=== PATIENT | male | born 1970 | race Caucasian/White ===

== ENCOUNTER 2022-11-24 13:33 | Inpatient (IN) ==
[2022-11-24 14:33] LABS: Basophils # (auto) 0.02 K/uL (0-0.2); Basophils % (auto) 0.2 %; Eosinophils # (auto) 0.04 K/uL (0-0.50); Eosinophils % (auto) 0.5 %; Hematocrit (blood only) 45.7 % (42.0-52.0); Immature Granulocytes # (auto) 0.02 K/uL (0.01-0.20); Immature Granulocytes % (auto) 0.2 %; Lymphocytes # (auto) 2.02 K/uL (1.2-3.4); Lymphocytes % (auto) 23.8 %; Mean Corpuscular Hemoglobin 31.3 pg (25.0-34.0); Mean Corpuscular Volume 89.3 fL (80.0-100.0); Mean Platelet Volume 9.6 fL (9.4-12.4); Monocytes # (auto) 0.63 K/uL (0.11-0.59); Monocytes % (auto) 7.4 %; Neutrophils # (auto) 5.76 K/uL (1.40-6.50); Neutrophils % (auto) 67.9 %; Platelet Count 217 K/uL (130-400); RDW Coefficient of Variation 11.9 % (11.5-14.5); RDW Standard Deviation 38.9 fL (36.4-46.3); Red Blood Count 5.12 M/uL (4.70-6.10); White Blood Count 8.49 K/ul (4.8-10.8)
[2022-11-24 14:41] LABS: Albumin Globulin Ratio 1.2 (0.9-2); Albumin Level 4.2 gm/dl (3.4-5.0); Bilirubin,Total 1.4 mg/dl (0.2-1.0); Calcium 9.8 mg/dl (8.6-10.3); Creatinine Clr Calc Pharmacy 90.1 ml/min; Est GFR (African American) 98.5 ml/min; Est GFR (Non-African American) 84.9 ml/min; Globulin 3.5 gm/dl (2.5-4.0); Potassium 3.8 mmol/L (3.5-5.1); Total Protein 7.7 gm/dl (6.0-8.3)
[2022-11-24] MEDS ORDERED: KETOROLAC TROMETHAMINE 15 MG/ML VIAL IV STA (15:35)
[2022-11-24] MEDS ORDERED: MoRPHine SULFATE 4 MG/ML 1 ML CARP\\VIAL IV STA (15:35)
[2022-11-24] MEDS ORDERED: ONDANSETRON INJ 2 MG/ML 2 ML VIAL IV STA (15:35)
[2022-11-24] MEDS ORDERED: SODIUM CHLORIDE 0.9% 1000ML 1,000 ML IV ONE (15:35)
[2022-11-24 15:38] LABS: Appearance Urine Cloudy (Clear); Bacteria Urine Automated Negative (Negative); Bilirubin Urine Negative (Negative); Blood Urine Negative (Negative); Color Urine Dark Yellow; Epithelial Cell Urine Auto >30 /lpf (0-5); Glucose Urine UA Negative (Negative); Ketones Urine 1+ (Negative); Leukocyte Esterase Urine Negative (Negative); Nitrite Urine Negative (Negative); RBC Urine Automated 0-4 /hpf (0-4); Specific Gravity Urine 1.017 (1.000-1.030); Urobilinogen Urine Negative (Negative); pH Urine 8.5 (4.5-7.5)
[2022-11-24 15:43] LABS: Protein Urine Trace (Negative)
--- NOTE | 2022-11-24 15:44 | Emergency Department Note ---
Impression & Plan Diverticulitis, Bowel perforation, Lower abdominal pain ED Provider Note NAME: BRENDAN CHAUDHARI AGE: 52 SEX: M : 1970 ARRIVES VIA: Walk-In INFORMANT: [Patient] ED PROVIDER(S): [Henrik Mcbride MD] CHIEF COMPLAINT: Abdominal pain HISTORY OF PRESENT ILLNESS: The patient is a 52-year-old male who states that 3 days ago he began feeling bloated. The next day, he began having some abdominal cramping and developed a fever. Things have worsened into today. The patient complains of lower abdominal pain. He has tried MiraLAX and now his stool is loose but he feels no better. He has had nausea without vomiting. No cough or congestion or respiratory complaints. No urinary complaints. He has no history of diverticulitis. He has never had surgical work on the abdomen other than an inguinal hernia repair on the right. PMHx/PSHx: See Below SOCIAL HISTORY: See Below. PHYSICAL EXAM: GENERAL: Patient is in no acute distress. HEENT: No acute trauma, normocephalic atraumatic, mucous membranes moist, no nasal congestion. NECK: No stridor, no adenopathy, no meningismus, trachea is midline. LUNGS: Clear to auscultation bilaterally, no wheeze, no rhonchi, breath sounds equal. HEART: Without murmurs gallops or rubs, regular rate and rhythm. ABDOMEN: Soft, mildly tender in the left lower quadrant and significantly tender in the right lower quadrant. No abdominal distention. EXTREMITIES: No cyanosis or edema, full range of motion of all the joints without pain or difficulty, no signs for acute trauma. NEUROLOGIC: Oriented x 3, no acute motor or sensory deficits, no focal weakness. SKIN: No rash, no jaundice, no diaphoresis. DIFFERENTIAL DIAGNOSIS: Appendicitis, diverticulitis, abscess, foodborne or viral illness, UTI, renal colic, among others. EMERGENCY DEPARTMENT COURSE/PROCEDURES: Prior/Outside records reviewed: None. MEDICAL DECISION MAKING: There is no leukocytosis or anemia. There is a normal platelet count. INR is slightly elevated, PTTR is normal. There is no renal failure or significant electrolyte abnormality. Bilirubin is mildly elevated, the remaining liver enzymes are unremarkable. Lipase is elevated at 238, not high enough to truly diagnose pancreatitis. Urinalysis suggests some dehydration, no infection. COVID test returned negative. Abdominal and pelvis CT shows diverticulitis with bowel perforation and presumed peritonitis. No abscess seen. On my exam, the patient was quite tender in the right lower quadrant. He was not toxic. Patient received IV saline for hydration. He was given IV Zofran and IV morphine. He received IV Toradol. The patient was given IV ceftriaxone and IV Flagyl as antibiotic coverage. Patient feels improved with our treatment here in the ED. I did speak with surgery, Dr. Cruz. He felt the patient should be admitted medically. No acute surgical intervention currently necessary. I spoke with the patient and case management, I did speak with the on-call hospitalist. Admission is warranted. DISPOSITION: Patient's presentation and findings warrant a hospital stay. Past Med/Surg History Medical History Deep vein thrombosis Diverticulitis of colon with perforation Factor V Leiden History of pulmonary embolus (PE) Surgical History H/O hernia repair History of colonoscopy Family History Other Breast cancer Family history of factor V Leiden mutation Family history of pancreatic cancer Social History Smoking Status: Never smoker Preferred Language: Turkish Feels Safe at Home: Yes Allergies Allergies Allergy/AdvReac Type Severity Reaction Status Date / Time Penicillins Allergy Unknown CHILDHOOD Verified 11/24/22 16:10 ALLERGY-UNKNOWN Home Meds Home Medications Medication Instructions Recorded Confirmed warfarin 5 mg tablet 5 mg PO DAILY 11/24/22 11/24/22 Results & Data (ED) Vital Signs Vital Signs - 24 hr 11/24/22 13:42 11/24/22 16:09 11/24/22 16:00 Temperature 36.3 C L Temperature Source Temporal Artery Scan Pulse Rate 60 77 Pulse Rate [Right Finger] 78 Pulse Rate from SpO2 Sensor Pulse Rhythm [Right Finger] Regular Pulse Strength [Right Finger] Normal Respiratory Rate 22 18 Respiratory Effort / Characteristics Non-Labored Non-Labored Respiratory Depth Normal Normal Respiratory Pattern Regular Regular Blood Pressure 109/55 L Blood Pressure [Right Arm] 110/71 Blood Pressure Mean 73 Blood Pressure Mean [Right Arm] 84 Blood Pressure Position [Right Arm] Lying Pulse Oximetry 99 98 Oxygen Delivery Method Room Air Room Air Sepsis Recent Fever Within 48 Hours No Sepsis New/Unexplained Change in Mental Status N/A Sepsis Action Taken by Nursing No Action Required 11/24/22 15:59 11/24/22 16:00 11/24/22 17:00 Temperature Temperature Source Pulse Rate 77 74 82 Pulse Rate [Right Finger] Pulse Rate from SpO2 Sensor 76 77 83 Pulse Rhythm [Right Finger] Pulse Strength [Right Finger] Respiratory Rate 16 14 19 Respiratory Effort / Characteristics Respiratory Depth Respiratory Pattern Blood Pressure Blood Pressure [Right Arm] Blood Pressure Mean Blood Pressure Mean [Right Arm] Blood Pressure Position [Right Arm] Pulse Oximetry 96 97 100 Oxygen Delivery Method Sepsis Recent Fever Within 48 Hours Sepsis New/Unexplained Change in Mental Status Sepsis Action Taken by Nursing 11/24/22 18:00 Temperature Temperature Source Pulse Rate Pulse Rate [Right Finger] Pulse Rate from SpO2 Sensor 80 Pulse Rhythm [Right Finger] Pulse Strength [Right Finger] Respiratory Rate 23 Respiratory Effort / Characteristics Respiratory Depth Respiratory Pattern Blood Pressure Blood Pressure [Right Arm] Blood Pressure Mean Blood Pressure Mean [Right Arm] Blood Pressure Position [Right Arm] Pulse Oximetry 97 Oxygen Delivery Method Sepsis Recent Fever Within 48 Hours Sepsis New/Unexplained Change in Mental Status Sepsis Action Taken by [facility] Medications Current Medication List: was personally reviewed by me Laboratory Data Attestation: I reviewed the patient's lab results. 11/24/22 13:52 11/24/22 13:52 Lab Results 11/24/22 11/24/22 11/24/22 Range/Units 13:52 13:52 13:52 WBC 8.49 (4.8-10.8) K/ul RBC 5.12 (4.70-6.10) M/uL Hgb 16.0 (14.0-18.0) g/dl Hct 45.7 (42.0-52.0) % MCV 89.3 (80.0-100.0) fL MCH 31.3 (25.0-34.0) pg MCHC 35.0 (32.0-36.0) g/dL RDW Std Deviation 38.9 (36.4-46.3) fL RDW Coeff of Calista 11.9 (11.5-14.5) % Plt Count 217 (130-400) K/uL MPV 9.6 (9.4-12.4) fL Immature Gran % (Auto) 0.2 % Neut % (Auto) 67.9 % Lymph % (Auto) 23.8 % [place] % (Auto) 7.4 % Eos % (Auto) 0.5 % Baso % (Auto) 0.2 % Neut # (Auto) 5.76 (1.40-6.50) K/uL Lymph # (Auto) 2.02 (1.2-3.4) K/uL [place] # (Auto) 0.63 H (0.11-0.59) K/uL Eos # (Auto) 0.04 (0-0.50) K/uL Baso # (Auto) 0.02 (0-0.2) K/uL Immature Gran # (Auto) 0.02 (0.01-0.20) K/uL PT 13.2 H (9.0-12.0) Seconds INR 1.2 H (0.9-1.1) APTT 28.6 (21.0-31.0) Seconds PTT Ratio 1.0 Sodium 136 (136-145) mmol/L Potassium 3.8 (3.5-5.1) mmol/L Chloride 101 (98-107) mmol/L Carbon Dioxide 24 (21-32) mmol/L Anion Gap 11 (3-11) BUN 15 (6-23) mg/dl Creatinine 1.00 (0.6-1.4) mg/dl Est Cr Clr Drug Dosing 90.1 ml/min Est GFR ( Amer) 98.5 ml/min Est GFR (Non-Af Amer) 84.9 ml/min BUN/Creatinine Ratio 15.0 (10-20) Glucose 109 H (70-99(Fasting)) mg/dl Calcium 9.8 (8.6-10.3) mg/dl Total Bilirubin 1.4 H (0.2-1.0) mg/dl AST 17 (13-39) U/L ALT 16 (7-52) U/L Alkaline Phosphatase 55 (34-104) U/L Total Protein 7.7 (6.0-8.3) gm/dl Albumin 4.2 (3.4-5.0) gm/dl Globulin 3.5 (2.5-4.0) gm/dl Albumin/Globulin Ratio 1.2 (0.9-2) Lipase 238 H (11-82) U/L Urine Color Urine Appearance (Clear) Urine pH (4.5-7.5) Ur Specific [place] (1.000-1.030) Urine Protein (Negative) Urine Glucose (UA) (Negative) Urine Ketones (Negative) Urine Blood (Negative) Urine Nitrite (Negative) Urine Bilirubin (Negative) Urine Urobilinogen (Negative) Ur Leukocyte Esterase (Negative) Urine WBC (Auto) (0-5) /hpf Urine RBC (Auto) (0-4) /hpf U Hyaline Cast (Auto) (0-5) /lpf U Epithel Cells (Auto) (0-5) /lpf Urine Bacteria (Auto) (Negative) Ur Renal Epithelial Cell Urine Mucus (None Prsent) SARS-CoV-2, RNA, NAAT (NEGATIVE) 11/24/22 11/24/22 Range/Units 14:38 16:45 WBC (4.8-10.8) K/ul RBC (4.70-6.10) M/uL Hgb (14.0-18.0) g/dl Hct (42.0-52.0) % MCV (80.0-100.0) fL MCH (25.0-34.0) pg MCHC (32.0-36.0) g/dL RDW Std Deviation (36.4-46.3) fL RDW Coeff of Calista (11.5-14.5) % Plt Count (130-400) K/uL MPV (9.4-12.4) fL Immature Gran % (Auto) % Neut % (Auto) % Lymph % (Auto) % [place] % (Auto) % Eos % (Auto) % Baso % (Auto) % Neut # (Auto) (1.40-6.50) K/uL Lymph # (Auto) (1.2-3.4) K/uL [place] # (Auto) (0.11-0.59) K/uL Eos # (Auto) (0-0.50) K/uL Baso # (Auto) (0-0.2) K/uL Immature Gran # (Auto) (0.01-0.20) K/uL PT (9.0-12.0) Seconds INR (0.9-1.1) APTT (21.0-31.0) Seconds PTT Ratio Sodium (136-145) mmol/L Potassium (3.5-5.1) mmol/L Chloride (98-107) mmol/L Carbon Dioxide (21-32) mmol/L Anion Gap (3-11) BUN (6-23) mg/dl Creatinine (0.6-1.4) mg/dl Est Cr Clr Drug Dosing ml/min Est GFR ( Amer) ml/min Est GFR (Non-Af Amer) ml/min BUN/Creatinine Ratio (10-20) Glucose (70-99(Fasting)) mg/dl Calcium (8.6-10.3) mg/dl Total Bilirubin (0.2-1.0) mg/dl AST (13-39) U/L ALT (7-52) U/L Alkaline Phosphatase (34-104) U/L Total Protein (6.0-8.3) gm/dl Albumin (3.4-5.0) gm/dl Globulin (2.5-4.0) gm/dl Albumin/Globulin Ratio (0.9-2) Lipase (11-82) U/L Urine Color Dark Yellow Urine Appearance Cloudy A (Clear) Urine pH 8.5 H (4.5-7.5) Ur Specific [place] 1.017 (1.000-1.030) Urine Protein Trace H (Negative) Urine Glucose (UA) Negative (Negative) Urine Ketones 1+ H (Negative) Urine Blood Negative (Negative) Urine Nitrite Negative (Negative) Urine Bilirubin Negative (Negative) Urine Urobilinogen Negative (Negative) Ur Leukocyte Esterase Negative (Negative) Urine WBC (Auto) 1-5 (0-5) /hpf Urine RBC (Auto) 0-4 (0-4) /hpf U Hyaline Cast (Auto) 5-10 H (0-5) /lpf U Epithel Cells (Auto) >30 H (0-5) /lpf Urine Bacteria (Auto) Negative (Negative) Ur Renal Epithelial Cell Not Reportable Urine Mucus Present A (None Prsent) SARS-CoV-2, RNA, NAAT NEGATIVE (NEGATIVE) Administered Medications Enoxaparin Sodium (Enoxaparin Inj 40 Mg/0.4 Ml Syr) 40 mg SQ Q24H LENI Stop: 12/24/22 21:59 Last Admin: 11/24/22 21:48 Dose: 40 mg Documented By: PB Sodium Chloride (Nss 1000ml) 1,000 mls @ 125 mls/hr IV .Q8H LENI Stop: 11/25/22 13:23 Last Admin: 11/24/22 21:47 Dose: 125 mls/hr Documented By: PB Discontinued Medications Sodium Chloride (Nss 1000ml) 1,000 mls @ 999 mls/hr IV .Q1H1M ONE Stop: 11/24/22 16:35 Last Infusion: 11/24/22 18:19 Dose: 0 mls/hr Documented By: Admin: 11/24/22 16:04 Dose: 999 mls/hr Documented By: HARVINDER Ceftriaxone Sodium (Rocephin) 2,000 mg in 70 mls @ 140 mls/hr IV NOW STA Stop: 11/24/22 17:23 Last Infusion: 11/24/22 17:48 Dose: 0 mls/hr Documented By: Admin: 11/24/22 17:26 Dose: 140 mls/hr Documented By: HARVINDER Metronidazole (Flagyl) 500 mg in 100 mls @ 100 mls/hr IV NOW STA; Protocol Stop: 11/24/22 17:53 Last Infusion: 11/24/22 19:26 Dose: 0 mls/hr Documented By: Admin: 11/24/22 17:47 Dose: 100 mls/hr Documented By: HARVINDER Ioversol (Optiray 320 100ml) 95 ml IV ONCE ONE Stop: 11/24/22 15:47 Last Admin: 11/24/22 15:46 Dose: 95 ml Documented By: STANISLAW Ketorolac Tromethamine (Ketorolac Tromethamine 15 Mg/Ml Vial) 15 mg IV NOW STA Stop: 11/24/22 15:36 Last Admin: 11/24/22 16:04 Dose: 15 mg Documented By: HARVINDER Morphine Sulfate (Morphine Sulfate 4 Mg/Ml 1 Ml Carp\Vial) 4 mg IV NOW STA Stop: 11/24/22 15:36 Last Admin: 11/24/22 16:04 Dose: 4 mg Documented By: HARVINDER Ondansetron HCl (Ondansetron Inj 2 Mg/Ml 2 Ml Vial) 4 mg IV NOW STA Stop: 11/24/22 15:36 Last Admin: 11/24/22 16:04 Dose: 4 mg Documented By: [facility] Imaging Data Radiologist's Impression: Abdomen/Pelvis CT 11/24/22 15:35 CT SCAN OF THE ABDOMEN AND PELVIS WITH IV CONTRAST CLINICAL HISTORY: Right lower quadrant abdominal pain. COMPARISON STUDY: No priors. TECHNIQUE: Following the IV administration of 95 cc of Optiray 320, CT scan of the abdomen and pelvis is performed from the lung bases to the proximal femora. Images are reviewed in the axial, sagittal, and coronal planes. IV contrast was administered without complication. A dose lowering technique was utilized adhering to the principles of ALARA. CT DOSE: 633.09 mGy.cm FINDINGS: Lung bases: The heart is normal in size and without pericardial effusion. There are bilateral fat-containing Bochdalek hernias. Mild atelectasis is noted at the lung bases. The lung bases are otherwise clear. Liver: The contrast-enhanced liver is normal in size, contour, and attenuation. There is no intrahepatic biliary ductal dilatation. The hepatic veins and portal veins are patent. Gallbladder: Unremarkable. Spleen: Normal in size and attenuation. Pancreas: Unremarkable. Adrenal glands: Unremarkable. Kidneys: The contrast enhanced kidneys are normal in size and without hydronephrosis. The kidneys enhance symmetrically. Abdominal vasculature: The abdominal aorta is normal in course and caliber. There is a fat-containing umbilical hernia. Bowel: There is no bowel obstruction. There is moderate sigmoid diverticulosis. There is wall thickening with pericolic inflammation involving the sigmoid colon consistent with acute diverticulitis. There is evidence of perforation, with gas adjacent to the sigmoid colon on image #[id number]. No organized/drainable fluid collection is seen to indicate abscess. There is mild diffuse wall thickening and hyperemia throughout the small bowel, likely related to peritonitis. The appendix appears mildly thick-walled and hyperemic, also likely related to peritonitis. Acute appendicitis is considered unlikely. Peritoneum: There are numerous small foci of intraperitoneal free air. There is trace perihepatic ascites, as well as a small volume of minimally complex free fluid in the pelvis. Peritoneal thickening and enhancement is noted in the pelvis. Lymphadenopathy: None. Pelvic viscera: The bladder is decompressed and appears thick-walled. The prostate and seminal vesicles are normal as visualized. There is evidence of previous right inguinal herniorrhaphy. Skeletal structures: No lytic or blastic lesions are seen. IMPRESSION: 1. Acute sigmoid diverticulitis. 2. Foci of intraperitoneal free air indicating perforation. 3. There is evidence of peritonitis with a small volume of abdominopelvic ascites and peritoneal thickening/enhancement in the pelvis. No organized/drainable fluid collection is identified at this time. 4. Mild wall thickening and hyperemia is seen throughout the small bowel and also involving the appendix. This is likely secondary to peritonitis. 5. The bladder wall appears thickened. Correlate with clinical findings and urinalysis. 6. Additional findings as above. ACT 112: Negative or not required by law. Electronically signed by: Henrik Benton M.D. 11/24/2022 4:21 PM Discharge Plan Visit Data Chief Complaint: Abdominal Pain Stated Complaint: STOMACH PAIN ED Provider: Henrik Mcbride Discharge Problem: Diverticulitis, Bowel perforation, Lower abdominal pain Patient Disposition: Admitted As Inpatient Condition: Fair Discharge Instructions Interventions: ED Discharge Assessment Last Done: 11/24/22 22:29
[2022-11-24] MEDS ORDERED: OPTIRAY 320 100ml IV ONE (15:46)
[2022-11-24 16:16] LABS: Mucus Urine Present (None Prsent)
[2022-11-24 16:19] LABS: INR 1.2 (0.9-1.1); Partial Thromboplastin Time 28.6 Seconds (21.0-31.0); Prothrombin Time 13.2 Seconds (9.0-12.0)
--- NOTE | 2022-11-24 16:23 | CT Scan Report ---
CT SCAN OF THE ABDOMEN AND PELVIS WITH IV CONTRAST CLINICAL HISTORY: Right lower quadrant abdominal pain. COMPARISON STUDY: No priors. TECHNIQUE: Following the IV administration of 95 cc of Optiray 320, CT scan of the abdomen and pelvi s is performed from the lung bases to the proximal femora. Images are reviewed in the axial, sagittal , and coronal planes. IV contrast was administered without complication. A dose lowering technique wa s utilized adhering to the principles of ALARA. CT DOSE: 633.09 mGy.cm FINDINGS: Lung bases: The heart is normal in size and without pericardial effusion. There are bilateral fat-con taining Bochdalek hernias. Mild atelectasis is noted at the lung bases. The lung bases are otherwise clear. Liver: The contrast-enhanced liver is normal in size, contour, and attenuation. There is no intrahepa tic biliary ductal dilatation. The hepatic veins and portal veins are patent. Gallbladder: Unremarkable. Spleen: Normal in size and attenuation. Pancreas: Unremarkable. Adrenal glands: Unremarkable. Kidneys: The contrast enhanced kidneys are normal in size and without hydronephrosis. The kidneys enh ance symmetrically. Abdominal vasculature: The abdominal aorta is normal in course and caliber. There is a fat-containing umbilical hernia. Bowel: There is no bowel obstruction. There is moderate sigmoid diverticulosis. There is wall thicken ing with pericolic inflammation involving the sigmoid colon consistent with acute diverticulitis. The re is evidence of perforation, with gas adjacent to the sigmoid colon on image #[id number]. No organized/pao inable fluid collection is seen to indicate abscess. There is mild diffuse wall thickening and hypere manjeet throughout the small bowel, likely related to peritonitis. The appendix appears mildly thick-wall ed and hyperemic, also likely related to peritonitis. Acute appendicitis is considered unlikely. Peritoneum: There are numerous small foci of intraperitoneal free air. There is trace perihepatic asc ites, as well as a small volume of minimally complex free fluid in the pelvis. Peritoneal thickening and enhancement is noted in the pelvis. Lymphadenopathy: None. Pelvic viscera: The bladder is decompressed and appears thick-walled. The prostate and seminal vesicl es are normal as visualized. There is evidence of previous right inguinal herniorrhaphy. Skeletal structures: No lytic or blastic lesions are seen. IMPRESSION: 1. Acute sigmoid diverticulitis. 2. Foci of intraperitoneal free air indicating perforation. 3. There is evidence of peritonitis with a small volume of abdominopelvic ascites and peritoneal thic kening/enhancement in the pelvis. No organized/drainable fluid collection is identified at this time. 4. Mild wall thickening and hyperemia is seen throughout the small bowel and also involving the appen gregory. This is likely secondary to peritonitis. 5. The bladder wall appears thickened. Correlate with clinical findings and urinalysis. 6. Additional findings as above. ACT 112: Negative or not required by law. Electronically signed by: Henrik Benton M.D. 11/24/2022 4:21 PM
[2022-11-24] MEDS ORDERED: metroNIDAZOLE 500 MG/100 ML BAG IV STA (16:54)
[2022-11-24] MEDS ORDERED: cefTRIAXone SODIUM 2,000 MG/70 ML BAG IV STA (16:54)
--- NOTE | 2022-11-24 18:15 | History & Physical Report ---
Date of Service November 24, 2022 Assessment & Plan (1) Diverticulitis of colon with perforation: Plan: Patient is a 52-year-old male with PMH of factor V Leiden, history of DVT/PE, chronically anticoagulated on warfarin presented to ER with complaint of abdominal pain, tactile fevers, anorexia x 3 days. In ER afebrile, vital stable. No leukocytosis. Lipase 238 CT abdomen and pelvis: Acute sigmoid diverticulitis. Foci of intraperitoneal free air indicating perforation. There is evidence of peritonitis with a small volume of abdominopelvic ascites and peritoneal thickening/enhancement in the pelvis. No organized/drainable fluid collection is identified at this time. Mild wall thickening and hyperemia is seen throughout the small bowel and also involving the appendix. This is likely secondary to peritonitis. The bladder wall appears thickened. In ER given IV Rocephin, IV Flagyl, 1L NSS, IV Toradol, IV morphine 4 mg NPO IVF Continue Rocephin, Flagyl IV Tylenol, IV morphine as needed pain General surgery consult, recommends conservative measures currently with IV antibiotics and no current indication for surgery Hold home warfarin in case of surgery CBC, CMP, lipase in a.m. (2) Factor V Leiden: (3) History of pulmonary embolus (PE): Plan: History DVT in 2009, 2014. History PE in 2009. Chronically anticoagulated on warfarin INR: 1.2. Patient has not taken warfarin couple days INR in a.m. Hold warfarin. Bridge with Lovenox DVT Prophylaxis Lovenox SQ Full Code as per discussion with pt Follows with Dr Chand for routine care Pt was seen and care coordinated with Dr Chairez. See addendum I spent a total of 75 minutes reviewing notes, outpatient records, labs, medication, coordinating, documenting and providing care for this patient excluding time spent in the performance of separately billed services. History of Present Illness Chief Complaint: Abdominal pain Primary Care Provider: Ivy Chand DO Patient is a 52-year-old male with PMH of factor V Leiden, history of DVT/PE, chronically anticoagulated on warfarin presented to ER with complaint of abdominal pain x 3 days. Patient states 3 days ago started with some abdominal bloating which progressed to right lower quadrant abdominal pain with varying intensity. He reports constipation for the past several days. Past 3 days has taken Miralax with only small hard BMs past. Denies nausea, vomiting. Does have decreased appetite and has not been eating or drinking well. Has also been having intermittent episodes of sweats and chills. Has not taken his temperature at home. No history of diverticulitis in past. History of colonoscopy in the past showing diverticulosis. History of hernia repair 2021. Denies melena, hematochezia PADRON, dizziness, syncope, CP, SOB, cough, rhinorrhea, weakness, extremity edema, rashes, dysuria, hematuria, urinary frequency, urinary retention. Allergies Allergy/AdvReac Type Severity Reaction Status Date / Time Penicillins Allergy Unknown CHILDHOOD Verified 11/24/22 16:10 ALLERGY-UNKNOWN Home Medications Medication Instructions Recorded Confirmed Type warfarin 5 mg tablet 5 mg PO DAILY 11/24/22 11/24/22 History Past Med/Surg History Medical History (Updated 11/24/22 @ 18:52 by Pamela Marin PA-C) Deep vein thrombosis Diverticulitis of colon with perforation Factor V Leiden History of pulmonary embolus (PE) Surgical History H/O hernia repair History of colonoscopy Family History Other Breast cancer Family history of factor V Leiden mutation Family history of pancreatic cancer Social History Smoking Status: Never smoker Preferred Language: Venezuelan Feels Safe at Home: Yes Review of Systems Review of Systems: All systems reviewed & are unremarkable except as noted in HPI & below Physical Exam Physical Exam: General: no distress, WDWN Head: normocephalic, atraumatic Eyes: conjunctiva non-injected, anicteric ENT: normal inspection external ears, nose, mucous membranes moist Neck: supple, trachea midline Lungs: clear, no respiratory distress, no wheezing/rhonchi/rales CV: RRR, no murmur, no pretibial edema Abd: normal BS, soft, +tenderness to palpation RLQ, LLQ Ext: no cyanosis, no calf tenderness Neuro: A&O x 3, no focal deficits noted, normal affect Skin: warm, dry Results & Data Results & Data Vital Signs (Past 12 Hours) Vital Signs Temp Pulse Pulse Resp BP BP Pulse Ox 11/24/22 16:00 78 18 110/71 98 11/24/22 16:09 77 11/24/22 13:42 36.3 C L 60 22 109/55 L 99 O2 Del Method 11/24/22 16:00 Room Air 11/24/22 16:09 11/24/22 13:42 Room Air Laboratory Results Short CBC 11/24/22 Range/Units 13:52 WBC 8.49 (4.8-10.8) K/ul Hgb 16.0 (14.0-18.0) g/dl Hct 45.7 (42.0-52.0) % Plt Count 217 (130-400) K/uL BMP 11/24/22 13:52 Sodium 136 Potassium 3.8 Chloride 101 Carbon Dioxide 24 BUN 15 Creatinine 1.00 Glucose 109 H Calcium 9.8 Liver Function 11/24/22 Range/Units 13:52 Total Bilirubin 1.4 H (0.2-1.0) mg/dl AST 17 (13-39) U/L ALT 16 (7-52) U/L Alkaline Phosphatase 55 (34-104) U/L Albumin 4.2 (3.4-5.0) gm/dl Urine 11/24/22 Range/Units 14:38 Urine Color Dark Yellow Urine Appearance Cloudy A (Clear) Urine pH 8.5 H (4.5-7.5) Ur Specific [place] 1.017 (1.000-1.030) Urine Protein Trace H (Negative) Urine Glucose (UA) Negative (Negative) Diagnostic Findings Abdomen/Pelvis CT 11/24/22 15:35 CT SCAN OF THE ABDOMEN AND PELVIS WITH IV CONTRAST CLINICAL HISTORY: Right lower quadrant abdominal pain. COMPARISON STUDY: No priors. TECHNIQUE: Following the IV administration of 95 cc of Optiray 320, CT scan of the abdomen and pelvis is performed from the lung bases to the proximal femora. Images are reviewed in the axial, sagittal, and coronal planes. IV contrast was administered without complication. A dose lowering technique was utilized adhering to the principles of ALARA. CT DOSE: 633.09 mGy.cm FINDINGS: Lung bases: The heart is normal in size and without pericardial effusion. There are bilateral fat-containing Bochdalek hernias. Mild atelectasis is noted at the lung bases. The lung bases are otherwise clear. Liver: The contrast-enhanced liver is normal in size, contour, and attenuation. There is no intrahepatic biliary ductal dilatation. The hepatic veins and portal veins are patent. Gallbladder: Unremarkable. Spleen: Normal in size and attenuation. Pancreas: Unremarkable. Adrenal glands: Unremarkable. Kidneys: The contrast enhanced kidneys are normal in size and without hydronephrosis. The kidneys enhance symmetrically. Abdominal vasculature: The abdominal aorta is normal in course and caliber. There is a fat-containing umbilical hernia. Bowel: There is no bowel obstruction. There is moderate sigmoid diverticulosis. There is wall thickening with pericolic inflammation involving the sigmoid colon consistent with acute diverticulitis. There is evidence of perforation, with gas adjacent to the sigmoid colon on image #277. No organized/drainable fluid collection is seen to indicate abscess. There is mild diffuse wall thickening and hyperemia throughout the small bowel, likely related to peritonitis. The appendix appears mildly thick-walled and hyperemic, also likely related to peritonitis. Acute appendicitis is considered unlikely. Peritoneum: There are numerous small foci of intraperitoneal free air. There is trace perihepatic ascites, as well as a small volume of minimally complex free fluid in the pelvis. Peritoneal thickening and enhancement is noted in the pelvis. Lymphadenopathy: None. Pelvic viscera: The bladder is decompressed and appears thick-walled. The prostate and seminal vesicles are normal as visualized. There is evidence of previous right inguinal herniorrhaphy. Skeletal structures: No lytic or blastic lesions are seen. IMPRESSION: 1. Acute sigmoid diverticulitis. 2. Foci of intraperitoneal free air indicating perforation. 3. There is evidence of peritonitis with a small volume of abdominopelvic ascites and peritoneal thickening/enhancement in the pelvis. No organized/drainable fluid collection is identified at this time. 4. Mild wall thickening and hyperemia is seen throughout the small bowel and also involving the appendix. This is likely secondary to peritonitis. 5. The bladder wall appears thickened. Correlate with clinical findings and urinalysis. 6. Additional findings as above. ACT 112: Negative or not required by law. Electronically signed by: Henrik Benton M.D. 11/24/2022 4:21 PM Supervising Physician Co-Signing Physician Notes Patient seen and examined at bedside. Discussed with above provider. Patient is a 52-year-old male with possible history of factor V Leiden who presents with abdominal pain. CT abdomen and pelvis was done which showed acute sigmoid diverticulitis; foci of intraperitoneal free air indicating perforation was seen. Surgery was consulted; recommended conservative care with IV antibiotics and IV fluids. Pain control with Tylenol and morphine Patient is started on Lovenox 40 mg subcu as DVT prophylaxis. Full dose anticoagulation was not given anticipating possible need for surgery.
--- NOTE | 2022-11-24 18:35 | Surgery Consultation ---
Date of Consultation November 24, 2022 Assessment & Plan (1) Diverticulitis of colon with perforation: 52-year-old male with diverticulitis with contained perforation and no abscess, currently stable No indication for acute surgical management Admit to medicine, IV antibiotics, bowel rest Recommend hold warfarin, bridged with Lovenox in case surgical intervention is necessary during this hospital stay Surgery will continue to follow, appreciate medicine assistance of this patient (2) Factor V Leiden: (3) Deep vein thrombosis: (4) Pulmonary embolism: History of Present Illness Reason for Consultation: Diverticulitis History of Present Illness 52-year-old male presented to the emergency department with complaints of lower abdominal pain x3 days. He has never had pain like this before. Prior colonoscopy in August that showed diverticula with no other abnormalities. He has been having some low-grade fevers and has not had much of an appetite. Prior laparoscopic right inguinal hernia repair, no other abdominal surgeries. History of factor V Leiden and DVT and PE, currently on Coumadin. Allergies Allergy/AdvReac Type Severity Reaction Status Date / Time Penicillins Allergy Unknown CHILDHOOD Verified 11/24/22 16:10 ALLERGY-UNKNOWN Home Medications Medication Instructions Recorded Confirmed Type warfarin 5 mg tablet 5 mg PO QPM 11/24/22 11/24/22 History Patient History Medical History (Updated 11/24/22 @ 18:34 by Sonny Cruz DO, FACS) Deep vein thrombosis Diverticulitis of colon with perforation Factor V Leiden Pulmonary embolism Surgical History (Updated 11/24/22 @ 18:13 by Pamela Marin PA-C) H/O hernia repair History of colonoscopy Family History (Updated 11/24/22 @ 18:14 by Pamela Marin PA-C) Other Breast cancer Family history of factor V Leiden mutation Family history of pancreatic cancer Social History Smoking Status: Never smoker Preferred Language: Tongan Feels Safe at Home: Yes Review of Systems Review of Systems: All systems reviewed & are unremarkable except as noted in HPI & below Physical Exam Constitutional: WD/WN, vitals as above Respiratory: normal respiratory effort, lungs clear to auscultation Cardiovascular: RRR, no murmur, no edema Gastrointestinal (Abdomen): Percussion/Palpation: + abdomen tender (Tender to palpation with localized guarding in left lower quadrant), + guarding (Localized left lower quadrant) and abdomen soft; abdomen not rigid and no hepatosplenomegaly Results & Data Vital Signs (Past 12 Hours) Vital Signs Temp Pulse Pulse Resp BP BP Pulse Ox 11/24/22 16:00 78 18 110/71 98 11/24/22 16:09 77 11/24/22 13:42 36.3 C L 60 22 109/55 L 99 O2 Del Method 11/24/22 16:00 Room Air 11/24/22 16:09 11/24/22 13:42 Room Air Laboratory Results Laboratory Results - last 24 hr 11/24/22 11/24/22 11/24/22 13:52 13:52 13:52 WBC 8.49 RBC 5.12 Hgb 16.0 Hct 45.7 MCV 89.3 MCH 31.3 MCHC 35.0 RDW Std Deviation 38.9 RDW Coeff of Calista 11.9 Plt Count 217 MPV 9.6 Immature Gran % (Auto) 0.2 Neut % (Auto) 67.9 Lymph % (Auto) 23.8 [place] % (Auto) 7.4 Eos % (Auto) 0.5 Baso % (Auto) 0.2 Neut # (Auto) 5.76 Lymph # (Auto) 2.02 [place] # (Auto) 0.63 H Eos # (Auto) 0.04 Baso # (Auto) 0.02 Immature Gran # (Auto) 0.02 PT 13.2 H INR 1.2 H APTT 28.6 PTT Ratio 1.0 Sodium 136 Potassium 3.8 Chloride 101 Carbon Dioxide 24 Anion Gap 11 BUN 15 Creatinine 1.00 Est Cr Clr Drug Dosing 90.1 Est GFR ( Amer) 98.5 Est GFR (Non-Af Amer) 84.9 BUN/Creatinine Ratio 15.0 Glucose 109 H Calcium 9.8 Total Bilirubin 1.4 H AST 17 ALT 16 Alkaline Phosphatase 55 Total Protein 7.7 Albumin 4.2 Globulin 3.5 Albumin/Globulin Ratio 1.2 Lipase 238 H Urine Color Urine Appearance Urine pH Ur Specific [place] Urine Protein Urine Glucose (UA) Urine Ketones Urine Blood Urine Nitrite Urine Bilirubin Urine Urobilinogen Ur Leukocyte Esterase Urine WBC (Auto) Urine RBC (Auto) U Hyaline Cast (Auto) U Epithel Cells (Auto) Urine Bacteria (Auto) Ur Renal Epithelial Cell Urine Mucus SARS-CoV-2, RNA, NAAT 11/24/22 11/24/22 14:38 16:45 WBC RBC Hgb Hct MCV MCH MCHC RDW Std Deviation RDW Coeff of Calista Plt Count MPV Immature Gran % (Auto) Neut % (Auto) Lymph % (Auto) [place] % (Auto) Eos % (Auto) Baso % (Auto) Neut # (Auto) Lymph # (Auto) [place] # (Auto) Eos # (Auto) Baso # (Auto) Immature Gran # (Auto) PT INR APTT PTT Ratio Sodium Potassium Chloride Carbon Dioxide Anion Gap BUN Creatinine Est Cr Clr Drug Dosing Est GFR ( Amer) Est GFR (Non-Af Amer) BUN/Creatinine Ratio Glucose Calcium Total Bilirubin AST ALT Alkaline Phosphatase Total Protein Albumin Globulin Albumin/Globulin Ratio Lipase Urine Color Dark Yellow Urine Appearance Cloudy A Urine pH 8.5 H Ur Specific [place] 1.017 Urine Protein Trace H Urine Glucose (UA) Negative Urine Ketones 1+ H Urine Blood Negative Urine Nitrite Negative Urine Bilirubin Negative Urine Urobilinogen Negative Ur Leukocyte Esterase Negative Urine WBC (Auto) 1-5 Urine RBC (Auto) 0-4 U Hyaline Cast (Auto) 5-10 H U Epithel Cells (Auto) >30 H Urine Bacteria (Auto) Negative Ur Renal Epithelial Cell Not Reportable Urine Mucus Present A SARS-CoV-2, RNA, NAAT NEGATIVE Diagnostic Findings I personally reviewed and interpreted the CT scan and agree with the assessment of diverticulitis with small contained perforation with no abscess. [place], [place] [phone] CT Scan Report Patient:BRENDAN CHAUDHARI Admit Date:11/24/22 MR#:[id number] Address1:[address] Acct ID:[id number] Address2: Date:1970 [facility] Zip:[place] [address] Age:52 Location:ED Sex:M Room/Bed: Att Phy: Diagnosis:STOMACH PAIN Pavithra Phy:Hesham Orta MD Service Date:11/24/22 [facility] Phy: Interpreting Phy:Henrik Benton MDAdmit Phy: Ordering Phy:Henrik Mcbride M.D. cc: ~ CT SCAN OF THE ABDOMEN AND PELVIS WITH IV CONTRAST CLINICAL HISTORY: Right lower quadrant abdominal pain. COMPARISON STUDY: No priors. TECHNIQUE: Following the IV administration of 95 cc of Optiray 320, CT scan of the abdomen and pelvis is performed from the lung bases to the proximal femora. Images are reviewed in the axial, sagittal, and coronal planes. IV contrast was administered without complication. A dose lowering technique was utilized adhering to the principles of ALARA. CT DOSE: 633.09 mGy.cm FINDINGS: Lung bases: The heart is normal in size and without pericardial effusion. There are bilateral fat-containing Bochdalek hernias. Mild atelectasis is noted at the lung bases. The lung bases are otherwise clear. Liver: The contrast-enhanced liver is normal in size, contour, and attenuation. There is no intrahepatic biliary ductal dilatation. The hepatic veins and portal veins are patent. Gallbladder: Unremarkable. Spleen: Normal in size and attenuation. Pancreas: Unremarkable. Adrenal glands: Unremarkable. Kidneys: The contrast enhanced kidneys are normal in size and without hydronephrosis. The kidneys enhance symmetrically. Abdominal vasculature: The abdominal aorta is normal in course and caliber. There is a fat-containing umbilical hernia. Bowel: There is no bowel obstruction. There is moderate sigmoid diverticulosis. There is wall thickening with pericolic inflammation involving the sigmoid colon consistent with acute diverticulitis. There is evidence of perforation, with gas adjacent to the sigmoid colon on image #277. No organized/drainable fluid collection is seen to indicate abscess. There is mild diffuse wall thickening and hyperemia throughout the small bowel, likely related to peritonitis. The appendix appears mildly thick-walled and hyperemic, also likely related to peritonitis. Acute appendicitis is considered unlikely. Peritoneum: There are numerous small foci of intraperitoneal free air. There is trace perihepatic ascites, as well as a small volume of minimally complex free fluid in the pelvis. Peritoneal thickening and enhancement is noted in the pelvis. Lymphadenopathy: None. Pelvic viscera: The bladder is decompressed and appears thick-walled. The prostate and seminal vesicles are normal as visualized. There is evidence of previous right inguinal herniorrhaphy. Skeletal structures: No lytic or blastic lesions are seen. IMPRESSION: 1. Acute sigmoid diverticulitis. 2. Foci of intraperitoneal free air indicating perforation. 3. There is evidence of peritonitis with a small volume of abdominopelvic ascites and peritoneal thickening/enhancement in the pelvis. No organized/drainable fluid collection is identified at this time. 4. Mild wall thickening and hyperemia is seen throughout the small bowel and also involving the appendix. This is likely secondary to peritonitis. 5. The bladder wall appears thickened. Correlate with clinical findings and urinalysis. 6. Additional findings as above. PG Care Time/CCT Total # of Minutes Spent Total Time Spent with Patient: Total time spent is greater than 50% in coordination of care (as documented) at patient's floor/unit and/or counseling patient: Coding Level of Care Code 57350 OFFICE CONSULT LVL 08/12M Diagnoses Diverticulitis of colon with perforation K57.20 Factor V Leiden D68.51 Deep vein thrombosis I82.409 Pulmonary embolism I26.99
[2022-11-24] MEDS ORDERED: ONDANSETRON INJ 2 MG/ML 2 ML VIAL IV PRN (21:24)
[2022-11-24] MEDS ORDERED: MoRPHine SULFATE 4 MG/ML 1 ML CARP\\VIAL IV PRN (21:24)
[2022-11-24] MEDS ORDERED: ACETAMINOPHEN 1,000 MG/100 ML VIAL IV PRN (21:24)
[2022-11-24] MEDS: SODIUM CHLORIDE 0.9% 1000ML 1,000 ML IV SCH (21:47)
[2022-11-24] MEDS: ENOXAPARIN INJ 40 MG/0.4 ML SYR SQ SCH (21:48)
[2022-11-25] MEDS: metroNIDAZOLE 500 MG/100 ML BAG IV SCH ×3 (01:47→18:31)
[2022-11-25] MEDS: SODIUM CHLORIDE 0.9% 1000ML 1,000 ML IV SCH (05:27)
[2022-11-25 08:14] LABS: Hematocrit (blood only) 39.1 % (42.0-52.0); Hemoglobin 13.3 g/dl (14.0-18.0); Mean Corpuscular Hemoglobin 31.4 pg (25.0-34.0); Mean Corpuscular Volume 92.2 fL (80.0-100.0); Mean Platelet Volume 9.4 fL (9.4-12.4); Platelet Count 185 K/uL (130-400); RDW Coefficient of Variation 11.9 % (11.5-14.5); RDW Standard Deviation 40.6 fL (36.4-46.3); Red Blood Count 4.24 M/uL (4.70-6.10)
[2022-11-25 08:44] LABS: Albumin Globulin Ratio 1.1 (0.9-2); Albumin Level 3.1 gm/dl (3.4-5.0); BUN Creatinine Ratio 19.6 (10-20); Bilirubin,Total 1.1 mg/dl (0.2-1.0); Calcium 7.9 mg/dl (8.6-10.3); Est GFR (African American) 108.9 ml/min; Globulin 2.7 gm/dl (2.5-4.0); Potassium 3.7 mmol/L (3.5-5.1); Total Protein 5.8 gm/dl (6.0-8.3)
[2022-11-25 08:54] LABS: INR 1.3 (0.9-1.1)
--- NOTE | 2022-11-25 09:02 | Surgery Progress Note ---
Date of Service November 25, 2022 Assessment & Plan (1) Diverticulitis: Plan: Patient here with diverticulitis and microperforation WBC 8, patient with stable vitals and is afebrile Pain much improved, but still present in lower abdomen Continue course of IV abx May have sips/chips today OOB as tolerates Will follow Admission and Anticipated Discharge Date Admission Date: November 24, 2022 Supervising Physician Co-Signing Physician Notes Patient seen and examined, labs reviewed, agree with above. Feels better, no bowel movement, some flatus. Afebrile stable vitals. Abdomen soft, minimally tender, much improved from yesterday. WBC normal. Advance to clear liquids, continue IV antibiotics. Surgery will follow. Subjective Patient feeling better than yesterday. Reports pain a 2/10. No nausea/vomiting. Passing small amount of flatus. Still feels a bit bloated. Physical Exam Physical Exam: awake,alert, no distress Respiratory: normal respiratory effort Gastrointestinal (Abdomen): Inspection/Auscultation: + abdomen distended (mild) Percussion/Palpation: + abdomen tender (discomfort across lower abdomen) and abdomen soft Results & Data Vital Signs (Past 12 Hours) Vital Signs Temp Pulse Pulse Resp BP BP Pulse Ox 11/25/22 07:28 36.6 C 14 134/83 95 11/24/22 23:43 11/24/22 23:00 11/24/22 23:04 37 C 70 20 146/89 H 96 11/24/22 23:00 37 C 70 20 146/89 H 96 11/24/22 22:00 77 18 121/66 96 O2 Del Method 11/25/22 07:28 Room Air 11/24/22 23:43 Room Air 11/24/22 23:00 Room Air 11/24/22 23:04 Room Air 11/24/22 23:00 Room Air 11/24/22 22:00 Room Air PG Care Time/CCT Total # of Minutes Spent Total Time Spent with Patient: Total time spent is greater than 50% in coordination of care (as documented) at patient's floor/unit and/or counseling patient: Coding Level of Care Code 55632 SUB INP/OBS CARE 06/09MIN Diagnoses Diverticulitis K57.92
[2022-11-25] MEDS: cefTRIAXone SODIUM 2,000 MG in DEXTROSE 5% 50 ML IV SCH (17:53)
[2022-11-25] MEDS: ENOXAPARIN INJ 40 MG/0.4 ML SYR SQ SCH (21:14)
--- NOTE | 2022-11-25 22:28 | Hospitalist Progress Note ---
Date of Service November 25, 2022 Assessment & Plan (1) Diverticulitis of colon with perforation: Plan: 3yoMwith PMH of factor V Leiden, history of DVT/PE, chronically anticoagulated on warfarin presented to ER with complaint of abdominal pain, tactile fevers, anorexia x 3 days and was admitted with a perforated diverticulitis picture. Surgery advised conservative management. CT abdomen and pelvis: Acute sigmoid diverticulitis. Foci of intraperitoneal free air indicating perforation. There is evidence of peritonitis with a small volume of abdominopelvic ascites and peritoneal thickening/enhancement in the pelvis. No organized/drainable fluid collection is identified at this time. Mild wall thickening and hyperemia is seen throughout the small bowel and also involving the appendix. This is likely secondary to peritonitis. The bladder wall appears thickened. Continue IV Rocephin, IV Flagyl, fluids NPO IV Tylenol, IV morphine as needed pain General surgery-appreciate recs. Recommends conservative measures currently with IV antibiotics and no current indication for surgery (2) Factor V Leiden: (3) History of pulmonary embolus (PE): Plan: History DVT in 2009, 2014. History PE in 2009. Chronically anticoagulated on warfarin INR: 1.2. Patient has not taken warfarin couple days INR in a.m. Hold warfarin. Bridge with Lovenox DVT Prophylaxis Lovenox SQ Full Code as per discussion with pt Follows with Dr Chand for routine care Pt was seen and care coordinated with Dr Chairez. See addendum I spent a total of 75 minutes reviewing notes, outpatient records, labs, medication, coordinating, documenting and providing care for this patient excluding time spent in the performance of separately billed services. Admission and Anticipated Discharge Date Admission Date: November 24, 2022 Subjective States that he feels better. still having abd pain but states overall feeling better. Concerned about being constipated. Review of Systems Review of Systems: All systems reviewed & are unremarkable except as noted in Subjective Physical Exam Physical Exam: General: Alert, oriented. No acute distress Skin: No noted rashes or bruises Psych: Appropriate mood and affect Neuro: No gross deficits HEENT: NC/AT CV: RRR Resp: Breath sounds clear bilaterally, no increased effort of breathing. No crackles/rhonchi/rales. Abdomen: Soft,tender, nondistended. No guarding. No organomegaly appreciated. Extremities: No edema in lower extremities bilaterally. Results & Data Results & Data Vital Signs (Past 12 Hours) Vital Signs Temp Pulse Resp BP Pulse Ox O2 Del Method 11/25/22 22:01 37.0 C 68 16 145/84 H 97 Room Air 11/25/22 15:32 36.7 C 68 14 122/81 97 Room Air
[2022-11-26] MEDS: metroNIDAZOLE 500 MG/100 ML BAG IV SCH ×3 (01:47→18:32)
[2022-11-26 08:43] LABS: Basophils # (auto) 0.01 K/uL (0-0.2); Basophils % (auto) 0.1 %; Eosinophils # (auto) 0.13 K/uL (0-0.50); Eosinophils % (auto) 1.7 %; Hematocrit (blood only) 36.7 % (42.0-52.0); Hemoglobin 12.5 g/dl (14.0-18.0); Immature Granulocytes # (auto) 0.02 K/uL (0.01-0.20); Immature Granulocytes % (auto) 0.3 %; Lymphocytes # (auto) 1.37 K/uL (1.2-3.4); Lymphocytes % (auto) 18.4 %; Mean Corpuscular Hemoglobin 31.6 pg (25.0-34.0); Mean Corpuscular Hgb Conc 34.1 g/dL (32.0-36.0); Mean Corpuscular Volume 92.7 fL (80.0-100.0); Mean Platelet Volume 9.4 fL (9.4-12.4); Monocytes # (auto) 0.76 K/uL (0.11-0.59); Monocytes % (auto) 10.2 %; Neutrophils # (auto) 5.17 K/uL (1.40-6.50); Neutrophils % (auto) 69.3 %; Platelet Count 189 K/uL (130-400); RDW Coefficient of Variation 11.9 % (11.5-14.5); RDW Standard Deviation 41.1 fL (36.4-46.3); Red Blood Count 3.96 M/uL (4.70-6.10); White Blood Count 7.46 K/ul (4.8-10.8)
[2022-11-26 09:00] LABS: BUN Creatinine Ratio 16.5 (10-20); Calcium 8.2 mg/dl (8.6-10.3); Est GFR (African American) 102.2 ml/min; Est GFR (Non-African American) 88.1 ml/min; Globulin 2.9 gm/dl (2.5-4.0); Total Protein 5.9 gm/dl (6.0-8.3)
--- NOTE | 2022-11-26 13:46 | Surgery Progress Note ---
Date of Service November 26, 2022 Assessment & Plan (1) Diverticulitis: Plan: Improving diverticulitis with contained perforation Slowly advance to low fiber diet as tolerated We will transition to oral antibiotics as outpatient, would recommend 14 days treatment May follow-up in general surgery clinic in 10 to 14 days Surgery will follow, Dr. Daigle covering over the weekend, potential discharge tomorrow Admission and Anticipated Discharge Date Admission Date: November 24, 2022 Subjective Diverticulitis with contained perforation, continues to improve with antibiotics, tolerated liquids. Having loose bowel movements. Still little sore. Physical Exam Constitutional: WD/WN, vitals as above Gastrointestinal (Abdomen): Percussion/Palpation: + abdomen tender (Minimal tenderness to palpation in left lower quadrant, improving) and abdomen soft; no guarding and abdomen not rigid Results & Data Vital Signs (Past 12 Hours) Vital Signs Temp Pulse Resp BP Pulse Ox O2 Del Method 11/26/22 07:09 36.7 C 66 16 127/80 95 Room Air Laboratory Results Laboratory Results - last 24 hr 11/26/22 11/26/22 08:15 08:15 WBC 7.46 RBC 3.96 L Hgb 12.5 L Hct 36.7 L MCV 92.7 MCH 31.6 MCHC 34.1 RDW Std Deviation 41.1 RDW Coeff of Calista 11.9 Plt Count 189 MPV 9.4 Immature Gran % (Auto) 0.3 Neut % (Auto) 69.3 Lymph % (Auto) 18.4 [place] % (Auto) 10.2 Eos % (Auto) 1.7 Baso % (Auto) 0.1 Neut # (Auto) 5.17 Lymph # (Auto) 1.37 [place] # (Auto) 0.76 H Eos # (Auto) 0.13 Baso # (Auto) 0.01 Immature Gran # (Auto) 0.02 Sodium 137 Potassium 4.0 Chloride 105 Carbon Dioxide 29 Anion Gap 3 BUN 16 Creatinine 0.97 Est Cr Clr Drug Dosing 93.0 Est GFR ( Amer) 102.2 Est GFR (Non-Af Amer) 88.1 BUN/Creatinine Ratio 16.5 Glucose 107 H Calcium 8.2 L Total Bilirubin 1.0 AST 12 L ALT 11 Alkaline Phosphatase 44 Total Protein 5.9 L Albumin 3.0 L Globulin 2.9 Albumin/Globulin Ratio 1.0 PG Care Time/CCT Total # of Minutes Spent Total Time Spent with Patient: Total time spent is greater than 50% in coordination of care (as documented) at patient's floor/unit and/or counseling patient: Coding Level of Care Code 38018 SUB INP/OBS CARE Diagnoses Diverticulitis K57.92
--- NOTE | 2022-11-26 17:11 | Hospitalist Progress Note ---
Date of Service November 26, 2022 Assessment & Plan (1) Diverticulitis of colon with perforation: Plan: 3yoMwith PMH of factor V Leiden, history of DVT/PE, chronically anticoagulated on warfarin presented to ER with complaint of abdominal pain, tactile fevers, anorexia x 3 days and was admitted with a perforated diverticulitis picture. Surgery advised conservative management. CT abdomen and pelvis: Acute sigmoid diverticulitis. Foci of intraperitoneal free air indicating perforation. There is evidence of peritonitis with a small volume of abdominopelvic ascites and peritoneal thickening/enhancement in the pelvis. No organized/drainable fluid collection is identified at this time. Mild wall thickening and hyperemia is seen throughout the small bowel and also involving the appendix. This is likely secondary to peritonitis. The bladder wall appears thickened. Continue IV Rocephin, IV Flagyl, fluids NPO IV Tylenol, IV morphine as needed pain General surgery-appreciate recs. Recommends conservative measures currently with IV antibiotics and no current indication for surgery (2) Factor V Leiden: (3) History of pulmonary embolus (PE): Plan: History DVT in 2009, 2014. History PE in 2009. Chronically anticoagulated on warfarin INR: 1.2. Patient has not taken warfarin couple days INR in a.m. Hold warfarin. Bridge with Lovenox DVT Prophylaxis Lovenox SQ Full Code as per discussion with pt Follows with Dr Chand for routine care Pt was seen and care coordinated with Dr Chairez. See addendum I spent a total of 75 minutes reviewing notes, outpatient records, labs, medication, coordinating, documenting and providing care for this patient excluding time spent in the performance of separately billed services. Admission and Anticipated Discharge Date Admission Date: November 24, 2022 Subjective Pt notes that he has started having BMs now that he is advancing his diet. Soft but not watery. Slight abdominal pain. Denies fevers, sweats. Pain now 3/10, down from 8/10 on admission. Review of Systems Review of Systems: All systems reviewed & are unremarkable except as noted in Subjective Physical Exam Physical Exam: General: Alert, oriented. No acute distress Skin: No noted rashes or bruises Psych: Appropriate mood and affect Neuro: No gross deficits HEENT: NC/AT CV: RRR Resp: Breath sounds clear bilaterally, no increased effort of breathing. No crackles/rhonchi/rales. Abdomen: Soft,tender, nondistended. Extremities: No edema in lower extremities bilaterally. Results & Data Results & Data Vital Signs (Past 12 Hours) Vital Signs Temp Pulse Resp BP Pulse Ox O2 Del Method 11/26/22 15:27 36.9 C 68 14 146/85 H 98 Room Air 11/26/22 07:09 36.7 C 66 16 127/80 95 Room Air
[2022-11-26] MEDS: cefTRIAXone SODIUM 2,000 MG in DEXTROSE 5% 50 ML IV SCH (17:48)
[2022-11-26] MEDS: ENOXAPARIN INJ 40 MG/0.4 ML SYR SQ SCH (21:50)
[2022-11-27] MEDS: metroNIDAZOLE 500 MG/100 ML BAG IV SCH ×3 (01:44→14:33)
[2022-11-27 06:54] LABS: Basophils # (auto) 0.01 K/uL (0-0.2); Basophils % (auto) 0.1 %; Eosinophils % (auto) 2.5 %; Hematocrit (blood only) 39.5 % (42.0-52.0); Hemoglobin 13.9 g/dl (14.0-18.0); Immature Granulocytes # (auto) 0.03 K/uL (0.01-0.20); Immature Granulocytes % (auto) 0.4 %; Lymphocytes # (auto) 1.77 K/uL (1.2-3.4); Lymphocytes % (auto) 22.5 %; Mean Corpuscular Hemoglobin 31.7 pg (25.0-34.0); Mean Corpuscular Hgb Conc 35.2 g/dL (32.0-36.0); Mean Platelet Volume 9.4 fL (9.4-12.4); Monocytes % (auto) 10.2 %; Neutrophils # (auto) 5.04 K/uL (1.40-6.50); Neutrophils % (auto) 64.3 %; Platelet Count 222 K/uL (130-400); RDW Coefficient of Variation 11.6 % (11.5-14.5); RDW Standard Deviation 38.5 fL (36.4-46.3); Red Blood Count 4.39 M/uL (4.70-6.10); White Blood Count 7.85 K/ul (4.8-10.8)
[2022-11-27 07:08] LABS: Albumin Globulin Ratio 1.1 (0.9-2); Albumin Level 3.3 gm/dl (3.4-5.0); BUN Creatinine Ratio 11.1 (10-20); Bilirubin,Total 0.9 mg/dl (0.2-1.0); Calcium 8.5 mg/dl (8.6-10.3); Creatinine Clr Calc Pharmacy 91.1 ml/min; Est GFR (African American) 99.7 ml/min; Globulin 3.1 gm/dl (2.5-4.0); Potassium 3.8 mmol/L (3.5-5.1); Total Protein 6.4 gm/dl (6.0-8.3)
--- NOTE | 2022-11-27 11:36 | Surgery Progress Note ---
I saw and examined this patient with the surgical PA to devise further plan. I agree with this plan. Date of Service November 27, 2022 Assessment & Plan (1) Diverticulitis: Plan: 11/27/2022 52-year-old male with improving diverticulitis with contained perforation. WBC within normal limits. He is tolerating a low fiber diet. Recommend 2 weeks of outpatient antibiotics- antibiotics per primary team. He is to follow-up with Dr. Cruz in general surgery clinic in 2 weeks after discharge. Ok for discharge today from gen surg standpoint. Patient seen and examined with Dr. Daigle. 11/26/2022 Improving diverticulitis with contained perforation Slowly advance to low fiber diet as tolerated We will transition to oral antibiotics as outpatient, would recommend 14 days treatment May follow-up in general surgery clinic in 10 to 14 days Surgery will follow, Dr. Daigle covering over the weekend, potential discharge tomorrow Admission and Anticipated Discharge Date Admission Date: November 24, 2022 Subjective Silvino is resting comfortably in room. He reports that his pain is significantly improved- still some discomfort in lower abdomen. He denies any nausea or vomiting. He is tolerating a low fiber diet. Review of Systems Constitutional: no fever and no chills Gastrointestinal: + abdominal pain (significantly improved since admission); no nausea and no vomiting Physical Exam Constitutional: WD/WN, vitals as above Gastrointestinal (Abdomen): Percussion/Palpation: + abdomen tender (Minimal tenderness to palpation in left lower quadrant, improving) and abdomen soft; no guarding and abdomen not rigid Results & Data Vital Signs (Past 12 Hours) Vital Signs Temp Pulse Resp BP Pulse Ox O2 Del Method 11/27/22 07:29 36.6 C 69 16 132/84 98 Room Air 11/27/22 01:49 37.1 C 128/72 PG Care Time/CCT Total # of Minutes Spent Total Time Spent with Patient: Total time spent is greater than 50% in coordination of care (as documented) at patient's floor/unit and/or counseling patient: Coding Level of Care Code 67340 SUB INP/OBS CARE 25MIN Diagnoses Diverticulitis K57.92
[2022-11-27] MEDS ORDERED: CEFDINIR 300 MG CAP PO STA (14:35)
[2022-11-27] MEDS ORDERED: metroNIDAZOLE 500 MG TAB PO STA (14:35)
--- NOTE | 2022-11-27 14:53 | Discharge Summary ---
Date of Service November 27, 2022 Admission HPI Per Admitting Provider Patient is a 52-year-old male with PMH of factor V Leiden, history of DVT/PE, chronically anticoagulated on warfarin presented to ER with complaint of abdominal pain x 3 days. Patient states 3 days ago started with some abdominal bloating which progressed to right lower quadrant abdominal pain with varying intensity. He reports constipation for the past several days. Past 3 days has taken Miralax with only small hard BMs past. Denies nausea, vomiting. Does have decreased appetite and has not been eating or drinking well. Has also been having intermittent episodes of sweats and chills. Has not taken his tem perature at home. No history of diverticulitis in past. History of colonoscopy in the past showing diverticulosis. History of hernia repair 2021. Denies melena, hematochezia PADRON, dizziness, syncope, CP, SOB, cough, rhinorrhea, weakness, extremity edema, rashes, dysuria, hematuria, urinary frequency, urinary retention. Admission Exam Per Admitting Provider General: no distress, WDWN Head: normocephalic, atraumatic Eyes: conjunctiva non-injected, anicteric ENT: normal inspection external ears, nose, mucous membranes moist Neck: supple, trachea midline Lungs: clear, no respiratory distress, no wheezing/rhonchi/rales CV: RRR, no murmur, no pretibial edema Abd: normal BS, soft, +tenderness to palpation RLQ, LLQ Ext: no cyanosis, no calf tenderness Neuro: A&O x 3, no focal deficits noted, normal affect Skin: warm, dry Principal Diagnosis Acute diverticulitis Discharge Exam General: Alert, oriented. No acute distress Skin: No noted rashes or bruises Psych: Appropriate mood and affect Neuro: No gross deficits HEENT: NC/AT CV: RRR Resp: Breath sounds clear bilaterally, no increased effort of breathing. No crackles/rhonchi/rales. Abdomen: Soft, tender, nondistended. Extremities: No edema in lower extremities bilaterally. Discharge Data Allergies Allergy/AdvReac Type Severity Reaction Status Date / Time Penicillins Allergy Unknown CHILDHOOD Verified 11/24/22 16:10 ALLERGY-UNKNOWN Consultations 11/24/22 17:44 Consult General Surgery Stat 11/24/22 17:59 ED Decision to Admit Stat 11/24/22 21:24 Consult General Surgery Routine Ordered Studies 11/24/22 15:35 CT Abd and Pelvis [CT abd pelvis IV con only] Stat Hospital Course (1) Diverticulitis of colon with perforation: 52yoM with PMHx of factor V Leiden, history of DVT/PE, chronically anticoagulated on warfarin hospitalized with acute diverticulitis and contained perforation, peritonitis. CT abdomen and pelvis noted "Acute sigmoid diverticulitis. Foci of intraperit wood free air indicating perforation. There is evidence of peritonitis with a small volume of abdominopelvic ascites and peritoneal thickening/enhancement in the pelvis. No organized/drainable fluid collection is identified at this time. Mild wall thickening and hyperemia is seen throughout the small bowel and also involving the appendix. This is likely secondary to peritonitis. The bladder wall appears thickened." Treated with IV rocephin and IV Flagyl, discharged with PO cefdinir and Flagyl for an additional 2 weeks. PCP followup in 1 week recommended and 2 week follow up with General Surgery. (2) Factor V Leiden: (3) History of pulmonary embolus (PE): History DVT in 2009, 2014. History PE in 2009. Chronically anticoagulated on warfarin INR: 1.2 on admission. Patient had not taken coumadin for a few days. Bridged with Lovenox, discharged with Lovenox bridge, INR on discharge of 1.2. Pt advised to restart his home warfarin while on Lovenox bridge with close follow up with the coumadin clinic. Total Time Total Time Spent Total Time Spent (In Minutes): >30 minutes Discharge Plan Discharge Items Patient Disposition: Home - Self-Care Reason For Visit: DIVERTICULITIS Discharge Diagnosis: Acute diverticulitis Condition on Discharge: Fair Activity: Per Instructions section Non-emergency contact: Primary Care Provider and Surgeon Call non-emergency contact if: you have any medication questions, your symptoms worsen, your pain is not controlled and you have a fever Follow-up/Referrals: Sonny Cruz DO, DIANA [Physician] - (Please follow up in clinic within 2- 3 weeks for check up) Ivy Chand DO [Primary Care Provider] - Diet: Low Fiber and Other - See Diet Comment Diet Comment: Advance diet as tolerated Addtl Attending Provider Instructions: You were admitted with acute diverticulitis and there was concern for microperforation and peritonitis. You were seen by the general surgery specialists and they recommended conservative management with IV antibiotics and bowel rest. You were treated with the IV medication Ceftriaxone and Metronidazole while in the hospital. Your symptoms improved and you have been tolerating the advancement of your diet. You are being discharged with 14 days of oral cefdinir (oral equivalent of IV ceftriaxone) and oral metronidazole. Please take it as prescribed We had you on lovenox while you were here for anticoagulation. We will resume your home warfarin. We discharged you with lovenox to use at home as bridging while you restart your warfarin and get back to therapeutic levels. Please keep close follow up with your coumadin clinic for this. Please keep follow up with General Surgery as scheduled in 2 weeks. Please also keep follow up with your primary care provider as scheduled preferably within the next week. Pending Studies at Discharge: No Stand-Alone Forms: My [facility], Smoking Cessation Medications and DC Order Prescriptions: New enoxaparin [Lovenox] 40 mg/0.4 mL Syringe 40 mg subcut BID Qty: 4 0RF cefdinir 300 mg capsule 300 mg PO BID 14 Days Qty: 28 0RF metronidazole 500 mg tablet 500 mg PO TID 14 Days Qty: 42 0RF Continued warfarin 5 mg tablet 5 mg PO DAILY Discharge Orders: Discharge Order (Routine); Ordered 11/27/22 Ordered By: Kenzie Corea/Other Patient Handouts: Diverticulitis Dc Admission Data Admit Date/Time: 11/24/22 18:37 Attending Provider: Kenzie Kamara Admit Provider: Mukesh Chairez Primary Care Provider: Ivy Chand Other Providers: Sonny Cruz ; Mukesh Chairez Other Interventions: Discharge Summary Assessment (RN) Last Done: 11/27/22 12:53
[2022-11-27 16:18] LABS: INR 1.2 (0.9-1.1); Prothrombin Time 13.1 Seconds (9.0-12.0)
== END 2022-11-27 16:17 | disposition home or self-care (01) | DRG 391 ==
LOC: ED 13:33 → EDINP 18:37 → SUATTDRO 18:37 → 3N 22:29

== ENCOUNTER 2023-06-29 15:23 | Inpatient (IN) ==
[2023-06-29 17:00] LABS: Basophils # (auto) 0.03 K/uL (0.00-0.20); Basophils % (auto) 0.2 %; Eosinophils # (auto) 0.05 K/uL (0.00-0.50); Eosinophils % (auto) 0.4 %; Hematocrit (blood only) 42.4 % (42.0-52.0); Hemoglobin 14.7 g/dl (14.0-18.0); Immature Granulocytes # (auto) 0.07 K/uL (0.01-0.20); Immature Granulocytes % (auto) 0.6 %; Lymphocytes # (auto) 1.55 K/uL (1.20-3.40); Lymphocytes % (auto) 12.3 %; Mean Corpuscular Hemoglobin 30.8 pg (25.0-34.0); Mean Corpuscular Hgb Conc 34.7 g/dL (32.0-36.0); Mean Corpuscular Volume 88.7 fL (80.0-100.0); Mean Platelet Volume 8.9 fL (9.4-12.4); Monocytes # (auto) 1.21 K/uL (0.11-0.59); Monocytes % (auto) 9.6 %; Neutrophils # (auto) 9.67 K/uL (1.40-6.50); Neutrophils % (auto) 76.9 %; Platelet Count 333 K/uL (130-400); RDW Coefficient of Variation 11.9 % (11.5-14.5); RDW Standard Deviation 38.6 fL (36.4-46.3); Red Blood Count 4.78 M/uL (4.70-6.10); White Blood Count 12.58 K/ul (4.8-10.8)
[2023-06-29 17:09] LABS: Albumin Level 3.6 gm/dl (3.4-5.0); BUN Creatinine Ratio 15.6 (10-20); Bilirubin,Total 0.5 mg/dl (0.2-1.0); Calcium 8.9 mg/dl (8.6-10.3); Est GFR (African American) 88.1 ml/min; Globulin 3.5 gm/dl (2.5-4.0); Potassium 4.1 mmol/L (3.5-5.1); Total Protein 7.1 gm/dl (6.0-8.3)
[2023-06-29] MEDS: SODIUM CHLORIDE 0.9% 1,000 ML IV ONE (19:35)
[2023-06-29] MEDS: cefOXitin 2,000 MG/60 ML BAG IV STA (19:39)
[2023-06-29] MEDS: metroNIDAZOLE 500 MG/100 ML BAG IV STA (20:07)
--- NOTE | 2023-06-29 21:09 | History & Physical Report ---
Date of Service June 29, 2023 Assessment & Plan (1) Colonic diverticular abscess: Plan: 53-year-old male with past medical history significant for chronic rhinitis, pulmonary embolism, DVT, heterozygous factor V Leiden mutation, history of diverticulitis presents with ongoing diverticulitis since 1 week and CAT scan done today shows diverticular abscess. Patient states having symptoms since last 1 week. Started antibiotics last Tuesday Cipro and Flagyl. In the weekends had a fever. He cannot sleep on the left side because the pain. He went to work today and pain was about 5/10 in severity. Currently resting his pain is minimal. Appetite is down. Having normal bowel movements. Denies any blood in the stools. Also had some cold symptoms but that got improved. Has mild runny nose. Denies headache. Has some dizziness. Vision is okay. No sore throat. No cough. No chest pains. No shortness of breath. Currently resting comfortably and hemodynamically stable. Colonic diverticular abscess History of diverticulitis in November 2022 Colonoscopy 09/01/2022 shows diverticulosis in sigmoid colon. One 5 mm polyp 20 cm proximal to the anus, pathology showing hyperplastic polyp with focal sessile serrated features. Currently having symptoms last 1 week and treated with Cipro and Flagyl CT scan done on 06/27/2023: 1. Colonic diverticulosis with findings concerning for acute diverticulitis in the sigmoid region. 2. Walled-off, irregularly-shaped, peripherally enhancing air and fluid collection in the pelvis measuring approximately 5 x 0 x 6.0 x 4.8 cm, with minimal surrounding inflammatory changes. Findings most likely consistent with an abscess. Possibly arising from adjacent sigmoid diverticulitis. 3. Additional air and fluid collection with no significant surrounding enhancement draping along the anterior margin of the abscess possibly a portion of bowel. 4. A few small bowel loops are abnormally dilated measuring up to 4 cm in diameter with trace fecalization concerning for possible developing obstruction. 5. Minimal free fluid in the dependent portion of the pelvis. Plan for IR drainage in a.m. IV antibiotics cefoxitin and Flagyl N.p.o., IV fluids, IV morphine as needed History of heterozygous factor V Leiden mutation History of PE in 2009 as per patient History of DVT around 2015 as per patient On Coumadin which will be held for procedures Follow PT/INR DVT prophylaxis SCDs for now Restart Coumadin as soon as possible Disposition Medical floor Full code History of Present Illness Chief Complaint: Diverticular abscess Primary Care Provider: Ivy Chand DO 53-year-old male with past medical history significant for chronic rhinitis, pulmonary embolism, DVT, heterozygous factor V Leiden mutation, history of diverticulitis presents with ongoing diverticulitis since 1 week and CAT scan done today shows diverticular abscess. Patient states having symptoms since last 1 week. Started antibiotics last Tuesday Cipro and Flagyl. In the weekends had a fever. He cannot sleep on the left side because the pain. He went to work today and pain was about 5/10 in severity. Currently resting his pain is minimal. Appetite is down. Having normal bowel movements. Denies any blood in the stools. Also had some cold symptoms but that got improved. Has mild runny nose. Denies headache. Has some dizziness. Vision is okay. No sore throat. No cough. No chest pains. No shortness of breath. Currently resting comfortably and hemodynamically stable. Past medical history. As mentioned above. Past surgical history. Colonoscopy. Dental surgery. Laparoscopic inguinal hernia repair. Social history. . Former smoker. Smoked 0.1 pack a day for 10 years. Alcohol 5 standard drinks of alcohol per week. No drug use. Family history. Father had pancreatic cancer. Allergies Allergy/AdvReac Type Severity Reaction Status Date / Time Penicillins Allergy Unknown CHILDHOOD Verified 06/29/23 19:56 ALLERGY-UNKNOWN Home Medications Medication Instructions Recorded Confirmed Type warfarin 5 mg tablet 2.5 mg PO QAM 11/24/22 06/29/23 History ciprofloxacin HCl 500 mg tablet 500 mg PO AMHS 06/29/23 06/29/23 History metronidazole 500 mg tablet 500 mg PO TID 06/29/23 06/29/23 History Past Med/Surg History Medical History (Updated 06/29/23 @ 21:03 by Robby Shelley MD) History of pulmonary embolus (PE) Diverticulitis of colon with perforation Factor V Leiden Deep vein thrombosis Surgical History (Updated 12/10/22 @ 09:10 by Amber Floyd RN) H/O hernia repair 11/2021 History of colonoscopy 09/01/22 Family History (Updated 12/10/22 @ 09:12 by Amber Floyd RN) Sister Breast cancer Father Cancer Hypertension Mother Clotting disorder Hypertension Other Family history of factor V Leiden mutation Family history of pancreatic cancer Social History (Updated 12/10/22 @ 09:14 by Amber Floyd RN) Smoking Status: Former smoker Tobacco Type: Cigarettes Smoking End Date: 20years ago, only smoked socially when drinking; Second Hand Exposure: No; Do You Dip or Chew Tobacco: No; Tobacco Cessation Education Requested by Patient: No Hx Alcohol Use: Yes Alcohol type: beer Alcohol Intake Frequency: 4 or More x per/Week Alcohol Intake Frequency Comment: 1-2/day Hx Substance Use: No Preferred Language: Korean Communication Ability: Effective Paint Roller Winder Required: No Beliefs That Will Affect Care: None marital status: Current Living Situation: Spouse current occupational status: employed 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 Head- atraumatic Eyes- PERRL. ENT- oropharynx clear Neck- supple, no JVD. Lungs- clear to auscultation no wheezing or crackles. Heart- regular rhythm; no murmur, no gallop. Abdomen- normal bowel sounds, soft, LLQ mild tenderness, no masses, no distension. Extremities- no pretibial edema, no erythema seen. Neuro- alert, oriented x 3; PERRL, EOMI; no facial palsy; no dysarthria; moves extremities. Skin- warm & dry Results & Data Results & Data Vital Signs (Past 12 Hours) Vital Signs Temp Pulse Pulse Resp BP BP Pulse Ox 06/29/23 18:51 84 18 148/106 H 98 06/29/23 15:51 37.0 C 85 19 137/90 98 O2 Del Method 06/29/23 18:51 Room Air 06/29/23 15:51 Room Air Diagnostic Findings Laboratory Results WBC 12.58 K/ul (4.8-10.8) H 06/29/23 16:16 RBC 4.78 M/uL (4.70-6.10) 06/29/23 16:16 Hgb 14.7 g/dl (14.0-18.0) 06/29/23 16:16 Hct 42.4 % (42.0-52.0) 06/29/23 16:16 MCV 88.7 fL (80.0-100.0) 06/29/23 16:16 MCH 30.8 pg (25.0-34.0) 06/29/23 16:16 MCHC 34.7 g/dL (32.0-36.0) 06/29/23 16:16 RDW Std Deviation 38.6 fL (36.4-46.3) 06/29/23 16:16 RDW Coeff of Calista 11.9 % (11.5-14.5) 06/29/23 16:16 Plt Count 333 K/uL (130-400) 06/29/23 16:16 MPV 8.9 fL (9.4-12.4) L 06/29/23 16:16 Immature Gran % (Auto) 0.6 % 06/29/23 16:16 Neut % (Auto) 76.9 % 06/29/23 16:16 Lymph % (Auto) 12.3 % 06/29/23 16:16 [place] % (Auto) 9.6 % 06/29/23 16:16 Eos % (Auto) 0.4 % 06/29/23 16:16 Baso % (Auto) 0.2 % 06/29/23 16:16 Neut # (Auto) 9.67 K/uL (1.40-6.50) H 06/29/23 16:16 Lymph # (Auto) 1.55 K/uL (1.20-3.40) 06/29/23 16:16 [place] # (Auto) 1.21 K/uL (0.11-0.59) H 06/29/23 16:16 Eos # (Auto) 0.05 K/uL (0.00-0.50) 06/29/23 16:16 Baso # (Auto) 0.03 K/uL (0.00-0.20) 06/29/23 16:16 Immature Gran # (Auto) 0.07 K/uL (0.01-0.20) 06/29/23 16:16 Sodium 135 mmol/L (136-145) L 06/29/23 16:16 Potassium 4.1 mmol/L (3.5-5.1) 06/29/23 16:16 Chloride 99 mmol/L (98-107) 06/29/23 16:16 Carbon Dioxide 29 mmol/L (21-32) 06/29/23 16:16 Anion Gap 7 (3-11) 06/29/23 16:16 BUN 17 mg/dl (6-23) 06/29/23 16:16 Creatinine 1.09 mg/dl (0.6-1.4) 06/29/23 16:16 Est Cr Clr Drug Dosing 81.0 ml/min 06/29/23 16:16 Est GFR ( Amer) 88.1 ml/min 06/29/23 16:16 Est GFR (Non-Af Amer) 76.0 ml/min 06/29/23 16:16 BUN/Creatinine Ratio 15.6 (10-20) 06/29/23 16:16 Glucose 101 mg/dl (70-99(Fasting)) H 06/29/23 16:16 Calcium 8.9 mg/dl (8.6-10.3) 06/29/23 16:16 Total Bilirubin 0.5 mg/dl (0.2-1.0) 06/29/23 16:16 AST 22 U/L (13-39) 06/29/23 16:16 ALT 16 U/L (7-52) 06/29/23 16:16 Alkaline Phosphatase 62 U/L (34-104) 06/29/23 16:16 Total Protein 7.1 gm/dl (6.0-8.3) 06/29/23 16:16 Albumin 3.6 gm/dl (3.4-5.0) 06/29/23 16:16 Globulin 3.5 gm/dl (2.5-4.0) 06/29/23 16:16 Albumin/Globulin Ratio 1.0 (0.9-2) 06/29/23 16:16 Lipase 40 U/L (11-82) 06/29/23 16:16 Code Status & VTE Plan VTE Prophylaxis Plan VTE Prophylaxis will be ordered: Yes
[2023-06-29 21:38] LABS: INR 2.4 (0.9-1.1); Prothrombin Time 24.6 Seconds (9.0-12.0)
[2023-06-29 21:39] LABS: Appearance Urine Clear (Clear); Bilirubin Urine Negative (Negative); Blood Urine Negative (Negative); Color Urine Yellow; Glucose Urine UA Negative (Negative); Ketones Urine 1+ (Negative); Leukocyte Esterase Urine Negative (Negative); Nitrite Urine Negative (Negative); Protein Urine Negative (Negative); Specific Gravity Urine 1.022 (1.000-1.030); Urobilinogen Urine Negative (Negative); pH Urine 6.5 (4.5-7.5)
--- NOTE | 2023-06-29 22:12 | Emergency Department Note ---
Impression & Plan Colonic diverticular abscess ED Provider Note CHIEF COMPLAINT: sent in by doctor, Abnormal CAT scan HISTORY OF PRESENT ILLNESS: This 53-year-old male patient with past medical history of factor V Leiden, PE, bowel perforation presents to the emergency department recently diagnosed with diverticulitis and placed on Cipro and Flagyl. An outpatient CT scan was performed and results came in today revealing a 5 cm abscess in the sigmoid region. He is starting to feel much better at this point. The patient states he has been taking all of his medications. He has likely had some low-grade fevers. He is starting to feel much better at this point. REVIEW OF SYSTEMS: A review of systems was performed with positives and pertinent negatives listed in the history of present illness. 10 systems were reviewed and are otherwise negative. ALLERGIES: see below MEDICATIONS: see below PMH: see below SOCIAL HISTORY: see below DDx: diverticulitis, perforated diverticulitis with abscess, kidney stone, UTI among others. PHYSICAL EXAM: Vital signs reviewed. General: Well-appearing 53-year-old female, in no significant distress. HEENT: No scleral icterus, PERRLA, neck supple. Atraumatic. Cardiovascular: Regular rate and rhythm, no extra sounds. Pulmonary: Clear to auscultation bilaterally, normal work of breathing. Abdomen: Soft, mild tenderness to LLQ, nondistended, positive bowel sounds. Musculoskeletal: Atraumatic, no peripheral edema. Neurologic: Patient awake alert and oriented x 3, speech is clear Skin: Warm, dry, no rash EMERGENCY DEPARTMENT COURSE/MDM: this patient was evaluated and appeared to be in no significant distress. IV access was obtained and laboratory work was drawn. Patient's outpatient CT images were reviewed. There is a 5 cm abscess near the sigmoid colon. I did speak with Dr. Castro of radiology who states interventional radiology will be available during daylight hours and this should be amenable to intervention. Patient's case was discussed with the hospitalist service to evaluate the patient for admission and further management. He does have an allergy to penicillin, therefore was given Mefoxin and Flagyl. Patient and family were informed of the findings and plan and agreed. MONITORING: An order for cardiac monitoring was placed and the patient is noted to be in a normal sinus rhythm at 80 beats per minute. RADIOLOGY: Per outpatient CT imaging 5 cm abscess in the sigmoid. EKG: To my interpretation reveals normal sinus rhythm at [address] segments. Poor quality baseline for interpretation. QTc is 431. Previous septal infarct. DISPOSITION: Admission Past Med/Surg History Medical History History of pulmonary embolus (PE) Diverticulitis of colon with perforation Factor V Leiden Deep vein thrombosis Surgical History H/O hernia repair 11/2021 History of colonoscopy 09/01/22 Family History Sister Breast cancer Father Cancer Hypertension Mother Clotting disorder Hypertension Other Family history of factor V Leiden mutation Family history of pancreatic cancer Social History Smoking Status: Former smoker Tobacco Type: Cigarettes Second Hand Exposure: No; Do You Dip or Chew Tobacco: No; Hx Alcohol Use: Yes Alcohol type: beer Alcohol Intake Frequency: 4 or More x per/Week Alcohol Intake Frequency Comment: 1-2/day Hx Substance Use: No Preferred Language: Hungarian Communication Ability: Effective Event Planning Manager Required: No Beliefs That Will Affect Care: None marital status: Current Living Situation: Spouse current occupational status: employed 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 How many Children do You have: 2 Feels Safe at Home: Yes Diet: regular during the past year weight has: remained stable Assistive Devices: Glasses Allergies Allergies Allergy/AdvReac Type Severity Reaction Status Date / Time Penicillins Allergy Unknown CHILDHOOD Verified 06/29/23 19:56 ALLERGY-UNKNOWN Home Meds Previous Rx's Medication Instructions Recorded ciprofloxacin HCl 500 mg tablet 500 mg PO AMHS 21 days #42 tabs 07/02/23 lactobacillus combination no.4 3 3,000 mmu cells PO DAILY #30 caps 07/02/23 billion cell capsule (Probiotic) metronidazole 500 mg tablet 500 mg PO TID 21 days #63 tabs 07/02/23 warfarin 2 mg tablet 4 mg (2 x 2 mg) PO DAILY #60 tabs 07/02/23 Results & Data (ED) Vital Signs Vital Signs - 24 hr 06/29/23 15:51 06/29/23 18:51 06/29/23 21:00 Temperature 37.0 C Temperature Source Temporal Artery Scan Pulse Rate 85 Pulse Rate [Finger] 84 80 Pulse Rhythm [Finger] Regular Pulse Strength [Finger] Normal Respiratory Rate 19 18 16 Respiratory Effort / Characteristics Non-Labored Spontaneous Non-Labored Spontaneous Non-Labored Respiratory Depth Normal Normal Normal Respiratory Pattern Regular Regular Blood Pressure 137/90 Blood Pressure [Right Arm] 148/106 H 135/90 Blood Pressure Mean 105 Blood Pressure Mean [Right Arm] 120 105 Pulse Oximetry 98 98 98 Oxygen Delivery Method Room Air Room Air Sepsis Recent Fever Within 48 Hours No Sepsis New/Unexplained Change in Mental Status No Sepsis Action Taken by Nursing No Action Required Home Medications Current Medication List: was personally reviewed by me Laboratory Data Attestation: I reviewed the patient's lab results. 07/02/23 06:11 07/02/23 06:11 Lab Results 06/29/23 Range/Units 16:16 WBC 12.58 H (4.8-10.8) K/ul RBC 4.78 (4.70-6.10) M/uL Hgb 14.7 (14.0-18.0) g/dl Hct 42.4 (42.0-52.0) % MCV 88.7 (80.0-100.0) fL MCH 30.8 (25.0-34.0) pg MCHC 34.7 (32.0-36.0) g/dL RDW Std Deviation 38.6 (36.4-46.3) fL RDW Coeff of Calista 11.9 (11.5-14.5) % Plt Count 333 (130-400) K/uL MPV 8.9 L (9.4-12.4) fL Immature Gran % (Auto) 0.6 % Neut % (Auto) 76.9 % Lymph % (Auto) 12.3 % [place] % (Auto) 9.6 % Eos % (Auto) 0.4 % Baso % (Auto) 0.2 % Neut # (Auto) 9.67 H (1.40-6.50) K/uL Lymph # (Auto) 1.55 (1.20-3.40) K/uL [place] # (Auto) 1.21 H (0.11-0.59) K/uL Eos # (Auto) 0.05 (0.00-0.50) K/uL Baso # (Auto) 0.03 (0.00-0.20) K/uL Immature Gran # (Auto) 0.07 (0.01-0.20) K/uL PT 24.6 H (9.0-12.0) Seconds INR 2.4 H (0.9-1.1) Sodium 135 L (136-145) mmol/L Potassium 4.1 (3.5-5.1) mmol/L Chloride 99 (98-107) mmol/L Carbon Dioxide 29 (21-32) mmol/L Anion Gap 7 (3-11) BUN 17 (6-23) mg/dl Creatinine 1.09 (0.6-1.4) mg/dl Est Cr Clr Drug Dosing 81.0 ml/min Est GFR ( Amer) 88.1 ml/min Est GFR (Non-Af Amer) 76.0 ml/min BUN/Creatinine Ratio 15.6 (10-20) Glucose 101 H (70-99(Fasting)) mg/dl Calcium 8.9 (8.6-10.3) mg/dl Total Bilirubin 0.5 (0.2-1.0) mg/dl AST 22 (13-39) U/L ALT 16 (7-52) U/L Alkaline Phosphatase 62 (34-104) U/L Total Protein 7.1 (6.0-8.3) gm/dl Albumin 3.6 (3.4-5.0) gm/dl Globulin 3.5 (2.5-4.0) gm/dl Albumin/Globulin Ratio 1.0 (0.9-2) Lipase 40 (11-82) U/L Administered Medications Discontinued Medications Enoxaparin Sodium (Enoxaparin 80 Mg/0.8 Ml Syr) 80 mg SC Q12H [facility] Stop: 07/30/23 20:59 Last Admin: 07/01/23 09:27 Dose: 80 mg Documented By: Admin: 06/30/23 20:30 Dose: 80 mg Documented By: CEDRICK Cefoxitin Sodium (Mefoxin) 2,000 mg in 60 mls @ 100 mls/hr IV NOW STA Stop: 06/29/23 19:44 Last Infusion: 06/29/23 20:10 Dose: Infused Documented By: Admin: 06/29/23 19:39 Dose: 100 mls/hr Documented By: HB Metronidazole (Flagyl) 500 mg in 100 mls @ 100 mls/hr IV NOW STA; Protocol Stop: 06/29/23 20:08 Last Infusion: 06/29/23 21:10 Dose: Infused Documented By: Admin: 06/29/23 20:07 Dose: 100 mls/hr Documented By: HB Sodium Chloride (Nss) 1,000 mls @ 999 mls/hr IV .Q1H1M ONE Stop: 06/29/23 20:10 Last Infusion: 06/29/23 21:00 Dose: Infused Documented By: Admin: 06/29/23 19:35 Dose: 999 mls/hr Documented By: HB Dextrose/Sodium Chloride (D5w And 1/2nss) 1,000 mls @ 125 mls/hr IV .Q8H LENI Stop: 07/29/23 22:22 Last Infusion: 06/30/23 12:12 Dose: Infused Documented By: Infusion: 06/30/23 12:10 Dose: 0 mls/hr Documented By: Admin: 06/30/23 06:12 Dose: 125 mls/hr Documented By: Infusion: 06/30/23 06:12 Dose: Infused Documented By: Admin: 06/29/23 22:59 Dose: 125 mls/hr Documented By: BLM Metronidazole (Flagyl) 500 mg in 100 mls @ 100 mls/hr IV Q8H LENI; Protocol Stop: 07/10/23 01:59 Last Infusion: 07/02/23 10:07 Dose: Infused Documented By: Admin: 07/02/23 09:05 Dose: 100 mls/hr Documented By: Infusion: 07/02/23 03:44 Dose: Infused Documented By: Admin: 07/02/23 02:43 Dose: 100 mls/hr Documented By: Infusion: 07/01/23 19:37 Dose: Infused Documented By: Admin: 07/01/23 17:49 Dose: 100 mls/hr Documented By: Infusion: 07/01/23 11:46 Dose: Infused Documented By: Admin: 07/01/23 10:34 Dose: 100 mls/hr Documented By: Infusion: 07/01/23 03:42 Dose: Infused Documented By: Admin: 07/01/23 02:29 Dose: 100 mls/hr Documented By: Infusion: 06/30/23 18:33 Dose: Infused Documented By: Admin: 06/30/23 17:32 Dose: 100 mls/hr Documented By: Infusion: 06/30/23 12:10 Dose: Infused Documented By: Admin: 06/30/23 11:03 Dose: 100 mls/hr Documented By: Infusion: 06/30/23 03:22 Dose: Infused Documented By: Admin: 06/30/23 02:22 Dose: 100 mls/hr Documented By: SALUD Cefoxitin Sodium 2,000 mg/ (Dextrose) 50 mls @ 100 mls/hr IV Q6H [facility]; Protocol Stop: 07/10/23 01:59 Last Infusion: 07/02/23 08:54 Dose: Infused Documented By: Admin: 07/02/23 08:19 Dose: 100 mls/hr Documented By: Infusion: 07/02/23 02:43 Dose: Infused Documented By: Admin: 07/02/23 02:06 Dose: 100 mls/hr Documented By: Infusion: 07/01/23 21:15 Dose: Infused Documented By: Admin: 07/01/23 20:34 Dose: 100 mls/hr Documented By: Infusion: 07/01/23 16:30 Dose: Infused Documented By: Admin: 07/01/23 14:03 Dose: 100 mls/hr Documented By: Infusion: 07/01/23 10:33 Dose: Infused Documented By: Admin: 07/01/23 09:27 Dose: 100 mls/hr Documented By: Infusion: 07/01/23 02:28 Dose: Infused Documented By: Admin: 07/01/23 02:06 Dose: 100 mls/hr Documented By: Infusion: 06/30/23 21:32 Dose: Infused Documented By: Admin: 06/30/23 20:30 Dose: 100 mls/hr Documented By: Infusion: 06/30/23 14:42 Dose: Infused Documented By: Admin: 06/30/23 14:01 Dose: 100 mls/hr Documented By: Infusion: 06/30/23 11:33 Dose: Infused Documented By: Admin: 06/30/23 10:32 Dose: 100 mls/hr Documented By: Infusion: 06/30/23 02:17 Dose: Infused Documented By: Admin: 06/30/23 01:47 Dose: 100 mls/hr Documented By: SALUD Phytonadione 2.5 mg/ Dextrose 50.25 mls @ 100.5 mls/hr IV 0745 ONE Stop: 06/30/23 08:14 Last Infusion: 06/30/23 10:32 Dose: Infused Documented By: Admin: 06/30/23 09:00 Dose: 100.5 mls/hr Documented By: MENDEL Warfarin Sodium (Warfarin Sod 2.5 Mg Tab) 2.5 mg PO DAILY@1600 LENI Stop: 07/31/23 15:59 Last Admin: 07/01/23 16:38 Dose: 2.5 mg Documented By: MENDEL Discharge Plan Visit Data Chief Complaint: Referred by Doctor Stated Complaint: REF BY DOC, CT SCAN RESULTS ED Provider: Greer Wen Discharge Problem: Colonic diverticular abscess Patient Disposition: Admitted As Inpatient Discharge Instructions Interventions: ED Discharge Assessment Last Done: 06/29/23 22:12
[2023-06-29] MEDS ORDERED: ONDANSETRON INJ 2 MG/ML 2 ML VIAL IV PRN (22:23)
[2023-06-29] MEDS ORDERED: MoRPHine SULFATE 2 MG/ML CARP IV PRN (22:23)
[2023-06-29] MEDS: D5W AND 1/2NSS 1,000 ML IV SCH (22:59)
[2023-06-30] MEDS: cefOXitin 2,000 MG in DEXTROSE 5 % MINI-B 50 ML IV SCH (01:47)
[2023-06-30] MEDS: metroNIDAZOLE 500 MG/100 ML BAG IV SCH (02:22)
[2023-06-30 05:47] LABS: Basophils # (auto) 0.02 K/uL (0.00-0.20); Basophils % (auto) 0.2 %; Eosinophils # (auto) 0.09 K/uL (0.00-0.50); Hematocrit (blood only) 39.4 % (42.0-52.0); Hemoglobin 13.6 g/dl (14.0-18.0); Immature Granulocytes # (auto) 0.06 K/uL (0.01-0.20); Immature Granulocytes % (auto) 0.6 %; Lymphocytes # (auto) 1.75 K/uL (1.20-3.40); Lymphocytes % (auto) 18.7 %; Mean Corpuscular Hemoglobin 30.8 pg (25.0-34.0); Mean Corpuscular Hgb Conc 34.5 g/dL (32.0-36.0); Mean Corpuscular Volume 89.1 fL (80.0-100.0); Mean Platelet Volume 8.6 fL (9.4-12.4); Monocytes # (auto) 1.01 K/uL (0.11-0.59); Monocytes % (auto) 10.8 %; Neutrophils # (auto) 6.43 K/uL (1.40-6.50); Neutrophils % (auto) 68.7 %; Platelet Count 295 K/uL (130-400); RDW Coefficient of Variation 12.1 % (11.5-14.5); RDW Standard Deviation 39.8 fL (36.4-46.3); Red Blood Count 4.42 M/uL (4.70-6.10); White Blood Count 9.36 K/ul (4.8-10.8)
[2023-06-30 06:03] LABS: BUN Creatinine Ratio 12.4 (10-20); Calcium 8.1 mg/dl (8.6-10.3); Creatinine Clr Calc Pharmacy 89.1 ml/min; Est GFR (African American) 101.4 ml/min; Est GFR (Non-African American) 87.5 ml/min; Magnesium 2.1 mg/dl (1.7-2.4); Potassium 3.9 mmol/L (3.5-5.1)
[2023-06-30 06:25] LABS: INR 2.5 (0.9-1.1); Prothrombin Time 25.7 Seconds (9.0-12.0)
--- OUTSIDE RECORDS SUMMARY | 2023-06-30 07:01 | External Medical Summary | Summary of Care ---
Author Name Unknown Organization [facility] Address [address] [place] [address] Phone [phone] Care Team Providers Care Dough Maker Name Role Phone Angelitoivy Ivy Zamoraly Primary Care Provider Reason for Visit * Reason Comments Appointment Encounter Details Date Type Department Care Team (Latest Contact Info) Description 05/18/2023 6:10 PM EST Anticoagulation Pharmacy, [facility] [address] [facility] [place] [address] [address], [facility] [address] [facility] [place] [address] History of pulmonary embolism*; Heterozygous factor V Leiden mutation (HCC) Allergies Active Allergy Reactions Criticality Noted Date Comments Penicillins 10/25/2001 Doesn't know. As a baby Other reaction(s): CHILDHOOD ALLERGY-UNKNOWN documented as of this encounter (statuses as of 05/18/2023) Medications Medication Sig Dispensed Refills Start Date End Date Status econazole nitrate (SPECTAZOLE) 1 % cream Apply to affected area twice a day on feet 15 g 0 0 Active Ondansetron 4 MG Oral Tablet Disintegrating (Zofran)Indications: Diverticulitis of colon with perforation Place 1 Tablet on tongue every 8 hours as needed for Nausea. dissolve on tongue. 30 Tablet 1 3 Active Dicyclomine HCl 10 MG Oral Capsule (Bentyl) Take 1 Capsule by mouth 3 times a day as needed for Cramping. 270 Capsule 0 3 Active Warfarin Sodium 5 MG Oral Tablet (Coumadin)Indication s:Heterozygous factor V Leiden mutation (HCC),Warfarin anticoagulation Take 7.5mg (1 1/2 tablets) Sun & Thur; 5mg (1 tablet) all other days OR DIRECTED BY ANTICOAGULATION CLINIC 110 Tablet 3 3 Active documented as of this encounter (statuses as of 05/18/2023) Active Problems Problem Noted Date Diagnosed Date Acute embolism and thrombosi s of deep vein of lower extremity 09/25/2022 History of deep venous thrombosis 12/18/2014 Overview: RLE Heterozygous factor V Leiden mutation 11/18/2014 Warfarin anticoagulation 11/18/2014 Overview: 09/26/2015: indefinite anticoagulation recommended because of heterozygous Factor Leiden with 2 episodes (2009 and 2014) of RLE DVT and one episode of associated bilateral pulmonary emboli in 2009 History of pulmonary embolism 03/04/2010 Chronic rhinitis 01/15/2006 documented as of this encounter (statuses as of 05/18/2023) Resolved Problems Problem Noted Date Diagnosed Date Resolved Date H/O deep vein thrombophlebit is of lower extremity 02/23/2017 02/23/2017 DVT, recurrent, lower extremity, acute 11/20/2014 01/20/2022 Overview: RIGHT DVT (deep venous thrombosis) (aka DVT (DEEP VENOUS THROMBOSIS)) 11/18/2014 12/18/2014 Iatrogenic pulmonary embolism and infarction 0 12/18/2014 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 of 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 icoagulant therapy 03/02/2010 08/10/2012 Overview: ICD-10 update of inactive term Pulmonary embolus 02/26/2010 08/10/2012 Overview: Associated with Factor V Leiden heterozygous FACTOR V LEIDEN 02/26/2010 11/18/2014 Overview: one copy of R506Q mutation, 4-8 fold risk for thrombosis AC MAXILLARY SINUSITIS, LEFT 01/15/2006 03/07/2010 Cough 01/15/2006 03/07/2010 documented as of this encounter (statuses as of 05/18/2023) Immunizations Name Administration Dates Next Due COVID-19 mRNA, LNP-s, No Pre serve, 2-Dose Series (Pfizer) 04/29/2021,09/03/2020,08/13/2020 Seasonal Influenza, PF, 6 M & above, IM , (FluLaval or Fluzone) 03/15/2023,01/20/2022,02/11/2021,2019 Seasonal Influenza, Quadriva lent, No Preserve, IM 03/02/2020,01/29/2016 Seasonal Influenza, Quadriva lent, No Preserve, Mdck 04/01/2018 Seasonal Influenza, Split, I IV3, With Preserve, Inj 02/17/2015,03/04/2014 TD, Preservative Free 05/25/2019 TDAP (age 11 and older)(Adacel) 08/14/2008 documented as of this encounter Social History Tobacco Use Types Packs/Day Years Used Date Smoking Tobacco: Former Cigarettes 0.1 10 Smokeless Tobacco: Never Alcohol Use Standard Drinks/Week Comments Yes 5 (1 standard drink = 0.6 oz pur e alcohol) PHQ-2 Answer Date Recorded PHQ-2 Score 0 05/25/2019 Hunger Vital Sign Answer Date Recorded Within the past 12 months, y ou worried that your food would run out before you got the money to buy more. Never true 09/26/19 23 Within the past 12 months, t he food you bought just didn't last and you didn't have money to get more. 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 [facility] message sent --no Clinic will follow up again in 2-3 week(s). [Attempt # N/A] Thank you, Lupis Ramos Java Software Architect [facility] ([facility]) [phone] 05/18/2023,9:20 AM documented in this encounter Plan of Treatment Upcoming Encounters Date Type Department Care Team (Late st Contact Info) Description 06/09/2023 6:10 PM EST Anticoagulation Pharmacy, [place] [place] [address] [facility] [place] [address] Pharmacist[address], [facility] [address] [facility] [place] [address] Scheduled Procedures Name Priority Associated Diagnoses Date/Ti me COLONOSCOPY FLEXIBLE PROXIMAL DIAGNOSTIC Recall History of colon polyps Health Maintenance Due Date Last Done Comments Hepatitis B (1 of 3 - 3-dose series) 1968 Hepatitis C Screening 1986 Lipid Panel 09/24/2015 09/23/2010 Zoster Vaccines (1 of 2) 2018 Depression Screening 05/25/2020 05/25/2019 COVID-19 Vaccine ( season) 2023 04/29/2021, 09/03/2020, 08/13/2020 COLONOSCOPY-EVERY 5 YRS AGES 18-100 09/02/2027 09/01/2022, 09/01/2022 DTaP,Tdap,and Td Vaccines (3 - Td or Tdap) 05/25/2029 05/25/2019, 08/14/2008 Cologuard Discontinued 05/25/2019 Colonoscopy Discontinued 09/01/2022, 09/01/2022 Colorectal Cancer Screening Discontinued Influenza Vaccine (FLU shot) Completed 03/15/2023, 01/20/2022, 02/11/2021, Additional history exists Fecal Occult Blood Test Discontinued GARDASIL-HPV IMMUNIZATION SERIES Aged Out No longer eligible based on patient's age to complete this topic MENINGOCOCCAL (MENACTRA/MENVEO) Aged Out No longer eligible based on patient's age to complete this topic Pneumococcal Vaccine: Pediatrics (0 to 5 Years) and At-Risk Patients (6 to 64 Years) Aged Out No longer eligible based on patient's age to complete this topic Sigmoidoscopy Discontinued documented as of this encounter Medical Devices Implanted Type Area Chair Springer Device Identifier Shelf Expiration Date Model / Serial / Lot Mesh 3dmax 3.1x5.3in t Med - [id number] Implanted:Qty: 1 on 12/04/2021 by Dima Rhodes MD at OR [facility] Right: Groin CR BARD : DAVOL 07/13/2026 [id number] / / [id number] documented as of this encounter Visit Diagnoses Diagnosis History of pulmonary embolism- Primary Personal history of pulmonary embolism Heterozygous factor V Leiden mutation (HCC) Primary hypercoagulable state documented in this encounter Advance Directives Latest Code Status on File Code Status Date Activated Date Inactivated Comments Full Code 12/04/2021 9:49 AM 12/04/2021 4:29 PM This order reflects the patients wishes and were consensually agreed upon. Code Status History Code Status Date Activated Date Inactivated Comments Full Code 12/04/2021 9:44 AM 12/04/2021 9:49 AM This order reflects the patients wishes and were consensually agreed upon. Care Teams Dough Maker Relationship Specialty Start Date End Date Ivy Chand DO [address] [place] [address] PCP - General Family Medicine 10/20/16 documented as of this encounter
--- OUTSIDE RECORDS SUMMARY | 2023-06-30 07:01 | External Medical Summary ---
Author Name Unknown Address Unknown Organization [id number][facility] [place] [address] Laboratory Report Ordering Provider Test Date Status OSWALDO BARTHOLOMEW 06/22/2023 14:48:28 Final Observation Date Value Abnormality Reference (Units ) Status BUN 06/22/2023 14:48:28 16 6-20 (mg/dL) Final Creatinine 06/22/2023 14:48:28 1.1 0.6-1.2 (mg/dL) Final Glomerular filtration rate/1.73 sq M.predicted [Volume Rate/Area] in Serum, Plasma or Blood by Creatinine-based formula (CKD-EPI) 06/22/2023 14:48:28 84 >=60 (mL/min) Final eGFR is calculated based on the CKD-EPI 2020 equation SODIUM 06/22/2023 14:48:28 135 135-146 (m mol/L) Final Potassium 06/22/2023 14:48:28 3.8 3.5-5.1 (m mol/L) Final Cl 06/22/2023 14:48:28 99 98-107 (mm ol/L) Final CO2 06/22/2023 14:48:28 27 22-32 (mmo l/L) Final Anion gap 06/22/2023 14:48:28 9 7-15 (mmol /L) Final Glucose 06/22/2023 14:48:28 123 Above high normal 70 -120 (mg/dL) Final Calcium 06/22/2023 14:48:28 8.9 8.4-10.2 ( mg/dL) Final Performing Location [facility] [place] [address]
--- OUTSIDE RECORDS SUMMARY | 2023-06-30 07:01 | External Medical Summary ---
Author Name Unknown Address Unknown Organization [facility] [place] [address] Laboratory Report Ordering Provider Test Date Status OSWALDO BARTHOLOMEW 06/22/2023 14:48:28 Final Observation Date Value Abnormality Reference (Units ) Status WBC, Total 06/22/2023 14:48:28 8.06 4.00-10.8 0 (K/uL) Final RBC 06/22/2023 14:48:28 5.14 4.50-5.25 (M/uL) Final Hemoglobin 06/22/2023 14:48:28 15.9 14.0-16.8 (g/dL) Final HCT 06/22/2023 14:48:28 46.9 40.0-48.4 (%) Final MCV 06/22/2023 14:48:28 91.2 82.0-99.5 (fL) Final MCH 06/22/2023 14:48:28 30.9 27.0-34.0 (pg) Final MCHC 06/22/2023 14:48:28 33.9 32.0-36.0 (g/dL) Final RDW 06/22/2023 14:48:28 12.7 11.5-15.5 (%) Final Platelets 06/22/2023 14:48:28 205 140-400 (K /uL) Final MPV 06/22/2023 14:48:28 8.9 6.6-11.1 ( fL) Final Performing Location [facility] [place] [place] [address]
--- OUTSIDE RECORDS SUMMARY | 2023-06-30 07:01 | External Medical Summary | Summary of Care ---
Author Name Unknown Organization [facility] Address [address] [place] [address] Phone [phone] Care Team Providers Care Lead Php Developer Name Role Phone Ivy Chand DO Primary Care Provider Reason for Visit * Reason Comments medication change Dosage Adjustment Via Phone (anticoag Cl inic) Encounter Details Date Type Department Care Team (Latest Contact Info) Description 06/22/2023 5:40 PM EST Anticoagulation Pharmacy, [facility] [address] [place] [address] Pharmacist1, [facility] 200 [place] [address] History of pulmonary embolism*; Heterozygous factor V Leiden mutation (HCC) Allergies Active Allergy Reactions Criticality Noted Date Comments Penicillins 10/25/2001 Doesn't know. As a baby Other reaction(s): CHILDHOOD ALLERGY-UNKNOWN documented as of this encounter (statuses as of 06/22/2023) Medications Medication Sig Dispensed Refills Start Date End Date Status econazole nitrate (SPECTAZOLE) 1 % cream Apply to affected area twice a day on feet 15 g 0 0 Active Dicyclomine HCl 10 MG Oral Capsule [...] ANTICO[facility]ULATION CLINIC 110 Tablet 3 3 Active Ciprofloxacin HCl 500 MG Oral Tablet (Cipro)Indications:A cute diverticulitis,Histo ry of diverticulitis Take 1 Tablet by mouth in the morning and 1 Tablet before bedtime. Do all this for 10 days. 20 Tablet 0 4 07/02/19 24 Active metroNIDAZOLE 500 MG Oral TabletIndications:Ac cherokee diverticulitis,Histo ry of diverticulitis Take 1 Tablet by mouth in the morning and 1 Tablet at noon and 1 Tablet before bedtime. Do all this for 10 days. 30 Tablet 0 4 07/02/19 24 Active documented as of this encounter (statuses as of 06/22/2023) Active Problems Problem Noted Date Diagnosed Date [...] as of this encounter (statuses as of 06/22/2023) Resolved Problems Problem Noted Date Diagnosed Date Resolved Date H/O deep vein thrombophlebit is of lower extremity 02/23/2017 02/23/2017 DVT, recurrent, lower extremity, acute 11/20/2014 01/20/2022 Overview: RIGHT DVT (deep venous thrombosis) (aka DVT (DEEP VENOUS THROMBOSIS)) 11/18/2014 12/18/2014 Iatrogenic pulmonary embolism and infarction 0 12/18/2014 Anticoagulation management encounter 03/02/2010 08/10/2012 long term care phlebotomist current use of ant icoagulant therapy 03/02/2010 08/10/2012 Overview: ICD-10 update of inactive term Pulmonary embolus 02/26/2010 08/10/2012 Overview: Associated with Factor V Leiden heterozygous FACTOR V LEIDEN 02/26/2010 11/18/2014 Overview: one copy of R506Q mutation, 4-8 fold risk for thrombosis AC MAXILLARY SINUSITIS, LEFT 01/15/2006 03/07/2010 Cough 01/15/2006 03/07/2010 documented as of this encounter (statuses as of 06/22/2023) Immunizations Name Administration Dates Next Due COVID-19 [...] as of this encounter Progress Notes * Leila V, Esteban, RPh - 06/22/2023 3:27 PM EST Patient Phone Numbers Patient started on Metronidazole and Cipro today for 10 days. Patient instructed to decrease the dose of Coumadin to 2.5 mg every Sun,Tue, Christine; 5 mg all other days for 10 days then resume previous dose, 7.5 mg every Sun, Christine; 5 mg all other days. INR in 19 days. Esteban Dee RPh, CACP, CDE Clinical Pharmacist Medication Therapy [facility] 06/22/2023, 3:28 PM documented in this encounter Plan of Treatment Upcoming Encounters Date Type Department Care Team (Late st Contact Info) Description 06/23/2023 1:00 PM EST Imaging Radiology [address] [facility] [place] [address] 07/11/2023 8:20 AM EST Anticoagulation Pharmacy, [facility] 200 [facility] [place] [address] Pharmacist1, [facility] 200 [facility] [place] [address] Scheduled Procedures Name Priority Associated Diagnoses Date/Ti [...] this encounter Medical Devices Implanted Type Area Magnetic Resonance Technologist Device Identifier Shelf Expiration Date Model / Serial / Lot Mesh 3dmax 3.1x5.3in Rht Med - [id number] Implanted:Qty: 1 on 12/04/2021 by Dima Rhodes MD at OR [facility] Right: Groin CR BARD : DAVOL 07/13/2026 [id number] / / [id number] documented as of this encounter Visit Diagnoses [...] and were consensually agreed upon. Care Teams Lead Php Developer Relationship Specialty Start Date End Date Ivy Chand DO [address] [place] [address] PCP - General Family Medicine 10/20/16 documented as of this encounter
--- OUTSIDE RECORDS SUMMARY | 2023-06-30 07:01 | External Medical Summary ---
Author Name Unknown Address Unknown Organization K[facility] [place] [address] Laboratory Report Ordering Provider Test Date Status OSWALDO BARTHOLOMEW 06/22/2023 14:48:28 Final Warfarin Therapy
INR: 2 .0-3.0 conventional anticoagulation
INR: 2.5- 3.5 high intensity anticoagulation Observation Date Value Abnormality Reference (Units ) Status PT 06/22/2023 14:48:28 21.9 Above high normal 11 .6-15.2 (seconds) Final INR 06/22/2023 14:48:28 1.9 Above high normal 0. 8-1.2 Final Performing Location [facility] [place] [address]
--- OUTSIDE RECORDS SUMMARY | 2023-06-30 07:01 | External Medical Summary | Summary of Care ---
Author Name Unknown Organization [facility] Address [address] [place] [address] Phone [phone] Care Team Providers Care Structural Draftsman Name Role Phone Angelitoivy Ivy Zamoraly Primary Care Provider Reason for Visit * Reason Comments Appointment Encounter Details Date Type Department Care Team (Latest Contact Info) Description 05/03/2023 6:10 PM EST Anticoagulation Pharmacy, [facility] 200 [facility] [place] [address] Pharmacist1, [facility] 200 [facility] [place] [address] History of pulmonary embolism*; Heterozygous factor V Leiden mutation (HCC) Allergies Active Allergy Reactions Criticality Noted Date Comments Penicillins 10/25/2001 Doesn't know. As a baby Other reaction(s): CHILDHOOD ALLERGY-UNKNOWN documented as of this encounter (statuses as of 05/03/2023) Medications Medication Sig Dispensed Refills Start Date [...] as of this encounter (statuses as of 05/03/2023) Active Problems Problem Noted Date Diagnosed Date [...] as of this encounter (statuses as of 05/03/2023) Resolved Problems Problem Noted Date Diagnosed Date Resolved Date H/O deep vein thrombophlebit is of lower extremity 02/23/2017 02/23/2017 DVT, recurrent, lower extremity, acute 11/20/2014 01/20/2022 Overview: RIGHT DVT (deep venous thrombosis) (aka DVT (DEEP VENOUS THROMBOSIS)) 11/18/2014 12/18/2014 Iatrogenic pulmonary embolism and infarction 0 12/18/2014 Anticoagulation management encounter 03/02/2010 08/10/2012 longterm current use of ant icoagulant therapy 03/02/2010 08/10/2012 Overview: ICD-10 update of inactive term Pulmonary embolus 02/26/2010 08/10/2012 Overview: Associated with Factor V Leiden heterozygous FACTOR V LEIDEN 02/26/2010 11/18/2014 Overview: one copy of R506Q mutation, 4-8 fold risk for thrombosis AC MAXILLARY SINUSITIS, LEFT 01/15/2006 03/07/2010 Cough 01/15/2006 03/07/2010 documented as of this encounter (statuses as of 05/03/2023) Immunizations Name Administration Dates Next Due COVID-19 [...] as of this encounter Progress Notes * Naila Figueroa, pattern chart writer - 05/03/2023 10:03 AM EST Patient Phone Numbers Left message on patients answering machine to schedule MTDM appointment for ACC management. [facility] message sent --no Clinic will follow up again in 1 week(s). R/S CXD 04/14/2023 OFS Thank you, Naila Figueroa Imaging Analyst [facility] 05/03/2023,10:09 AM documented in this encounter Plan of Treatment Upcoming Encounters Date Type Department Care Team (Late st Contact Info) Description 05/11/2023 6:10 PM EST Anticoagulation Pharmacy, [facility] [place] [address] [facility] [place] [address] Pharmacist1, [facility] 200 [facility] [place] [address] Scheduled Procedures Name Priority Associated Diagnoses Date/Ti me COLONOSCOPY FLEXIBLE PROXIMAL DIAGNOSTIC Recall History of colon polyps Health Maintenance Due Date Last Done Comments Hepatitis B (1 of 3 - 3-dose series) 1968 Hepatitis C Screening 1986 Lipid Panel 09/24/2015 09/23/2010 Zoster Vaccines (1 of 2) 2018 Depression Screening 05/25/2020 05/25/2019 COVID-19 Vaccine (2022- season) 2023 04/29/2021, 09/03/2020, 08/13/2020 COLONOSCOPY-EVERY 5 [...] this encounter Medical Devices Implanted Type Area Equine Vet Device Identifier Shelf Expiration Date Model / Serial / Lot Mesh 3dmax 3.1x5.3in Rht Med - [id number] Implanted:Qty: 1 on 12/04/2021 by Dima Rhodes MD at OR [facility] Right: Groin CR BARD : DAVOL 07/13/2026 [id number] / / [id number] documented as of this encounter Visit Diagnoses [...] and were consensually agreed upon. Care Teams Structural Draftsman Relationship Specialty Start Date End Date Ivy Chand DO [address] [place] [address] PCP - General Family Medicine 10/20/16 documented as of this encounter
--- OUTSIDE RECORDS SUMMARY | 2023-06-30 07:01 | External Medical Summary | Summary of Care ---
Author Name Unknown Organization [facility] Address [address] [place] [address] Phone [phone] Care Team Providers Care Carpenter Assistant Installer Name Role Phone Ivy Chand DO Primary Care Provider Reason for Visit * Reason Comments Outpatient Testing Encounter Details Date Type Department Care Team (Latest Contact Info) Description 06/22/2023 2:50 PM EST Laboratory Laboratory [facility] [address] [place] [id number] [facility] [address] [place] [address] Acute diverticulitis; History of diverticulitis; History of pulmonary embolism; Warfarin anticoagulation Allergies Active Allergy Reactions Criticality Noted Date [...] 24 Active metroNIDAZOLE 500 MG Oral TabletIndications:Ac eda diverticulitis,Histo ry of diverticulitis Take 1 Tablet [...] 0 12/18/2014 Anticoagulation management encounter 03/02/2010 08/10/2012 assisted current use of ant icoagulant therapy 03/02/2010 [...] on file documented as of this encounter Plan of Treatment Upcoming Encounters Date Type Department Care Team (Late st Contact Info) Description 06/23/2023 1:00 PM EST Imaging Radiology [facility] [place] 132 [facility] [place] [address] 07/11/2023 8:20 AM EST Anticoagulation Pharmacy, [facility] 200 [facility] [place] [address] Pharmacist1, [facility] 200 [facility] [place] [address] Pending Results Name Type Priority Associated Diagnoses Date /Time BASIC METABOLIC PANEL Lab STAT Acute diverticulitis History of diverticulitis 06/22/2023 2:48 PM EST PT INR Lab STAT Acute diverticulitis History of diverticulitis History of pulmonary embolism Warfarin anticoagulation 06/22/2023 2:48 PM EST Scheduled Procedures Name Priority Associated Diagnoses Date/Ti [...] this encounter Medical Devices Implanted Type Area Software Support Representative Device Identifier Shelf Expiration Date Model / Serial / Lot Mesh 3dmax 3.1x5.3in t Med - [id number] Implanted:Qty: 1 on 12/04/2021 by Dima Rhodes MD at OR [facility] Right: Groin CR BARD : DAVOL 07/13/2026 [id number] / / [id number] documented as of this encounter Procedures Procedure Name Priority Date/Time Associated Diagnosis Comments DIFFERENTIAL, AUTOMATED STAT 06/22/2023 2:48 PM EST Acute diverticulitis History of diverticulitis History of pulmonary embolism CBC STAT 06/22/2023 2:48 PM EST Acute diverticulitis History of diverticulitis History of pulmonary embolism CBC STAT 06/22/2023 2:48 PM EST Acute diverticulitis History of diverticulitis History of pulmonary embolism documented in this encounter Results * (ABNORMAL) DIFFERENTIAL, AUTOMATED (06/22/2023 2:48 PM EST) WBC 8.06 4.00 - 10.80 K/uL 06/22/2023 3:02 PM EST [facility] [place] 56-02 Neutrophils % 73.8 40.0 - 75.0 % 06/22/2023 3:02 PM EST [facility] [place] 56-02 Lymphocytes % 16.9(L) 18.0 - 42.0 % 06/22/2023 3:02 PM EST [facility] [place] 56-02 Monocytes % 8.7 1.0 - 11.0 % 06/22/2023 3:02 PM EST [facility] [place] 56-02 Eosinophils % 0.5 0.0 - 6.0 % 06/22/2023 3:02 PM EST [facility] [place] 56-02 Basophils % 0.1 0.0 - 2.0 % 06/22/2023 3:02 PM EST [facility] [place] 56-02 Absolute Neutrophils 5.95 1.80 - 7.70 K/uL 06/22/2023 3:02 PM EST [facility] [place] 56 Absolute Lymphocytes 1.36 1.00 - 4.80 K/ul 06/22/2023 3:02 PM [facility] 56- Absolute Monocytes 0.70 0.00 - 1.10 K/uL 06/22/2023 3:02 PM [facility] 56 Absolute Eosinophils 0.04 0.00 - 0.70 K/uL 06/22/2023 3:02 PM [facility] 56- Absolute Basophils 0.01 0.00 - 0.20 K/uL 06/22/2023 3:02 PM [facility] 56 Blood Venous blood specimen / Unknown Venipuncture / Unknown 06/22/2023 2:48 PM EST 06/22/2023 2:48 PM EST Bailey Naqvi MD LAB BLOOD ORDERABLES Performing Organization Address City/State/[facility] Co de Phone Number [facility] [address] [place] [address] * CBC (06/22/2023 2:48 PM EST) WBC 8.06 4.00 - 10.80 K/uL 06/22/2023 3:02 PM [facility] 56 RBC 5.14 4.50 - 5.25 M/uL 06/22/2023 3:02 PM [facility] 56 HGB 15.9 14.0 - 16.8 g/dL 06/22/2023 3:02 PM [facility] 56 HCT 46.9 40.0 - 48.4 % 06/22/2023 3:02 PM [facility] 56 MCV 91.2 82.0 - 99.5 fL 06/22/2023 3:02 PM [facility] 56 MCH 30.9 27.0 - 34.0 pg 06/22/2023 3:02 PM [facility] 56 MCHC 33.9 32.0 - 36.0 g/dL 06/22/2023 3:02 PM [facility] 56 RDW 12.7 11.5 - 15.5 % 06/22/2023 3:02 PM [facility] PLT 205 140 - 400 K/uL 06/22/2023 3:02 PM EST [facility] 56 MPV 8.9 6.6 - 11.1 fL 06/22/2023 3:02 PM [facility] 56 Blood Venous blood specimen / Unknown Venipuncture / Unknown 06/22/2023 2:48 PM EST 06/22/2023 2:48 PM EST Bailey Naqvi MD LAB BLOOD ORDERABLES [facility] [address] documented in this encounter Visit Diagnoses Diagnosis Acute diverticulitis Diverticulitis of colon (without mention of hemorrhage) History of diverticulitis History of pulmonary embolism Personal history of pulmonary embolism Warfarin anticoagulation Long-term (current) use of anticoagulants documented in this encounter Advance Directives Latest [...] and were consensually agreed upon. Care Teams Carpenter Assistant Installer Relationship Specialty Start Date End Date Ivy Chand DO 200 [facility] [place] [address] PCP - General Family Medicine 10/20/16 documented as of this encounter
--- OUTSIDE RECORDS SUMMARY | 2023-06-30 07:01 | External Medical Summary | Summary of Care ---
Author Name Unknown Organization [facility] Address [address] [place] [address] Phone [phone] Care Team Providers Care Wood Cabinet Finisher Name Role Phone Ivy Chand DO Primary Care Provider Reason for Visit * Reason Comments Dosage Adjustment Via Phone (anticoag Cl inic) Encounter Details Date Type Department Care Team (Latest Contact Info) Description 05/11/2023 6:10 PM EST Anticoagulation Pharmacy, [facility] 200 [place] [address] Pharmacist1, [facility] 200 [place] [address] History of pulmonary embolism*; Heterozygous factor V Leiden mutation (HCC) Allergies Active Allergy Reactions Criticality Noted Date Comments Penicillins 10/25/2001 Doesn't know. As a baby Other reaction(s): CHILDHOOD ALLERGY-UNKNOWN documented as of this encounter (statuses as of 05/11/2023) Medications Medication Sig Dispensed Refills Start Date [...] as of this encounter (statuses as of 05/11/2023) Active Problems Problem Noted Date Diagnosed Date [...] as of this encounter (statuses as of 05/11/2023) Resolved Problems Problem Noted Date Diagnosed Date Resolved Date H/O deep vein thrombophlebit is of lower extremity 02/23/2017 02/23/2017 DVT, recurrent, lower extremity, acute 11/20/2014 01/20/2022 Overview: RIGHT DVT (deep venous thrombosis) (aka DVT (DEEP VENOUS THROMBOSIS)) 11/18/2014 12/18/2014 Iatrogenic pulmonary embolism and infarction 0 12/18/2014 Anticoagulation management encounter 03/02/2010 08/10/2012 prison current use of ant icoagulant therapy 03/02/2010 08/10/2012 Overview: ICD-10 update of inactive term Pulmonary embolus 02/26/2010 08/10/2012 Overview: Associated with Factor V Leiden heterozygous FACTOR V LEIDEN 02/26/2010 11/18/2014 Overview: one copy of R506Q mutation, 4-8 fold risk for thrombosis AC MAXILLARY SINUSITIS, LEFT 01/15/2006 03/07/2010 Cough 01/15/2006 03/07/2010 documented as of this encounter (statuses as of 05/11/2023) Immunizations Name Administration Dates Next Due COVID-19 [...] as of this encounter Progress Notes * Rhina Francois, electrode turner and finisher - 05/11/2023 9:21 AM EST Patient Phone Numbers Left message on patients answering machine to schedule MTD appointment for coag management. [facility] message sent --no Clinic will follow up again in 1 week(s). Thank you, Rhina Francois Lead Atg Developer [facility] ([facility]) (Formerly Telepharmacy) 05/11/2023, 9:22 AM documented in this encounter Plan of Treatment Upcoming Encounters Date Type Department Care Team (Late st Contact Info) Description 05/18/2023 6:10 PM EST Anticoagulation Pharmacy, [facility] [place] 200 [facility] [place] [address] Pharmacist1, [facility] [address] [place] [address] Scheduled Procedures Name Priority Associated Diagnoses Date/Ti [...] this encounter Medical Devices Implanted Type Area Adzing And Boring Machine Operator Device Identifier Shelf Expiration Date Model / Serial / Lot Mesh 3dmax 3.1x5.3in t Med - [id number] Implanted:Qty: 1 on 12/04/2021 by Dima Rhodes MD at OR [facility] Right: Groin CR BARD : DAVOL 07/13/2026 [id number] / / [id number] documented as of this encounter Visit Diagnoses [...] and were consensually agreed upon. Care Teams Wood Cabinet Finisher Relationship Specialty Start Date End Date Ivy Chand DO [address] [place] [address] PCP - General Family Medicine 10/20/16 documented as of this encounter
--- OUTSIDE RECORDS SUMMARY | 2023-06-30 07:01 | External Medical Summary ---
Author Name Unknown Address Unknown Organization [facility] [place] [address] Laboratory Report Ordering Provider Test Date Status FLORIDAOSWALDO 06/22/2023 14:48:28 Final Observation Date Value Abnormality Reference (Units ) Status SYNC LEUKOCYTES IN BLOOD BY AUTOMATED COUNT 06/22/2023 14:48:28 8.06 4.00-10.80 (K/uL) Final Segs 06/22/2023 14:48:28 73.8 40.0-75.0 (%) Final Lymphs % 06/22/2023 14:48:28 16.9 Below low normal 18.0-42.0 (%) Final Monos 06/22/2023 14:48:28 8.7 1.0-11.0 (%) Final Eosinophils 06/22/2023 14:48:28 0.5 0.0-6.0 (%) Final Basos 06/22/2023 14:48:28 0.1 0.0-2.0 (%) Final Absolute Segs 06/22/2023 14:48:28 5.95 1.80-7.70 (K/uL) Final Lymphs, absolute 06/22/2023 14:48:28 1.36 1.00-4.80 (K/ul) Final Monos, Abs 06/22/2023 14:48:28 0.70 0.00-1.10 (K/uL) Final Eos, Abs 06/22/2023 14:48:28 0.04 0.00-0.70 (K/uL) Final Basos, Abs 06/22/2023 14:48:28 0.01 0.00-0.20 (K/uL) Final Performing Location [facility] [place] [address]
--- OUTSIDE RECORDS SUMMARY | 2023-06-30 07:01 | External Medical Summary ---
Author Name Unknown Address Unknown Organization [facility] [address] [place] [address] Laboratory Report Ordering Provider Test Date Status KATHLEENALEXI V 05/26/2023 08:14:25 Final Therapeutic ranges for non-o perative patients:
Prophylaxsis/treatment of DVT: (Range:2.0-3.0)
Treatment of pulmonary embolism:(Range:2.0-3.0)
Prevention of systemic embolism from:
-tissue heart valves
-acute myocardial infarction
-valvular heart disease
-atrial fibrillation
(Range: 2.0-3.0)
Mechanical prosthetic valves: (Range: 2.5-3.5) Observation Date Value Abnormality Reference (Units ) Status INR in Capillary blood by Coagulation assay 05/26/2023 08:14:25 2.0 (INR) Final Performing Location [facility] [place] [address]
--- OUTSIDE RECORDS SUMMARY | 2023-06-30 07:01 | External Medical Summary | Summary of Care ---
Author Name Unknown Organization [facility] Address [address] [place] [address] Phone [phone] Care Team Providers Care Cadet Deck Name Role Phone Ivy Chand DO Primary Care Provider Reason for Visit * Reason Comments Dosage Adjustment In Person (Anticoag Cl inic) Encounter Details Date Type Department Care Team (Latest Contact Info) Description 05/26/2023 8:10 AM EST Anticoagulation Pharmacy, [facility] 200 [facility] [place] [address] Pharmacist1, [facility] 200 [place] [address] History of pulmonary embolism*; Heterozygous factor V Leiden mutation (HCC); Anticoagulation management encounter; 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 As a baby Other reaction(s): CHILDHOOD ALLERGY-UNKNOWN documented as of this encounter (statuses as of 05/26/2023) Medications Medication Sig Dispensed Refills Start Date [...] as of this encounter (statuses as of 05/26/2023) Active Problems Problem Noted Date Diagnosed Date [...] as of this encounter (statuses as of 05/26/2023) Resolved Problems Problem Noted Date Diagnosed Date Resolved Date H/O deep vein thrombophlebit is of lower extremity 02/23/2017 02/23/2017 DVT, recurrent, lower extremity, acute 11/20/2014 01/20/2022 Overview: RIGHT DVT (deep venous thrombosis) (aka DVT (DEEP VENOUS THROMBOSIS)) 11/18/2014 12/18/2014 Iatrogenic pulmonary embolism and infarction 0 12/18/2014 Anticoagulation management encounter 03/02/2010 08/10/2012 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 use of 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 icoagulant therapy 03/02/2010 08/10/2012 Overview: ICD-10 update of inactive term Pulmonary embolus 02/26/2010 08/10/2012 Overview: Associated with Factor V Leiden heterozygous FACTOR V LEIDEN 02/26/2010 11/18/2014 Overview: one copy of R506Q mutation, 4-8 fold risk for thrombosis AC MAXILLARY SINUSITIS, LEFT 01/15/2006 03/07/2010 Cough 01/15/2006 03/07/2010 documented as of this encounter (statuses as of 05/26/2023) Immunizations Name Administration Dates Next Due COVID-19 [...] as of this encounter Progress Notes * Esteban George, [facility] - 05/26/2023 8:11 AM EST Medication Therapy Disease Management - Anticoagulation Silvino Beasley 1970 Description (Takes in AM) Patient Findings Negatives: Signs/symptoms of thrombosis, Signs/symptoms of bleeding, Change in health, Change in alcohol use, Change in activity, Upcoming invasive procedure, Missed doses, Extra doses, Change in medications, Change in diet/appetite, Bruising INR Result As of 05/26/2023 INR goal: 2.0-3.0 INR used for dosin.0 (05/26/2023) Warfarin Plan As of 05/26/2023 Full warfarin instructions: 7.5 mg every Sun, Christine; 5 mg all other days No change documented: Esteban George RPh Next INR check: 07/11/2023 Repeat PT/INR in 6 week(s) Weekly dose: not changed Esteban Dee RPh, CACP, CDE Clinical Pharmacist [facility] 05/26/2023 8:18 AM documented in this encounter Plan of Treatment Upcoming Encounters Date Type Department Care Team (Late st Contact Info) Description 07/11/2023 8:20 AM EST Anticoagulation Pharmacy, [facility] 200 [facility] [place], [place] [address] Pharmacist1, [facility] 200 [facility] [address] Scheduled Procedures Name Priority Associated Diagnoses Date/Ti [...] this encounter Medical Devices Implanted Type Area City Bailiff Device Identifier Shelf Expiration Date Model / Serial / Lot Mesh 3dmax 3.1x5.3in Rht Med - [id number] Implanted:Qty: 1 on 12/04/2021 by Dima Rhodes MD at [facility] Right: Groin CR BARD : DAVOL 07/13/2026 [id number] / / [id number] documented as of this encounter Procedures Procedure Name Priority Date/Time Associated Diagnosis Comments INR FINGERSTICK, POINT OF CARE STAT 05/26/2023 8:14 AM EST Heterozygous factor V Leiden mutation (HCC) History of pulmonary embolism Anticoagulation management encounter 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 use of anticoagulant therapy documented in this encounter Results * INR FINGERSTICK, POINT OF CARE (05/26/2023 8:14 AM EST) Fingerstick INR 2.0 INR 8:20 AM EST [facility] [place] Blood 05/26/2023 8:14 AM EST 05/26/2023 8:20 AM EST Narrative [facility] [place] - 05/26/2023 8:20 AM EST Therapeutic ranges for non-operative patients: Prophylaxsis/treatment of DVT: (Range:2.0-3.0) Treatment of pulmonary embolism:(Range:2.0-3.0) Prevention of systemic embolism from: -tissue heart valves -acute myocardial infarction -valvular heart disease -atrial fibrillation (Range: 2.0-3.0) Mechanical prosthetic valves: (Range: 2.5-3.5) Esteban Leila V, RPh LAB POINT OF CARE TE ST DOCKED DEVICE UNSOLICITED RESULTS [facility] 56-02 [address] [place] [address] documented in this encounter Visit Diagnoses Diagnosis History of pulmonary embolism- Primary Personal history of pulmonary embolism Heterozygous factor V Leiden mutation (HCC) Primary hypercoagulable state Anticoagulation management encounter Encounter for therapeutic drug monitoring skilled nursing current use of anticoagulant therapy documented in this encounter Advance Directives Latest [...] and were consensually agreed upon. Care Teams Cadet Deck Relationship Specialty Start Date End Date [facility] Chand [facility] [address] PCP - General Family Medicine 10/20/16 documented as of this encounter
--- OUTSIDE RECORDS SUMMARY | 2023-06-30 07:01 | External Medical Summary | Summary of Care ---
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 See MT note Esteban Dee RPh, [facility] Clinical Pharmacist Medication Therapy Management Clinic 06/22/2023, 3:50 PM * Telephone Encounter - Kaur Easley RPh - 06/22/2023 3:18 PM EST BPA for metronidazole with warfarin, please address. Kaur Easley, Pharm D, [facility] Clinical Pharmacist 06/22/2023, 3:19 PM documented in this encounter Plan of Treatment Upcoming Encounters Date Type Department Care Team (Latest Contact Info) Description 06/22/2023 5:40 PM EST [facility]acy, [facility] 200 [facility] [place] [address] Pharmacist1, [facility] 200 [facility] [place] [address] History of pulmonary embolism*; Heterozygous factor V Leiden mutation (HCC) 06/23/2023 1:00 PM EST Imaging Radiology [facility] [address] [place] [address] 07/11/2023 8:20 AM EST Anticoagulation Pharmacy, [facility] [address] [facility] [place] [address] Pharmacist1, [facility] 200 [facility] [place] [address] Scheduled Procedures Name Priority Associated Diagnoses Date/Ti [...] this encounter Medical Devices Implanted Type Area Security Controls Assessor Device Identifier Shelf Expiration Date Model / Serial / Lot Mesh 3dmax 3.1x5.3in t Med - [id number] Implanted:Qty: 1 on 12/04/2021 by Dima Rhodes MD at [facility] Right: Groin CR BARD : DAVOL 07/13/2026 [id number] / / [id number] documented as of this encounter Advance Directives Latest Code Status [...] and were consensually agreed upon. Care Teams Chrome Plater Relationship Specialty Start Date End Date Ivy Chand DO [address] [place] [address] PCP - General Family Medicine 10/20/16 documented as of this encounter
--- OUTSIDE RECORDS SUMMARY | 2023-06-30 07:02 | External Medical Summary | Summary of Care ---
Author Name Unknown Organization [facility] Address [address] [place] [address] Phone [phone] Care Team Providers Care Welfare Director Name Role Phone Ivy Chand DO Primary Care Provider Reason for Visit * Reason Comments Appointment Encounter Details Date Type Department Care Team Description 02/21/2023 Anticoagulation Pharmacy, [facility] [address] [facility] [place] [address] Pharmacist1, [facility] [address] [place] [address] Anticoagulation management encounter* Allergies Active Allergy Reactions Severity Noted Date Comments Penicillins 10/25/2001 Doesn't know. As a baby Other reaction(s): CHILDHOOD ALLERGY-UNKNOWN documented as of this encounter (statuses as of 02/21/2023) Medications Medication Sig Dispensed Refills Start Date End Date Status econazole nitrate (SPECTAZOLE) 1 % cream Apply to affected area twice a day on feet 15 g 0 05/25/2019 Active Ondansetron 4 MG Oral Tablet Disintegrating (Zofran)Indications: Diverticulitis of colon with perforation Place 1 Tablet on tongue every 8 hours as needed for Nausea. dissolve on tongue. 30 Tablet 1 12/01/2022 Active Warfarin Sodium 5 MG Oral Tablet (Coumadin)Indication s:Heterozygous factor V Leiden mutation (HCC),Warfarin anticoagulation TAKE 1 TABLET DAILY OR DIRECTED BY ANTICOAGULANT CLINIC 120 Tablet 1 12/12/2022 Active Dicyclomine HCl 10 MG Oral Capsule (Bentyl) Take 1 Capsule by mouth 3 times a day as needed for Cramping. 270 Capsule 0 01/03/2023 Active documented as of this encounter (statuses as of 02/21/2023) Active Problems Problem Noted Date Acute embolism and thrombosis of deep ve in of lower extremity 09/25/2022 History of deep venous thrombosis 2014 Overview: RLE Heterozygous factor V Leiden mutation Warfarin anticoagulation 11/18/2014 Overview: 09/26/2015: indefinite anticoagulation recommended because of heterozygous Factor Leiden with 2 episodes (2009 and 2014) of RLE DVT and one episode of associated bilateral pulmonary emboli in 2009 History of pulmonary embolism 03/04/2010 Chronic rhinitis 01/15/2006 documented as of this encounter (statuses as of 02/21/2023) Resolved Problems Problem Noted Date Resolved Date H/O deep vein thrombophlebitis of lower extremit y 02/23/2017 02/23/2017 DVT, recurrent, lower extremity, acute 5 01/20/2022 Overview: RIGHT DVT (deep venous thrombosis) (aka DVT (DEEP VENOUS THROMBOSIS)) 11/18/2014 12/18/2014 Iatrogenic pulmonary embolism and infarction 12/18/2014 Anticoagulation management encounter 03/02/2010 08/10/2012 detention current use of anticoagulant therapy 1 08/10/2012 Overview: ICD-10 update of inactive term Pulmonary embolus 02/26/2010 08/10/2012 Overview: Associated with Factor V Leiden heterozygous FACTOR V LEIDEN 02/26/2010 11/18/2014 Overview: one copy of R506Q mutation, 4-8 fold risk for thrombosis AC MAXILLARY SINUSITIS, LEFT 01/15/2006 Cough 01/15/2006 03/07/2010 documented as of this encounter (statuses as of 02/21/2023) Immunizations Name Administration Dates Next Due COVID-19 mRNA, LNP-s, No Pre serve, 2-Dose Series (Pocket Concierge) 04/29/2021,09/03/2020,08/13/2020 SEASONAL INFLUENZA, PF, 6 M & Above, IM , (FLULAVAL or FLUZONE) 01/20/2022,02/11/2021,05/25/2019 Seasonal Influenza, Quadriva lent, No Preserve, IM [...] drink = 0.6 oz pur e alcohol) Food Insecurity Answer Date Recorded Within the past 12 months, y ou worried that your food would run out before you got money to buy more. Never true 09/25/2022 Within the past 12 months, t he food you bought just didn't last and you didn't have money to get more. Never true 09/25/2022 Sex Assigned at Date Recorded Male 09/25/2022 9:21 AM E DT Job Start Date Occupation Industry Not on file Not on file Not on file documented as of this encounter Progress Notes * KEELEY Macario - 02/21/2023 9:41 AM EDT Patient Phone Numbers Left message on patients answering machine to schedule [facility] appointment for coag management. [facility] message sent --no Clinic will follow up again in 2-3 week(s). Thank you, Anahi Yang Hander [facility] 02/21/2023,9:41 AM documented in this encounter Plan of Treatment Upcoming Encounters Date Type Specialty Care Team Description 03/08/2023 Anticoagulation Pharmacy Pharmacist1, [facility] [address] [place], [place] [address] Scheduled Procedures Name Priority Associated Diagnoses Date/Ti me COLONOSCOPY FLEXIBLE PROXIMAL DIAGNOSTIC Recall History of colon polyps Health Maintenance Due Date Last Done Comments Hepatitis B (1 of 3 - 3-dose series) 1970 Hepatitis C Screening 1986 Lipid Panel 09/24/2015 09/23/2010 Zoster Vaccines (1 of 2) 2018 Depression Screening 05/25/2020 05/25/2019 COVID-19 Vaccine (4 - 24 season) 2023 04/29/2021, 09/03/2020, 08/13/2020 Influenza Vaccine (FLU shot) (#1) 2023 01/20/2022, 02/11/2021, 03/02/2020, Additional history exists COLONOSCOPY-EVERY 5 YRS AGES 18-100 09/02/2027 09/01/2022, 09/01/2022 DTaP,Tdap,and Td Vaccines (3 - Td or Tdap) 05/25/2029 05/25/2019, 08/14/2008 Cologuard Discontinued 05/25/2019 Colonoscopy Discontinued 09/01/2022, 09/01/2022 Colorectal Cancer Screening Discontinued Fecal Occult Blood Test Discontinued GARDASIL-HPV IMMUNIZATION [...] this encounter Medical Devices Implanted Type Area Supervisor Floor Assembly Device Identifier Shelf Expiration Date Model / Serial / Lot Mesh 3dmax 3.1x5.3in t Med - [id number] Implanted:Qty: 1 on 12/04/2021 by Dima Rhodes MD at [facility] Right: Groin CR BARD : DAVOL 07/13/2026 [id number] / / [id number] documented as of this encounter Visit Diagnoses Diagnosis Anticoagulation management encounter- Primary Encounter for therapeutic drug monitoring documented in this encounter Advance Directives Latest [...] and were consensually agreed upon. Care Teams Welfare Director Relationship Specialty Start Date End Date Ivy Chand DO [address] [place] [address] PCP - General Family Medicine 10/20/16 documented as of this encounter
--- OUTSIDE RECORDS SUMMARY | 2023-06-30 07:02 | External Medical Summary | Summary of Care ---
Author Name Unknown Organization [facility] Address [address] [place] [facility] [place] [address] Phone [phone] Care Team Providers Care Stud Beef Cattle Farmer Name Role Phone Ivy Chand DO Primary Care Provider Reason for Visit * Reason Onset Date Comments Dosage Adjustment In Person (Anticoag Clinic) Medication Administration 03/15/2023 Flu an d/or Pneumo Inj Encounter Details Date Type Department Care Team (Latest Contact Info) Description 03/15/2023 8:20 AM EDT Anticoagulation Pharmacy, [facility] 200 [facility] [place] [address] Pharmacist1, [facility] 200 [facility] [place] [address] History of pulmonary embolism*; Heterozygous factor V Leiden mutation (HCC); Anticoagulation management encounter; 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 As a baby Other reaction(s): CHILDHOOD ALLERGY-UNKNOWN documented as of this encounter (statuses as of 03/15/2023) Medications Medication Sig Dispensed Refills Start Date [...] as of this encounter (statuses as of 03/15/2023) Active Problems Problem Noted Date Diagnosed Date [...] as of this encounter (statuses as of 03/15/2023) Resolved Problems Problem Noted Date Diagnosed Date Resolved Date H/O deep vein thrombophlebit is of lower extremity 02/23/2017 02/23/2017 DVT, recurrent, lower extremity, acute 11/20/2014 01/20/2022 Overview: RIGHT DVT (deep venous thrombosis) (aka DVT (DEEP VENOUS THROMBOSIS)) 11/18/2014 12/18/2014 Iatrogenic pulmonary embolism and infarction 0 12/18/2014 Anticoagulation management encounter 03/02/2010 08/10/2012 half-way current use of ant icoagulant therapy 03/02/2010 08/10/2012 Overview: ICD-10 update of inactive term Pulmonary embolus 02/26/2010 08/10/2012 Overview: Associated with Factor V Leiden heterozygous FACTOR V LEIDEN 02/26/2010 11/18/2014 Overview: one copy of R506Q mutation, 4-8 fold risk for thrombosis AC MAXILLARY SINUSITIS, LEFT 01/15/2006 03/07/2010 Cough 01/15/2006 03/07/2010 documented as of this encounter (statuses as of 03/15/2023) Immunizations Name Administration Dates Next Due COVID-19 mRNA, LNP-s, No Pre serve, 2-Dose Series (Pfizer) 04/29/2021,09/03/2020,08/13/2020 SEASONAL INFLUENZA, PF, 6 M & Above, IM , (FLULAVAL or FLUZONE) 03/15/2023,01/20/2022,02/11/2021,2019 Seasonal Influenza, Quadriva lent, No Preserve, [...] on file documented as of this encounter Patient Instructions * Patient Instructions* Esteban George RPh - 03/15/2023 8:29 AM EDT ~~PATIENT INSTRUCTIONS FOR FLU SHOT~~ Possible side effects of influenza vaccine, (flu shot), are usually mild and include: 1. Soreness or redness at injection site 2. Low grade fever 3. Body aches You may use Tylenol/Acetaminophen as needed for these symptoms. LET YOUR DOCTOR KNOW IMMEDIATELY IF YOU HAVE DIFFICULTY BREATHING OR SWALLOWING, EXPERIENCE ITCHINGOF FEET OR HANDS, HAVE SWELLING OF EYES, FACE OR INSIDE OF NOSE. documented in this encounter Progress Notes * Esteban George RPh - 03/15/2023 8:23 AM EDT Images from the original note were not included. PRE - ADMINISTRATION DOCUMENTATION Are you experiencing any cold symptoms or fever? No Have you had Guillain-Pep Syndrome (an illness that causes paralysis) within the last 6 weeks? No Have you had the flu shot in the past? YES Have you ever had a reaction to the flu shot? No Esteban Dee RPh, 03/15/2023 8:29 AM Immunization Administration Documentation Time Out Procedure Performed: Yes Patient Identified (Ask Name/Date of ): Yes Does the patient have a fever greater than 101 degrees today? No Patient allergic to latex? No C Stock: No Immunization(s) verified: Yes, Immunization Name: Flu, VIS Sheet(s) given: Yes Verified Side and Site: Yes Verified Shot(s) with Parent(s)/Patient: YesMedication Therapy Disease Management - Anticoagulation Silvino Beasley 1970 Description (Takes in AM) Patient Findings Positives: Missed doses (He missed his 2.5mg extra on and last ) Negatives: Signs/symptoms of thrombosis, Signs/symptoms of bleeding, Change in health, Change in alcohol use, Change in activity, Upcoming invasive procedure, Extra doses, Change in medications, Change in diet/appetite, Bruising INR Result As of 03/15/2023 INR goal: 2.0-3.0 INR used for dosin.9 (03/15/2023) Warfarin Plan As of 03/15/2023 Full warfarin instructions: 03/15: 7.5 mg; Otherwise 7.5 mg every Sun, Christine; 5 mg all other days Next INR check: 04/14/2023 Repeat PT/INR in 4 week(s) Weekly dose: not changed Esteban Dee RPh, CACP, CDE Clinical Pharmacist Medication Therapy Management Clinic 03/15/2023 8:34 AM documented in this encounter Plan of Treatment Upcoming Encounters Date Type Department Care Team (Late st Contact Info) Description 04/14/2023 9:20 AM EST Anticoagulation Pharmacy, [facility] 200 [facility] [place] [address] Pharmacist1, [facility] 200 [facility] [place], [place] [address] Scheduled Procedures Name Priority Associated Diagnoses Date/Ti [...] this encounter Medical Devices Implanted Type Area Associate Technician Device Identifier Shelf Expiration Date Model / Serial / Lot Mesh 3dmax 3.1x5.3in t Med - [id number] Implanted:Qty: 1 on 12/04/2021 by Dima Rhodes MD at [facility] Right: Groin CR BARD : DAVOL 07/13/2026 [id number] / / [id number] documented as of this encounter Procedures Procedure Name Priority Date/Time Associated Diagnosis Comments INR FINGERSTICK, POINT OF CARE STAT 03/15/2023 8:26 AM EDT Heterozygous factor V Leiden mutation (HCC) History of pulmonary embolism Anticoagulation management encounter half-way current use of anticoagulant therapy documented in this encounter Results * INR FINGERSTICK, POINT OF CARE (03/15/2023 8:26 AM EDT) Fingerstick INR 1.9 INR 8:27 AM EDT [facility] Blood 03/15/2023 8:26 AM EDT 03/15/2023 8:27 AM EDT Narrative [facility] - 03/15/2023 8:27 AM EDT Therapeutic ranges for non-operative patients: Prophylaxsis/treatment of DVT: (Range:2.0-3.0) Treatment of pulmonary embolism:(Range:2.0-3.0) Prevention of systemic embolism from: -tissue heart valves -acute myocardial infarction -valvular heart disease -atrial fibrillation (Range: 2.0-3.0) Mechanical prosthetic valves: (Range: 2.5-3.5) Esteban Leila V, [facility] LAB POINT OF CARE TE ST DOCKED DEVICE UNSOLICITED RESULTS [facility] [place] [address] documented in this encounter Visit Diagnoses Diagnosis History of pulmonary embolism- Primary Personal history of pulmonary embolism Heterozygous factor V Leiden mutation (HCC) Primary hypercoagulable state Anticoagulation management encounter Encounter for therapeutic drug monitoring 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 Care Teams Stud Beef Cattle Farmer Relationship Specialty Start Date End Date Ivy Chand DO [address] [place] [address] PCP - General Family Medicine 10/20/16 documented as of this encounter
--- OUTSIDE RECORDS SUMMARY | 2023-06-30 07:02 | External Medical Summary ---
Author Name Unknown Address Unknown Organization [id number]:[facility] [place] [place] [address] Laboratory Report Ordering Provider Test Date Status KATHLEENALEXI V 03/15/2023 08:26:11 Final Therapeutic ranges for non-o perative patients:
Prophylaxsis/treatment of DVT: (Range:2.0-3.0)
Treatment of pulmonary embolism:(Range:2.0-3.0)
Prevention of systemic embolism from:
-tissue heart valves
-acute myocardial infarction
-valvular heart disease
-atrial fibrillation
(Range: 2.0-3.0)
Mechanical prosthetic valves: (Range: 2.5-3.5) Observation Date Value Abnormality Reference (Units ) Status INR in Capillary blood by Coagulation assay 03/15/2023 08:26:11 1.9 (INR) Final Performing Location [facility] [place] [place] [address]
--- OUTSIDE RECORDS SUMMARY | 2023-06-30 07:02 | External Medical Summary | Summary of Care ---
Author Name Unknown Organization [facility] Address [address] [place] [address] Phone [phone] Care Team Providers Care Marketing Automation Manager Name Role Phone Jagruti Ivy Thayerberly Primary Care Provider Reason for Visit * Reason Onset Date Comments Medication Refill 12/31/2022 Encounter Details Date Type Department Care Team Description 12/31/2022 Refill Gastroenterology, [facility] [address] [facility] [place] [address] Vianey Ludwig CRNP [address] [facility] [place] [address] Allergies Active Allergy Reactions Severity Noted Date Comments Penicillins 10/25/2001 Doesn't know. As a baby Other reaction(s): CHILDHOOD ALLERGY-UNKNOWN documented as of this encounter (statuses as of 01/03/2023) Medications Medication Sig Dispensed Refills Start Date End Date Status econazole nitrate (SPECTAZOLE) 1 % cream Apply to affected area twice a day on feet 15 g 0 0 Active Ondansetron 4 MG Oral Tablet Disintegrating (Zofran)Indications: Diverticulitis of colon with perforation Place 1 Tablet on tongue every 8 hours as needed for Nausea. dissolve on tongue. 30 Tablet 1 3 Active Warfarin Sodium 5 MG Oral Tablet (Coumadin)Indication s:Heterozygous factor V Leiden mutation (HCC),Warfarin anticoagulation TAKE 1 TABLET DAILY OR DIRECTED BY ANTICOAGULANT CLINIC 120 Tablet 1 3 Active Dicyclomine HCl 10 MG Oral Capsule (Bentyl) Take 1 Capsule by mouth 3 times a day as needed for Cramping. 270 Capsule 0 3 Active Dicyclomine HCl 10 MG Oral Capsule (Bentyl) Take 1 Capsule by mouth 3 times a day as needed for Cramping. 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 1 08/10/2012 Overview: ICD-10 update of inactive term Pulmonary embolus 02/26/2010 08/10/2012 Overview: Associated with Factor V Leiden heterozygous FACTOR V LEIDEN 02/26/2010 11/18/2014 Overview: one copy of R506Q mutation, 4-8 fold risk for thrombosis AC MAXILLARY SINUSITIS, LEFT 01/15/2006 Cough 01/15/2006 03/07/2010 documented as of this encounter (statuses as of 01/03/2023) Immunizations Name Administration Dates Next Due COVID-19 mRNA, LNP-s, No Pre serve, 2-Dose Series (Pfizer) 04/29/2021,09/03/2020,08/13/2020 Seasonal Influenza, PF, 6 mo ns & Above, IM , (Flulaval) 01/20/2022,02/11/2021,05/25/2019 Seasonal Influenza, Quadriva lent, No Preserve, [...] encounter Miscellaneous Notes * Telephone Encounter - SOTERO Baez - 01/03/2023 12:28 PM EDT Signed Prescriptions: Disp Refills Dicyclomine HCl 10 MG Oral Capsule (Bentyl)270 Ca*0 Sig: Take 1 Capsule by mouth 3 times a day as needed for Cramping. Authorizing Provider: VIANEY LUDWIG * Telephone Encounter - Rosanne August LPN - 12/31/2022 3:24 PM EDT Recieved fax from pharmacy. Pharmacy asking for a 90 day supply Did you pend patient's preferred pharmacy and medication before forwarding?yes Pharmacy: [id number] [address] [facility] Pending Prescriptions: Disp Refills Dicyclomine HCl 10 MG Oral Capsule (Benty*270 Ca*0 Sig: Take 1 Capsule by mouth 3 times a day as needed for Cramping. Last Visit: 12/13/2022 (in office), Visit date not found (telemedicine) Next Visit: Visit date not found If no future appointments scheduled, and last appointment is greater than a year ago, please schedule patient for a follow-up appointment Last date the medication was ordered:12/13/2022 Is this request for a controlled substance?No Urine Drug Screen:No results found for this or any previous visit. Patient Phone Numbers Labs: Lab Results Component Value Date/Time CREAT 1.1 11/23/2021 11:00 AM CREAT 1.0 11/26/2014 01:12 PM POTASSIUM 4.7 11/23/2021 11:00 AM POTASSIUM 4.4 11/26/2014 01:12 PM LDLCALC 63 09/23/2010 07:08 AM ALT 23 12/13/2014 07:12 AM HGBA1C 5.5 12/13/2014 07:12 AM documented in this encounter Plan of Treatment Upcoming Encounters Date Type Specialty Care Team Description 01/10/2023 Anticoagulation Pharmacy Pharmacist1, [facility] [address] [facility] [facility] [place] [address] Scheduled Procedures Name Priority Associated Diagnoses Date/Ti me COLONOSCOPY FLEXIBLE PROXIMAL DIAGNOSTIC Recall History of colon polyps Health Maintenance Due Date Last Done Comments Hepatitis B (1 of 3 - 3-dose series) 1968 Hepatitis C Screening 1986 Lipid Panel 09/24/2015 09/23/2010 Zoster Vaccines (1 of 2) 2018 Depression Screening, Annual for Pts 12 and Over 05/25/2020 05/25/2019 COVID-19 Vaccine (4 - Pfizer series) 06/24/2021 04/29/2021, 09/03/2020, 08/13/2020 Influenza Vaccine (FLU shot) [...] this encounter Medical Devices Implanted Type Area Fuel Yard Operator Device Identifier Shelf Expiration Date Model / Serial / Lot Mesh 3dmax 3.1x5.3in t Med - [id number] Implanted:Qty: 1 on 12/04/2021 by Dima Rhodes MD at OR [facility] Right: Groin CR BARD : DAVOL 07/13/2026 [id number] / / [id number] documented as of this encounter Advance Directives [...] and were consensually agreed upon. Care Teams Marketing Automation Manager Relationship Specialty Start Date End Date Ivy Chand DO [address] [place] [address] PCP - General Family Medicine 10/20/16 documented as of this encounter
--- OUTSIDE RECORDS SUMMARY | 2023-06-30 07:02 | External Medical Summary | Summary of Care ---
Author Name Unknown Organization [facility] Address [address] [place] [address] Phone [phone] Care Team Providers Care Curtain Fitter Name Role Phone Jagruti Ivy Bangura DO Primary Care Provider Reason for Visit * Reason Comments Dosage Adjustment In Person (Anticoag Cl inic) Encounter Details Date Type Department Care Team Description 01/10/2023 Anticoagulation Pharmacy, [facility] 200 [facility] [place] [address] Pharmacist1, [facility] [address] [facility] [place] [address] History of pulmonary embolism*; Heterozygous factor V Leiden mutation (HCC) Allergies Active Allergy Reactions Severity Noted Date Comments Penicillins 10/25/2001 Doesn't know. As a baby Other reaction(s): CHILDHOOD ALLERGY-UNKNOWN documented as of this encounter (statuses as of 01/10/2023) Medications Medication Sig Dispensed Refills Start Date [...] as of this encounter (statuses as of 01/10/2023) Active Problems Problem Noted Date Acute embolism [...] as of this encounter (statuses as of 01/10/2023) Resolved Problems Problem Noted Date Resolved Date H/O deep vein thrombophlebitis of lower extremit y 02/23/2017 02/23/2017 DVT, recurrent, lower extremity, acute 5 01/20/2022 Overview: RIGHT DVT (deep venous thrombosis) (aka DVT (DEEP VENOUS THROMBOSIS)) 11/18/2014 12/18/2014 Iatrogenic pulmonary embolism and infarction 12/18/2014 Anticoagulation management encounter 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 1 08/10/2012 Overview: ICD-10 update of inactive term Pulmonary embolus 02/26/2010 08/10/2012 Overview: Associated with Factor V Leiden heterozygous FACTOR V LEIDEN 02/26/2010 11/18/2014 Overview: one copy of R506Q mutation, 4-8 fold risk for thrombosis AC MAXILLARY SINUSITIS, LEFT 01/15/2006 Cough 01/15/2006 03/07/2010 documented as of this encounter (statuses as of 01/10/2023) Immunizations Name Administration Dates Next Due COVID-19 mRNA, LNP-s, No Pre serve, 2-Dose Series ([employer]) 04/29/2021,09/03/2020,08/13/2020 Seasonal Influenza, PF, 6 mo ns [...] of this encounter Progress Notes * Esteban Salgado RPh - 01/10/2023 9:00 AM EDT There are no phone numbers on file. Agree with plan as documented. Esteban Dee RPh, CACP, CDE Clinical Pharmacist Medication Therapy Management [facility] 01/10/2023 9:00 AM documented in this encounter Plan of Treatment Upcoming Encounters Date Type Specialty Care Team Description 01/25/2023 Anticoagulation Pharmacy Pharmacist1, [facility] [address] [place] [address] Scheduled Procedures Name Priority Associated Diagnoses [...] this encounter Medical Devices Implanted Type Area Traffic Observer Device Identifier Shelf Expiration Date Model / Serial / Lot Mesh 3dmax 3.1x5.3in t Med - [id number] Implanted:Qty: 1 on 12/04/2021 by Dima Rhodes MD at OR [facility] Right: Groin CR BARD : DAVOL 07/13/2026 [id number] / / [id number] documented as of this encounter Procedures Procedure Name Priority Date/Time Associated Diagnosis Comments INR FINGERSTICK, POINT OF CARE GREGG 01/10/2023 8:31 AM EDT documented in this encounter Results * INR FINGERSTICK, POINT OF CARE (01/10/2023 8:31 AM EDT) Fingerstick INR 1.9 INR 8:37 AM EDT [facility] 56- Blood 01/10/2023 8:31 AM EDT 01/10/2023 8:37 AM EDT Narrative [facility] 56-02 - 01/10/2023 8:37 AM EDT Therapeutic ranges for non-operative patients: Prophylaxsis/treatment of DVT: (Range:2.0-3.0) Treatment of pulmonary embolism:(Range:2.0-3.0) Prevention of systemic embolism from: -tissue heart valves -acute myocardial infarction -valvular heart disease -atrial fibrillation (Range: 2.0-3.0) Mechanical prosthetic valves: (Range: 2.5-3.5) [facility] Pharmacist1 LAB POINT OF C ARE TEST DOCKED DEVICE UNSOLICITED RESULTS [facility] [address] [facility] [address] documented in this encounter Visit Diagnoses Diagnosis [...] and were consensually agreed upon. Care Teams Curtain Fitter Relationship Specialty Start Date End Date Ivy Chand DO 200 [facility] [place] [address] PCP - General Family Medicine 10/20/16 documented as of this encounter
--- OUTSIDE RECORDS SUMMARY | 2023-06-30 07:02 | External Medical Summary | Summary of Care ---
Author Name Unknown Organization [facility] Address [address] [place] [address] Phone [phone] Care Team Providers Care Coreroom Foundry Laborer Name Role Phone Angelitoivy Ivy Thayerberly Primary Care Provider Reason for Visit * Reason Comments Appointment Encounter Details Date Type Department Care Team (Latest Contact Info) Description 03/08/2023 6:10 PM EDT Anticoagulation Pharmacy, [facility] [address] [place] [address] Pharmacist1, [facility] [address] [place] [address] Anticoagulation management encounter* Allergies Active Allergy Reactions Criticality Noted Date Comments Penicillins 10/25/2001 Doesn't know. As a baby Other reaction(s): CHILDHOOD ALLERGY-UNKNOWN documented as of this encounter (statuses as of 03/08/2023) Medications Medication Sig Dispensed Refills Start Date [...] as of this encounter (statuses as of 03/08/2023) Active Problems Problem Noted Date Diagnosed Date [...] as of this encounter (statuses as of 03/08/2023) Resolved Problems Problem Noted Date Diagnosed Date Resolved Date H/O deep vein thrombophlebit is of lower extremity 02/23/2017 02/23/2017 DVT, recurrent, lower extremity, acute 11/20/2014 01/20/2022 Overview: RIGHT DVT (deep venous thrombosis) (aka DVT (DEEP VENOUS THROMBOSIS)) 11/18/2014 12/18/2014 Iatrogenic pulmonary embolism and infarction 0 12/18/2014 Anticoagulation management encounter 03/02/2010 08/10/2012 skilled nursing current use of ant icoagulant therapy 03/02/2010 08/10/2012 Overview: ICD-10 update of inactive term Pulmonary embolus 02/26/2010 08/10/2012 Overview: Associated with Factor V Leiden heterozygous FACTOR V LEIDEN 02/26/2010 11/18/2014 Overview: one copy of R506Q mutation, 4-8 fold risk for thrombosis AC MAXILLARY SINUSITIS, LEFT 01/15/2006 03/07/2010 Cough 01/15/2006 03/07/2010 documented as of this encounter (statuses as of 03/08/2023) Immunizations Name Administration Dates Next Due COVID-19 mRNA, LNP-s, No Pre serve, 2-Dose Series ([employer]) 04/29/2021,09/03/2020,08/13/2020 SEASONAL INFLUENZA, PF, 6 M & [...] this encounter Progress Notes * KEELEY Macario Tech - 03/08/2023 10:05 AM EDT Patient Phone Numbers Left message on patients answering machine to schedule [facility] appointment for coag management. [facility] message sent --no Clinic will follow up again in 2-3 week(s). Thank you, Anahi Yang Environmental Analyst [facility] ([facility]) 03/08/2023,10:05 AM documented in this encounter Plan of Treatment Upcoming Encounters Date Type Department Care Team (Late st Contact Info) Description 03/23/2023 6:10 PM EST Anticoagulation Pharmacy, [facility] [place] 200 [facility] [place] [address] Pharmacist1, [facility] 200 [facility] [place] [address] Scheduled Procedures Name Priority Associated Diagnoses Date/Ti me COLONOSCOPY FLEXIBLE PROXIMAL DIAGNOSTIC Recall History of colon polyps Health Maintenance Due Date Last Done Comments Hepatitis B (1 of 3 - 3-dose series) 1968 Hepatitis C Screening 1986 Lipid Panel 09/24/2015 09/23/2010 Zoster Vaccines (1 of 2) 2018 Depression Screening 05/25/2020 05/25/2019 COVID-19 Vaccine ( season) 2023 04/29/2021, 09/03/2020, 08/13/2020 Influenza Vaccine [...] this encounter Medical Devices Implanted Type Area Hat Cone Inspector Device Identifier Shelf Expiration Date Model / Serial / Lot Mesh 3dmax 3.1x5.3in t Med - [id number] Implanted:Qty: 1 on 12/04/2021 by Dima Rhodes MD at OR [facility] Right: Deon RAMSEY BARD : DAVOL 07/13/2026 [id number] / / [id number] documented as of this encounter Visit Diagnoses [...] and were consensually agreed upon. Care Teams Coreroom Foundry Laborer Relationship Specialty Start Date End Date Ivy Chand DO [address] [place] [address] PCP - General Family Medicine 10/20/16 documented as of this encounter
--- OUTSIDE RECORDS SUMMARY | 2023-06-30 07:02 | External Medical Summary | Summary of Care ---
Author Name Unknown Organization [facility] Address [address] [place] [address] Phone [phone] Care Team Providers Care Offal Trimmer Name Role Phone Jagruti Ivy Bangura DO Primary Care Provider Reason for Visit * Reason Comments Appointment Encounter Details Date Type Department Care Team Description 02/07/2023 Anticoagulation Pharmacy, [facility] 200 [place] [address] Pharmacist1, [facility] 200 [place] [address] History of pulmonary embolism*; Heterozygous factor V Leiden mutation (HCC) Allergies Active Allergy Reactions Severity Noted Date Comments Penicillins 10/25/2001 Doesn't know. As a baby Other reaction(s): CHILDHOOD ALLERGY-UNKNOWN documented as of this encounter (statuses as of 02/07/2023) Medications Medication Sig Dispensed Refills Start Date [...] as of this encounter (statuses as of 02/07/2023) Active Problems Problem Noted Date Acute embolism [...] as of this encounter (statuses as of 02/07/2023) Resolved Problems Problem Noted Date Resolved Date H/O deep vein thrombophlebitis of lower extremit y 02/23/2017 02/23/2017 DVT, recurrent, lower extremity, acute 5 01/20/2022 Overview: RIGHT DVT (deep venous thrombosis) (aka DVT (DEEP VENOUS THROMBOSIS)) 11/18/2014 12/18/2014 Iatrogenic pulmonary embolism and infarction 12/18/2014 Anticoagulation management encounter 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 1 08/10/2012 Overview: ICD-10 update of inactive term Pulmonary embolus 02/26/2010 08/10/2012 Overview: Associated with Factor V Leiden heterozygous FACTOR V LEIDEN 02/26/2010 11/18/2014 Overview: one copy of R506Q mutation, 4-8 fold risk for thrombosis AC MAXILLARY SINUSITIS, LEFT 01/15/2006 Cough 01/15/2006 03/07/2010 documented as of this encounter (statuses as of 02/07/2023) Immunizations Name Administration Dates Next Due COVID-19 mRNA, LNP-s, No Pre serve, 2-Dose Series ([employer]) 04/29/2021,09/03/2020,08/13/2020 Seasonal Influenza, PF, 6 mo ns [...] of this encounter Progress Notes * KEELEY David - 02/07/2023 8:38 AM EDT Patient Phone Numbers Left message on patients answering machine to schedule [facility] appointment for anticoagulation management. [facility] message sent --no Clinic will follow up again in 1 week(s). [Attempt # N/A] Thank you, Lupis Ramos Senior Site Manager [facility] ([facility]) (formerly Telepharmacy) [phone] 02/07/2023,8:38 AM documented in this encounter Plan of Treatment Upcoming Encounters Date Type Specialty Care Team Description 02/14/2023 Anticoagulation Pharmacy Pharmacist1, [facility] [address] [place] [address] Scheduled Procedures Name Priority Associated Diagnoses Date/Ti me COLONOSCOPY FLEXIBLE PROXIMAL DIAGNOSTIC Recall History of colon polyps Health Maintenance Due Date Last Done Comments Hepatitis B (1 of 3 - 3-dose series) 1970 Hepatitis C Screening 1986 Lipid Panel 09/24/2015 09/23/2010 Zoster Vaccines (1 of 2) 2018 Depression Screening 05/25/2020 05/25/2019 COVID-19 Vaccine (4 - Pfizer [...] this encounter Medical Devices Implanted Type Area Bias Cutter Device Identifier Shelf Expiration Date Model / Serial / Lot Mesh 3dmax 3.1x5.3in t Med - [id number] Implanted:Qty: 1 on 12/04/2021 by Dima Rhodes MD at OR [facility] Right: Groin CR BARD : DAVOL 07/13/2026 [id number] / / [id number] documented as of this encounter Visit Diagnoses [...] and were consensually agreed upon. Care Teams Offal Trimmer Relationship Specialty Start Date End Date Ivy Chand DO 200 [place] [address] PCP - General Family Medicine 10/20/16 documented as of this encounter
--- OUTSIDE RECORDS SUMMARY | 2023-06-30 07:02 | External Medical Summary ---
Author Name Unknown Address Unknown Organization K09:[facility] [place] [id number] Laboratory Report Ordering Provider Test Date Status ISHAAN BAUMANN1 01/10/2023 08:31:44 Final Therapeutic ranges for non-o perative patients:
Prophylaxsis/treatment of DVT: (Range:2.0-3.0)
Treatment of pulmonary embolism:(Range:2.0-3.0)
Prevention of systemic embolism from:
-tissue heart valves
-acute myocardial infarction
-valvular heart disease
-atrial fibrillation
(Range: 2.0-3.0)
Mechanical prosthetic valves: (Range: 2.5-3.5) Observation Date Value Abnormality Reference (Units ) Status INR in Capillary blood by Coagulation assay 01/10/2023 08:31:44 1.9 (INR) Final Performing Location [facility] [place] [id number]
--- OUTSIDE RECORDS SUMMARY | 2023-06-30 07:02 | External Medical Summary | Summary of Care ---
Author Name Unknown Organization [facility] Address [address] [place] [address] Phone [phone] Care Team Providers Care Pilot Plant Operator Name Role Phone Ivy Chand DO Primary Care Provider Reason for Visit * Reason Comments Dosage Adjustment Via Phone (anticoag Cl inic) Encounter Details Date Type Department Care Team (Latest Contact Info) Description 04/25/2023 6:10 PM EST Anticoagulation Pharmacy, [facility] 200 [place] [address] Pharmacist1, [facility] 200 [place] [address] History of pulmonary embolism*; Heterozygous factor V Leiden mutation (HCC) Allergies Active Allergy Reactions Criticality Noted Date Comments Penicillins 10/25/2001 Doesn't know. As a baby Other reaction(s): CHILDHOOD ALLERGY-UNKNOWN documented as of this encounter (statuses as of 04/25/2023) Medications Medication Sig Dispensed Refills Start Date [...] as of this encounter (statuses as of 04/25/2023) Active Problems Problem Noted Date Diagnosed Date [...] as of this encounter (statuses as of 04/25/2023) Resolved Problems Problem Noted Date Diagnosed Date Resolved Date H/O deep vein thrombophlebit is of lower extremity 02/23/2017 02/23/2017 DVT, recurrent, lower extremity, acute 11/20/2014 01/20/2022 Overview: RIGHT DVT (deep venous thrombosis) (aka DVT (DEEP VENOUS THROMBOSIS)) 11/18/2014 12/18/2014 Iatrogenic pulmonary embolism and infarction 0 12/18/2014 Anticoagulation management encounter 03/02/2010 08/10/2012 [facility] current use of ant icoagulant therapy 03/02/2010 08/10/2012 Overview: ICD-10 update of inactive term Pulmonary embolus 02/26/2010 08/10/2012 Overview: Associated with Factor V Leiden heterozygous FACTOR V LEIDEN 02/26/2010 11/18/2014 Overview: one copy of R506Q mutation, 4-8 fold risk for thrombosis AC MAXILLARY SINUSITIS, LEFT 01/15/2006 03/07/2010 Cough 01/15/2006 03/07/2010 documented as of this encounter (statuses as of 04/25/2023) Immunizations Name Administration Dates Next Due COVID-19 [...] this encounter Progress Notes * Rhina Francois, investigator operator - 04/25/2023 8:39 AM EST Patient Phone Numbers Left message on patients answering machine to schedule [facility] appointment for coag management. [facility] message sent --no Clinic will follow up again in 1 week(s). Thank you, Rhina Francois Adhesion Tester [facility] ([facility]) (Formerly Telepharmacy) 04/25/2023, 8:41 AM documented in this encounter Plan of Treatment Upcoming Encounters Date Type Department Care Team (Late st Contact Info) Description 05/03/2023 6:10 PM EST Anticoagulation Pharmacy, [facility] [place] 200 [facility] [place] [address] Pharmacist1, [facility] [address] [facility] [place] [address] Scheduled Procedures Name Priority Associated Diagnoses Date/Ti [...] this encounter Medical Devices Implanted Type Area Fondant Machine Operator Device Identifier Shelf Expiration Date Model / Serial / Lot Mesh 3dmax 3.1x5.3in t Med - [id number] Implanted:Qty: 1 on 12/04/2021 by Dima Rhodes MD at OR [facility] Right: Groin CR BARD : DAVOL 07/13/2026 [id number] / / [id number] documented as of this encounter Visit Diagnoses [...] and were consensually agreed upon. Care Teams Pilot Plant Operator Relationship Specialty Start Date End Date Ivy Chand DO [address] [place] [address] PCP - General Family Medicine 10/20/16 documented as of this encounter
--- OUTSIDE RECORDS SUMMARY | 2023-06-30 07:02 | External Medical Summary | Summary of Care ---
Author Name Unknown Organization [facility] Address [address] , [place] Care Team Providers Care Lab Coordinator Name Role Phone Segundo Chand DO Primary Care Provider Reason for Visit * Reason Onset Date Comments Medication Refill 03/11/2023 Encounter Details Date Type Department Care Team (Late st Contact Info) Description 03/11/2023 Refill Pharmacy, [facility] [place] [address] [facility] [place] [address] Pharmacist1, [facility] [address] [facility] [facility] [address] Heterozygous factor V Leiden mutation (HCC); Warfarin anticoagulation Allergies Active Allergy Reactions Criticality Noted Date Comments Penicillins 10/25/2001 Doesn't know. As a baby Other reaction(s): CHILDHOOD ALLERGY-UNKNOWN documented as of this encounter (statuses as of 03/11/2023) Medications Medication Sig Dispensed Refills Start Date End Date Status econazole nitrate (SPECTAZOLE) 1 % cream Apply to affected area twice a day on feet 15 g 0 0 Active Ondansetron 4 MG Oral Tablet Disintegrating (Zofran)Indications :Diverticulitis of colon with perforation Place 1 Tablet on tongue every 8 hours as needed for Nausea. dissolve on tongue. 30 Tablet 1 3 Active Dicyclomine HCl 10 MG Oral Capsule (Bentyl) Take 1 Capsule by mouth 3 times a day as needed for Cramping. 270 Capsule 0 3 Active Warfarin Sodium 5 MG Oral Tablet (Coumadin)Indicatio ns:Heterozygous factor V Leiden mutation (HCC),Warfarin anticoagulation Take 7.5mg (1 2 tablets) Sun & Thur; 5mg (1 tablet) all other days OR DIRECTED BY ANTICOAGULATION CLINIC 110 Tablet 3 3 Active Warfarin Sodium 5 MG Oral Tablet (Coumadin)Indicatio ns:Heterozygous factor V Leiden mutation (HCC),Warfarin anticoagulation TAKE 1 TABLET DAILY OR DIRECTED BY ANTICOAGULANT CLINIC 120 Tablet 1 3 03/11/20 23 Discontin ued(Refil l) documented as of this encounter (statuses as of 03/11/2023) Active Problems Problem Noted Date Diagnosed Date [...] as of this encounter (statuses as of 03/11/2023) Resolved Problems Problem Noted Date Diagnosed Date Resolved Date H/O deep vein thrombophlebit is of lower extremity 02/23/2017 02/23/2017 DVT, recurrent, lower extremity, acute 11/20/2014 01/20/2022 Overview: RIGHT DVT (deep venous thrombosis) (aka DVT (DEEP VENOUS THROMBOSIS)) 11/18/2014 12/18/2014 Iatrogenic pulmonary embolism and infarction 0 12/18/2014 Anticoagulation management encounter 03/02/2010 08/10/2012 retirement current use of ant icoagulant therapy 03/02/2010 08/10/2012 Overview: ICD-10 update of inactive term Pulmonary embolus 02/26/2010 08/10/2012 Overview: Associated with Factor V Leiden heterozygous FACTOR V LEIDEN 02/26/2010 11/18/2014 Overview: one copy of R506Q mutation, 4-8 fold risk for thrombosis AC MAXILLARY SINUSITIS, LEFT 01/15/2006 03/07/2010 Cough 01/15/2006 03/07/2010 documented as of this encounter (statuses as of 03/11/2023) Immunizations Name Administration Dates Next Due COVID-19 [...] encounter Miscellaneous Notes * Telephone Encounter - Kathleen George RP - 03/11/2023 1:47 PM EDTSigned Prescriptions: Disp Refills Warfarin Sodium 5 MG Oral Tablet (Coumadin)110 Ta*3 Sig: Take 7.5mg (1 1/2 tablets) Sun & Thur; 5mg (1 tablet) all other days OR DIRECTED BY ANTICOAGULATIONCLINICAuthorizing Provider: SEGUNDO CHAND User: KATHLEEN TRUONG V * Telephone Encounter - Mandi Gonzales, locomotive repairer diesel - 03/11/2023 1:43 PM EDT Pending Prescriptions: Disp Refills Warfarin Sodium 5 MG Oral Tablet (Coumadi*120 Ta*1 Sig: TAKE 1 TABLET DAILY OR DIRECTED BY ANTICOAGULANT CLINIC Last Visit: Visit date not found (in office), Visit date not found (telemedicine) Next Visit: Visit date not found If no future appointments scheduled, and last appointment is greater than a year ago, please schedule patient for a follow-up appointment Last date the medication was ordered: 12/12/2022 Pharmacy: [id number] Is this request for a controlled substance? No. Urine Drug Screen:No results found for this [...] Care Team (Late st Contact Info) Description 03/15/2023 8:20 AM EDT Anticoagulation Pharmacy, [employer] [address] [facility] [place] [address] Pharmacist1, [facility] [address] [facility] [place] [address] Scheduled Procedures Name Priority Associated Diagnoses Date/Ti [...] this encounter Medical Devices Implanted Type Area Assistant General Manager Device Identifier Shelf Expiration Date Model / Serial / Lot Mesh 3dmax 3.1x5.3in t Med - [id number] Implanted:Qty: 1 on 12/04/2021 by Dima Rhodes MD at OR [facility] Right: Groin CR BARD : DAVOL 07/13/2026 [id number] / / [id number] documented as of this encounter Visit Diagnoses Diagnosis Heterozygous factor V Leiden mutation (HCC) Primary hypercoagulable state Warfarin anticoagulation Long-term (current) use of anticoagulants [...] and were consensually agreed upon. Care Teams Lab Coordinator Relationship Specialty Start Date End Date Segundo Chand DO [address] [place] [address] PCP - General Family Medicine 10/20/16 documented as of this encounter
--- OUTSIDE RECORDS SUMMARY | 2023-06-30 07:02 | External Medical Summary | Summary of Care ---
Author Name Unknown Organization [facility] Address [address] [place] [address] Phone [phone] Care Team Providers Care Orderlies Teacher Name Role Phone Jagruti Ivy Bangura DO Primary Care Provider Reason for Visit * Reason Comments Appointment Encounter Details Date Type Department Care Team Description 02/14/2023 Anticoagulation Pharmacy, [facility] [address] [facility] [place] [address] Pharmacist1, [facility] [address] [place] [address] History of pulmonary embolism*; Heterozygous factor V Leiden mutation (HCC) Allergies Active Allergy Reactions Severity Noted Date Comments Penicillins 10/25/2001 Doesn't know. As a baby Other reaction(s): CHILDHOOD ALLERGY-UNKNOWN documented as of this encounter (statuses as of 02/14/2023) Medications Medication Sig Dispensed Refills Start Date [...] as of this encounter (statuses as of 02/14/2023) Active Problems Problem Noted Date Acute embolism [...] as of this encounter (statuses as of 02/14/2023) Resolved Problems Problem Noted Date Resolved Date H/O deep vein thrombophlebitis of lower extremit y 02/23/2017 02/23/2017 DVT, recurrent, lower extremity, acute 5 01/20/2022 Overview: RIGHT DVT (deep venous thrombosis) (aka DVT (DEEP VENOUS THROMBOSIS)) 11/18/2014 12/18/2014 Iatrogenic pulmonary embolism and infarction 12/18/2014 Anticoagulation management encounter 03/02/2010 08/10/2012 FDC current use of anticoagulant therapy 1 08/10/2012 Overview: ICD-10 update of inactive term Pulmonary embolus 02/26/2010 08/10/2012 Overview: Associated with Factor V Leiden heterozygous FACTOR V LEIDEN 02/26/2010 11/18/2014 Overview: one copy of R506Q mutation, 4-8 fold risk for thrombosis AC MAXILLARY SINUSITIS, LEFT 01/15/2006 Cough 01/15/2006 03/07/2010 documented as of this encounter (statuses as of 02/14/2023) Immunizations Name Administration Dates Next Due COVID-19 mRNA, LNP-s, No Pre serve, 2-Dose Series ([employer]) 04/29/2021,09/03/2020,08/13/2020 SEASONAL INFLUENZA, PF, 6 M & [...] of this encounter Progress Notes * KEELEY Benjamin - 02/14/2023 9:26 AM EDT Patient Phone Numbers Left message on patients answering machine to schedule [facility] appointment for coag management. [facility] message sent --no Clinic will follow up again in 1 week(s). Thank you, Rhina Francois Sound Effects Supervisor [facility] ([facility]) (Formerly Telepharmacy) 02/14/2023, 9:26 AM documented in this encounter Plan of Treatment Upcoming Encounters Date Type Specialty Care Team Description 02/21/2023 Anticoagulation Pharmacy Pharmacist1, [facility] [address] [place] [address] Scheduled Procedures Name Priority Associated Diagnoses Date/Ti [...] this encounter Medical Devices Implanted Type Area Retail Security Professional Device Identifier Shelf Expiration Date Model / Serial / Lot Mesh 3dmax 3.1x5.3in t Med - [id number] Implanted:Qty: 1 on 12/04/2021 by Dima Rhodes MD at OR [facility] Right: Groin CR BARD : DAVOL 07/13/2026 [id number] / / [id number] documented as of this encounter Visit Diagnoses [...] and were consensually agreed upon. Care Teams Orderlies Teacher Relationship Specialty Start Date End Date Ivy Chand DO [address] [place] [address] PCP - General Family Medicine 10/20/16 documented as of this encounter
[2023-06-30] MEDS: PHYTONADIONE 2.5 MG in DEXTROSE 5% 50 ML IV ONE (09:00)
--- OUTSIDE RECORDS SUMMARY | 2023-06-30 09:21 | External Medical Summary | Summary of Care ---
Author Name Unknown Organization [facility] Address [address] [place] [address] Phone [phone] Care Team Providers Care Supervisor Marble Name Role Phone Ivy Chand DO Primary Care Provider Reason for Visit * Reason Onset Date Comments Abnormal Test Results 06/29/2023 Encounter Details Date Type Department Care Team (Late st Contact Info) Description 06/29/2023 Telephone General Internal Medicine [facility] [address] [place] [address] Bailey Naqvi MD [address] [place] [address] Abnormal Test Results (/) Allergies Active Allergy Reactions Criticality Noted Date Comments Penicillins 10/25/2001 Doesn't know. As a baby Other reaction(s): CHILDHOOD ALLERGY-UNKNOWN documented as of this encounter (statuses as of 06/29/2023) Medications Medication Sig Dispensed Refills Start Date [...] 24 Active metroNIDAZOLE 500 MG Oral TabletIndications:Ac or[place]ut diverticulitis,Histo ry of diverticulitis Take 1 Tablet by mouth in the morning and 1 Tablet at noon and 1 Tablet before bedtime. Do all this for 10 days. 30 Tablet 0 4 07/02/19 24 Active documented as of this encounter (statuses as of 06/29/2023) Active Problems Problem Noted Date Diagnosed Date [...] as of this encounter (statuses as of 06/29/2023) Resolved Problems Problem Noted Date Diagnosed Date Resolved Date H/O deep vein thrombophlebit is of lower extremity 02/23/2017 02/23/2017 DVT, recurrent, lower extremity, acute 11/20/2014 01/20/2022 Overview: RIGHT DVT (deep venous thrombosis) (aka DVT (DEEP VENOUS THROMBOSIS)) 11/18/2014 12/18/2014 Iatrogenic pulmonary embolism and infarction 0 12/18/2014 Anticoagulation management encounter 03/02/2010 08/10/2012 line patrolman current use of ant icoagulant therapy 03/02/2010 08/10/2012 Overview: ICD-10 update of inactive term Pulmonary embolus 02/26/2010 08/10/2012 Overview: Associated with Factor V Leiden heterozygous FACTOR V LEIDEN 02/26/2010 11/18/2014 Overview: one copy of R506Q mutation, 4-8 fold risk for thrombosis AC MAXILLARY SINUSITIS, LEFT 01/15/2006 03/07/2010 Cough 01/15/2006 03/07/2010 documented as of this encounter (statuses as of 06/29/2023) Immunizations Name Administration Dates Next Due COVID-19 [...] encounter Miscellaneous Notes * Telephone Encounter - Linda Hawthorne LPN - 06/29/2023 1:56 PM EST Attempted to call patient, left another message on voicemail. Spoke to emergency contact, she will get in touch with patient * Telephone Encounter - Carlotta Frank LPN - 06/29/2023 1:31 PM EST Called patient, left message on verified voicemail to return call [facility] regarding test results. * Telephone Encounter - Bailey Naqvi MD - 06/29/2023 1:03 PM EST [place] text received regarding abnormal CT results, called radiologist, he had stepped away, reviewed the report as noted below. IMPRESSION: 1. Colonic diverticulosis with findings concerning for acute diverticulitis in the sigmoid region. 2. Walled-off, irregularly-shaped, peripherally enhancing air and fluid collection in the pelvis measuring approximately 5 x 0 x 6.0 x 4.8 cm, with minimal surrounding inflammatory changes. Findings most likely consistent with an abscess. Possibly arising from adjacent sigmoid diverticulitis. 3. Additional air and fluid collection with no significant surrounding enhancement draping along the anterior margin of the abscess possibly a portion of bowel. 4. A few small bowel loops are abnormally dilated measuring up to 4 cm in diameter with trace fecalization concerning for possible developing obstruction. 5. Minimal free fluid in the dependent portion of the pelvis. Patient Phone Numbers Called pt. on 06/29/2023 at 1:05 PM - left a recorded message for the pt. to call back. Message: CT showing persistent acute diverticulitis sigmoid region with a findings suggestive of anabscess around it and possible developing small bowel obstruction. Recommend to go to ER for evaluation. ----please try reaching patient again, if unable to reach him call his emergency contact. --fax CT and recent labs to the ER documented in this encounter Plan of Treatment Upcoming Encounters Date Type Department Care Team (Late st Contact Info) Description 07/11/2023 8:20 AM EST Anticoagulation Pharmacy, [employer] [address] [facility] [place] [address] Pharmacist1, [facility] [address] [facility] [place] [address] Scheduled Procedures Name Priority Associated Diagnoses Date/Ti [...] this encounter Medical Devices Implanted Type Area Malt House Supervisor Device Identifier Shelf Expiration Date Model / Serial / Lot Mesh 3dmax 3.1x5.3in t Med - [id number] Implanted:Qty: 1 on 12/04/2021 by Dima Rhodes MD at OR [facility] Right: Groin CR BARD : JOB 07/13/2026 [id number] / / [id number] documented as of this encounter Advance Directives [...] and were consensually agreed upon. Care Teams Supervisor Marble Relationship Specialty Start Date End Date Ivy Chand DO [address] [place] [address] PCP - General Family Medicine 10/20/16 documented as of this encounter
--- NOTE | 2023-06-30 13:18 | Hospitalist Progress Note ---
Date of Service June 30, 2023 Assessment & Plan (1) Colonic diverticular abscess: Plan: 53-year-old male with past medical history significant for chronic rhinitis, pulmonary embolism, DVT, heterozygous factor V Leiden mutation, history of diverticulitis presents with ongoing diverticulitis since 1 week and CAT scan shows diverticular abscess. Patient states having symptoms since last 1 week. Started antibiotics last Tuesday Cipro and Flagyl. In the weekends had a fever. He cannot sleep on the left side because the pain. He went to work today and pain was about 5/10 in severity. Currently resting his pain is minimal. Appetite is down. Having normal bowel movements. Denies any blood in the stools. Also had some cold symptoms but that got improved. Has mild runny nose. Denies headache. Has some dizziness. Vision is okay. No sore throat. No cough. No chest pains. No shortness of breath. Currently resting comfortably and hemodynamically stable. Colonic diverticular abscess History of diverticulitis in November 2022 Patient presented to the PCP with abdominal discomfort. CT abdomen and pelvis showed intra-abdominal abscess. CT abdomen as below Colonoscopy 09/01/2022 shows diverticulosis in sigmoid colon. One 5 mm polyp 20 cm proximal to the anus, pathology showing hyperplastic polyp with focal sessile serrated features. CT scan done on 06/27/2023: 1. Colonic diverticulosis with findings concerning for acute diverticulitis in the sigmoid region. 2. Walled-off, irregularly-shaped, peripherally enhancing air and fluid collection in the pelvis measuring approximately 5 x 0 x 6.0 x 4.8 cm, with minimal surrounding inflammatory changes. Findings most likely consistent with an abscess. Possibly arising from adjacent sigmoid diverticulitis. 3. Additional air and fluid collection with no significant surrounding enhancement draping along the anterior margin of the abscess possibly a portion of bowel. 4. A few small bowel loops are abnormally dilated measuring up to 4 cm in diameter with trace fecalization concerning for possible developing obstruction. 5. Minimal free fluid in the dependent portion of the pelvis. Initially, plan was for IR drainage here in the facility. PT/INR was reviewed; vitamin K was given for reversal. Discussion was done with radiologist; loops of bowel present around the abscess which makes it difficult to access for drainage. Discussed with transfer center; images were reviewed by interventional radiology at [facility]. IR drainage is not possible due to loops of bowel present around the abscess. Discussed with general surgery; given that patient is afebrile, nontoxic and with minimal abdominal discomfortplan for IV antibiotics and conservative care with follow-up images in few weeks. Infectious disease consulted On full liquid diet; advance as tolerated History of heterozygous factor V Leiden mutation History of PE in 2009 as per patient History of DVT around 2016 as per patient On Coumadin; vitamin K given for reversal. PT/INR ordered. To be started on Lovenox therapeutic dose if INR is less than 2 DVT prophylaxis SCDs for now On Lovenox Disposition Medical floor; admitted for IV antibiotics for intra-abdominal abscess. Full code Time spent evaluating patient, direct bedside care, chart review, placing orders, interpretation of diagnostic studies, discussion with consultants, patient, and family members, as well as other required patient management activities is 60 minutes Please note the above document was generated using voice recognition software. It may contain grammatical, syntax or spelling errors. Any formal questions or concerns about the content, text or information contained within the body of this dictation should be directly addressed to the provider for clarification Admission and Anticipated Discharge Date Admission Date: June 29, 2023 Subjective Patient seen and examined at bedside. He is sitting up on the bed; not in distress. Reports left lower quadrant abdominal pain on walking symptoms no pain at rest. No nausea, vomiting, fever or chills. Review of Systems Review of Systems: All systems reviewed & are unremarkable except as noted in Subjective Physical Exam Physical Exam: Constitutional: WD/WN, vitals as above, NAD, sitting up in bed, pleasant, conversing easily Respiratory: normal respiratory effort, lungs clear to auscultation, no wheeze, rales, rhonchi. Normal insp/exp effort, no accessory muscle use Cardiovascular: RRR, no murmur, no edema Vessels: no JVD or carotid bruit Chest: normal inspection of chest Abdomen: Soft, nontender. Bowel sound present Musculoskeletal: no cyanosis or clubbing, extremities motor strength 5/5 Skin: no rashes, warm and dry normal turgor Neurologic: PERRL, EOMI, accommodation nl, no face palsy, no dysarthria CN's II- XI intact bilaterally and moves all extremities Psychiatric: A+Ox3, euthymic affect Results & Data Results & Data Vital Signs (Past 12 Hours) Vital Signs Temp Pulse Resp BP Pulse Ox O2 Del Method 06/30/23 07:58 36.9 C 75 16 131/77 97 Room Air
[2023-06-30 14:54] LABS: INR 1.9 (0.9-1.1); Prothrombin Time 19.6 Seconds (9.0-12.0)
--- NOTE | 2023-06-30 16:07 | Surgery Consultation ---
Date of Consultation June 30, 2023 Assessment & Plan (1) Colonic diverticular abscess: Per radiology the abscess is not in a drainable location because of bowel loops . This could be drained laparoscopically however I believe he is doing too well clinically to warrant that. He has almost no pain he is afebrile and normal WBC. My recommendation would be IV antibiotics with conversion to oral. I can see him as an outpatient we will probably repeat CT scan in 3 to 4 weeks to ensure resolution of the abscess. He likely would be a candidate offered elective sigmoid colectomy in the future and we will discuss that once he is over this acute episode. Will continue to follow along while he is in the hospital. (2) Diverticulitis: (3) Factor V Leiden: History of Present Illness Attending Physician: Mukesh Chairez MD History of Present Illness Silvino is a very pleasant 53-year-old male who has had history of acute diverticulitis this past summer in November. He had been fine until this past Tuesday he started having fevers and some abdominal pain. He ended up having an outpatient CT scan which showed acute diverticulitis with microperforation 5 cm abscess. Remarkably he is feeling very well currently. He denies abdominal pain. Allergies Allergy/AdvReac Type Severity Reaction Status Date / Time Penicillins Allergy Unknown CHILDHOOD Verified 06/29/23 19:56 ALLERGY-UNKNOWN Home Medications Medication Instructions Recorded Confirmed Type warfarin 5 mg tablet 2.5 mg PO QAM 11/24/22 06/29/23 History ciprofloxacin HCl 500 mg tablet 500 mg PO AMHS 06/29/23 06/29/23 History metronidazole 500 mg tablet 500 mg PO TID 06/29/23 06/29/23 History Patient History Medical History (Updated 06/29/23 @ 21:03 by Robby Shelley MD) History of pulmonary embolus (PE) Diverticulitis of colon with perforation Factor V Leiden Deep vein thrombosis Surgical History (Updated 12/10/22 @ 09:10 by Amber Floyd RN) H/O hernia repair 11/2021 History of colonoscopy 09/01/22 Family History (Updated 12/10/22 @ 09:12 by Amber Floyd RN) Sister Breast cancer Father Cancer Hypertension Mother Clotting disorder Hypertension Other Family history of factor V Leiden mutation Family history of pancreatic cancer Social History (Updated 12/10/22 @ 09:14 by Amber Floyd RN) Smoking Status: Former smoker Tobacco Type: Cigarettes Smoking End Date: 20years ago, only smoked socially when drinking; Second Hand Exposure: No; Do You Dip or Chew Tobacco: No; Tobacco Cessation Education Requested by Patient: No Hx Alcohol Use: Yes Alcohol type: beer Alcohol Intake Frequency: 4 or More x per/Week Alcohol Intake Frequency Comment: 1-2/day Hx Substance Use: No Preferred Language: Lao Communication Ability: Effective Boiler House Mechanic Required: No Beliefs That Will Affect Care: None marital status: Current Living Situation: Spouse current occupational status: employed 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 How many Children do You have: 2 Other Information That Helps Us Care for You: No Feels Safe at Home: Yes Safety Concerns: Feels Safe At This Time Diet: regular during the past year weight has: remained stable Assistive Devices: Glasses Physical Exam Constitutional: WD/WN, vitals as above no acute distress and not ill appearing Eyes: PERRL, conjunctivae normal, anicteric sclerae EOM intact bilaterally ENMT: external ear and nose normal, oropharynx normal Ears: no hearing impairment Neck: trachea midline, no thyromegaly Respiratory: normal respiratory effort; no respiratory distress and does not use accessory muscles Cardiovascular: Rate/Rhythm: regular rate and regular rhythm Gastrointestinal (Abdomen): Soft. Very mild suprapubic tenderness. No guarding or peritoneal signs Skin: no rashes, warm and dry Psychiatric: Orientation: alert, oriented x 3 and cooperative Results & Data Vital Signs (Past 12 Hours) Vital Signs Temp Pulse Resp BP Pulse Ox O2 Del Method 06/30/23 07:58 36.9 C 75 16 131/77 97 Room Air PG Care Time/CCT Total # of Minutes Spent Total Time Spent with Patient: Total time spent is greater than 50% in coordination of care (as documented) at patient's floor/unit and/or counseling patient: Coding Level of Care Code 47926 IN/OBS CONSULT LVL 3,45M Diagnoses Colonic diverticular abscess K57.20 Diverticulitis K57.92 Factor V Leiden D68.51
[2023-06-30] MEDS: ENOXAPARIN 80 MG/0.8 ML SYR SC SCH (20:30)
[2023-07-01 07:39] LABS: Basophils # (auto) 0.05 K/uL (0.00-0.20); Basophils % (auto) 0.4 %; Eosinophils # (auto) 0.09 K/uL (0.00-0.50); Eosinophils % (auto) 0.7 %; Hematocrit (blood only) 43.5 % (42.0-52.0); Hemoglobin 14.6 g/dl (14.0-18.0); Immature Granulocytes # (auto) 0.08 K/uL (0.01-0.20); Immature Granulocytes % (auto) 0.6 %; Lymphocytes % (auto) 14.6 %; Mean Corpuscular Hemoglobin 30.1 pg (25.0-34.0); Mean Corpuscular Hgb Conc 33.6 g/dL (32.0-36.0); Mean Corpuscular Volume 89.7 fL (80.0-100.0); Mean Platelet Volume 8.4 fL (9.4-12.4); Monocytes # (auto) 1.17 K/uL (0.11-0.59); Monocytes % (auto) 9.5 %; Neutrophils # (auto) 9.17 K/uL (1.40-6.50); Neutrophils % (auto) 74.2 %; Platelet Count 345 K/uL (130-400); RDW Standard Deviation 39.7 fL (36.4-46.3); Red Blood Count 4.85 M/uL (4.70-6.10); White Blood Count 12.36 K/ul (4.8-10.8)
[2023-07-01 07:59] LABS: INR 1.4 (0.9-1.1); Prothrombin Time 14.8 Seconds (9.0-12.0)
[2023-07-01 08:03] LABS: BUN Creatinine Ratio 11.8 (10-20); Calcium 8.6 mg/dl (8.6-10.3); Creatinine Clr Calc Pharmacy 92.9 ml/min; Est GFR (African American) 106.7 ml/min; Est GFR (Non-African American) 92.1 ml/min; Potassium 4.1 mmol/L (3.5-5.1)
--- NOTE | 2023-07-01 13:27 | Surgery Progress Note ---
Date of Service July 01, 2023 Assessment & Plan (1) Colonic diverticular abscess: Plan: Pt here with diverticulitis + abscess not amenable to drainage at this time WBC did uptrend to 12 (9). Vitals are stable and patient is afebrile He is tolerating full liquids He is having some bowel function He feels well, but likely continue fulls and IV abx today yet given slight bump in WBC, recheck CBC yesika as above. doing well clinically. afebrile. no pain currently. gale diet ok to restart coumadin will need to go home on 2-3 weeks of antibiotics. f/u with me in [address] scan in 3-4 weeks to ensure resolution of fluid collection. Admission and Anticipated Discharge Date Admission Date: June 29, 2023 Subjective Patient states he feels about the same as yesterday. Denies much pain, or nausea/vomiting. Had a couple small BMs but felt like he had to force them out. Physical Exam Physical Exam: awake/alert, no distress Respiratory: normal respiratory effort Gastrointestinal (Abdomen): Percussion/Palpation: abdomen soft; abdomen nontender Results & Data Vital Signs (Past 12 Hours) Vital Signs Temp Pulse Resp BP Pulse Ox O2 Del Method 07/01/23 07:20 98.1 F 72 14 123/78 96 Room Air PG Care Time/CCT Total # of Minutes Spent Total Time Spent with Patient: Total time spent is greater than 50% in coordination of care (as documented) at patient's floor/unit and/or counseling patient: Coding Level of Care Code 69712 SUB INP/OBS CARE 06/09MIN Diagnoses Colonic diverticular abscess K57.20
--- NOTE | 2023-07-01 13:40 | Hospitalist Progress Note ---
Date of Service July 01, 2023 Assessment & Plan (1) Colonic diverticular abscess: Plan: 53-year-old male with past medical history significant for chronic rhinitis, pulmonary embolism, DVT, heterozygous factor V Leiden mutation, history of diverticulitis presents with ongoing diverticulitis since 1 week and CAT scan shows diverticular abscess. Patient states having symptoms since last 1 week. Colonic diverticular abscess History of diverticulitis in November 2022 Patient presented to the PCP with abdominal discomfort. CT abdomen and pelvis showed intra-abdominal abscess. CT abdomen as below Colonoscopy 09/01/2022 shows diverticulosis in sigmoid colon. One 5 mm polyp 20 cm proximal to the anus, pathology showing hyperplastic polyp with focal sessile serrated features. CT scan done on 06/27/2023: 1. Colonic diverticulosis with findings concerning for acute diverticulitis in the sigmoid region. 2. Walled-off, irregularly-shaped, peripherally enhancing air and fluid collection in the pelvis measuring approximately 5 x 0 x 6.0 x 4.8 cm, with minimal surrounding inflammatory changes. Findings most likely consistent with an abscess. Possibly arising from adjacent sigmoid diverticulitis. 3. Additional air and fluid collection with no significant surrounding enhancement draping along the anterior margin of the abscess possibly a portion of bowel. 4. A few small bowel loops are abnormally dilated measuring up to 4 cm in diameter with trace fecalization concerning for possible developing obstruction. 5. Minimal free fluid in the dependent portion of the pelvis. Initially, plan was for IR drainage here in the facility. PT/INR on admission was reviewed; vitamin K was given for reversal. Discussion was done with radiologist here and IR at [facility] on June 30, 2023; loops of bowel present around the abscess which makes it difficult to access for drainage. Discussed with general surgery; awaiting further recommendation. Will hold off on Coumadin for the time being Discussed with infectious disease (Dr. Sher(fellow); who discussed with Dr. Worthy)over the phonethey recommend ciprofloxacin and Flagyl till follow-up with general surgery and repeat the scan is done. On full liquid diet; advance as tolerated as per general surgery History of heterozygous factor V Leiden mutation History of PE in 2009 as per patient History of DVT around 2015 as per patient On Coumadin; vitamin K given for reversal. Currently on Lovenox. Coumadin to be resumed if no surgical plans. DVT prophylaxis On Lovenox. Coumadin on hold for the time being Disposition Medical floor; admitted for IV antibiotics for intra-abdominal abscess. Full code Time spent evaluating patient, direct bedside care, chart review, placing orders, interpretation of diagnostic studies, discussion with consultants, patient, and family members, as well as other required patient management activities is 50 minutes Please note the above document was generated using voice recognition software. It may contain grammatical, syntax or spelling errors. Any formal questions or concerns about the content, text or information contained within the body of this dictation should be directly addressed to the provider for clarification Admission and Anticipated Discharge Date Admission Date: June 29, 2023 Subjective Patient seen and examined at bedside. He reports of some lower abdominal discomfort. Multiple loose bowel movements today. Afebrile overnight. Vital stable Review of Systems Review of Systems: All systems reviewed & are unremarkable except as noted in Subjective Physical Exam Physical Exam: Constitutional: WD/WN, vitals as above, NAD, sitting up in bed, pleasant, conversing easily Respiratory: normal respiratory effort, lungs clear to auscultation, no wheeze, rales, rhonchi. Normal insp/exp effort, no accessory muscle use Cardiovascular: RRR, no murmur, no edema Vessels: no JVD or carotid bruit Chest: normal inspection of chest Abdomen: Soft, nontender. Bowel sound present Musculoskeletal: no cyanosis or clubbing, extremities motor strength 5/5 Skin: no rashes, warm and dry normal turgor Neurologic: PERRL, EOMI, accommodation nl, no face palsy, no dysarthria CN's II- XI intact bilaterally and moves all extremities Psychiatric: A+Ox3, euthymic affect Results & Data Results & Data Vital Signs (Past 12 Hours) Vital Signs Temp Pulse Resp BP Pulse Ox O2 Del Method 07/01/23 07:20 36.7 C 72 14 123/78 96 Room Air
[2023-07-01] MEDS: WARFARIN SOD 2.5 MG TAB PO SCH (16:38)
[2023-07-02 06:38] LABS: Basophils # (auto) 0.03 K/uL (0.00-0.20); Basophils % (auto) 0.3 %; Eosinophils # (auto) 0.08 K/uL (0.00-0.50); Eosinophils % (auto) 0.8 %; Hematocrit (blood only) 39.8 % (42.0-52.0); Hemoglobin 13.8 g/dl (14.0-18.0); Immature Granulocytes # (auto) 0.05 K/uL (0.01-0.20); Immature Granulocytes % (auto) 0.5 %; Lymphocytes # (auto) 1.69 K/uL (1.20-3.40); Lymphocytes % (auto) 16.8 %; Mean Corpuscular Hemoglobin 30.8 pg (25.0-34.0); Mean Corpuscular Hgb Conc 34.7 g/dL (32.0-36.0); Mean Corpuscular Volume 88.8 fL (80.0-100.0); Mean Platelet Volume 8.6 fL (9.4-12.4); Monocytes # (auto) 1.07 K/uL (0.11-0.59); Monocytes % (auto) 10.6 %; Neutrophils # (auto) 7.14 K/uL (1.40-6.50); Platelet Count 344 K/uL (130-400); RDW Coefficient of Variation 11.9 % (11.5-14.5); RDW Standard Deviation 38.5 fL (36.4-46.3); Red Blood Count 4.48 M/uL (4.70-6.10); White Blood Count 10.06 K/ul (4.8-10.8)
[2023-07-02 06:51] LABS: BUN Creatinine Ratio 13.1 (10-20); Calcium 8.6 mg/dl (8.6-10.3); Creatinine Clr Calc Pharmacy 87.3 ml/min; Est GFR (Non-African American) 85.4 ml/min; Potassium 4.6 mmol/L (3.5-5.1)
[2023-07-02 06:59] LABS: INR 1.5 (0.9-1.1); Prothrombin Time 15.6 Seconds (9.0-12.0)
--- NOTE | 2023-07-02 16:47 | Discharge Summary ---
Date of Service July 02, 2023 Admission HPI Per Admitting Provider 53-year-old male with past medical history significant for chronic rhinitis, pulmonary embolism, DVT, heterozygous factor V Leiden mutation, history of diverticulitis presents with ongoing diverticulitis since 1 week and CAT scan done today shows diverticular abscess. Patient states having symptoms since last 1 week. Started antibiotics last Tuesday Cipro and Flagyl. In the weekends had a fever. He cannot sleep on the left side because the pain. He went to work today and pain was about 5/10 in severity. Currently resting his pain is minimal. Appetite is down. Having normal bowel movements. Denies any blood in the stools. Also had some cold symptoms but that got improved. Has mild runny nose. Denies headache. Has some dizziness. Vision is okay. No sore throat. No cough. No chest pains. No shortness of breath. Currently resting comfortably and hemodynamically stable. Past medical history. As mentioned above. Past surgical history. Colonoscopy. Dental surgery. Laparoscopic inguinal hernia repair. Social history. . Former smoker. Smoked 0.1 pack a day for 10 years. Alcohol 5 standard drinks of alcohol per week. No drug use. Family history. Father had pancreatic cancer. Admission Exam Per Admitting Provider General- Not in distress. Head- atraumatic Eyes- PERRL. ENT- oropharynx clear Neck- supple, no JVD. Lungs- clear to auscultation no wheezing or crackles. Heart- regular rhythm; no murmur, no gallop. Abdomen- normal bowel sounds, soft, LLQ mild tenderness, no masses, no distension. Extremities- no pretibial edema, no erythema seen. Neuro- alert, oriented x 3; PERRL, EOMI; no facial palsy; no dysarthria; moves extremities. Skin- warm & dry Principal Diagnosis Intra-abdominal abscess Discharge Exam Constitutional: WD/WN, vitals as above, NAD, sitting up in bed, pleasant, conversing easily Respiratory: normal respiratory effort, lungs clear to auscultation, no wheeze, rales, rhonchi. Normal insp/exp effort, no accessory muscle use Cardiovascular: RRR, no murmur, no edema Vessels: no JVD or carotid bruit Chest: normal inspection of chest Abdomen: Soft, nontender. Bowel sound present Musculoskeletal: no cyanosis or clubbing, extremities motor strength 5/5 Skin: no rashes, warm and dry normal turgor Neurologic: PERRL, EOMI, accommodation nl, no face palsy, no dysarthria CN's II- XI intact bilaterally and moves all extremities Psychiatric: A+Ox3, euthymic affect Discharge Data Allergies Allergy/AdvReac Type Severity Reaction Status Date / Time Penicillins Allergy Unknown CHILDHOOD Verified 06/29/23 19:56 ALLERGY-UNKNOWN Consultations 06/29/23 19:38 ED Decision to Admit Stat 06/30/23 07:36 Consult General Surgery Routine 06/30/23 10:36 Consult Infectious Diseases Routine Hospital Course (1) Colonic diverticular abscess: 53-year-old male with past medical history significant for chronic rhinitis, pulmonary embolism, DVT, heterozygous factor V Leiden mutation, history of diverticulitis presents with ongoing diverticulitis since 1 week and CAT scan shows diverticular abscess. Patient states having symptoms since last 1 week. Colonic diverticular abscess Sigmoid diverticulitis Patient presented to the PCP with abdominal discomfort. CT abdomen and pelvis showed intra-abdominal abscess measuring 5 into 6 into 4.8 cm abscess arising from sigmoid diverticulitis. Hospital course; Initially, plan was for IR drainage here in the facility. PT/INR on admission was reviewed; vitamin K was given for reversal. Discussion was done with radiologist here and IR at [facility] on June 30, 2023; loops of bowel present around the abscess which makes it difficult to access for drainage. Discussed with infectious disease (Dr. Sher(fellow); who discussed with Dr. Worthy)over the phonethey recommend ciprofloxacin and Flagyl till follow-up with general surgery and repeat the scan is done. Discussed with Dr. Jones from general surgery; he recommended oral anti biotics till follow-up with him as outpatient in 3 weeks. Plan is to repeat imaging; possible drainage/surgery if abscess is persistent present or increase in size. At discharge, patient was tolerating low fiber diet. He was prescribed 3 weeks of ciprofloxacin and Flagyl. Instructions regarding follow-up with surgery and PCP to were given. His dose of Coumadin was decreased to 30%(total dose) to 4 mg every day as patient is going to be on Flagyl which will slow down the metabolism of Coumadin. Patient was recommended to return back to hospital if he has persistent abdominal pain, fever/chill, dizziness, nausea/vomiting. Patient verbalized understanding. Please note the above document was generated using voice recognition software. It may contain grammatical, syntax or spelling errors. Any formal questions or concerns about the content, text or information contained within the body of this dictation should be directly addressed to the provider for clarification Total Time Total Time Spent Total Time Spent (In Minutes): 45 Total Time Includes: Examination of the Patient, Discharge Planning, Medication Reconciliation, Communication With Other Providers and Other Discharge Plan Discharge Items Patient Disposition: Home - Self-Care Reason For Visit: DIVERTICULAR ABSCESS Discharge Diagnosis: Diverticular abscess Activity: Resume your previous activity Non-emergency contact: Primary Care Provider Call non-emergency contact if: you have any medication questions and your sympto ms worsen Follow-up/Referrals: Cornel Jones DO [Surgeon] - 07/20/23 1:00 pm () Ivy Chand DO [Primary Care Provider] - (Date & Time 07/08/2023 1:40 PM Provider Ivy Chand DO Department [facility] ) Diet: Low Fiber Addtl Attending Provider Instructions: You were admitted to the hospital due to diverticular abscess. The CT abdomen and pelvis images were reviewed by the radiologist here and at [facility]. As per them, the loops of bowel were around the abscess; so it could not be drained safely. You were seen by Dr. Jones from general surgery during the hospitalization. He recommended oral antibiotics for 3 weeks till you see him as outpatient. An appointment has been set up for you on July 20, 2023 at 1 PM. You were prescribed ciprofloxacin 500 mg twice daily and Flagyl 500 mg 3 times daily for 3 weeks. The duration of antibiotic will depend on the repeat imaging done by Dr. Jones on the follow-up. You might need further drainage and intervention for the abscess. Flagyl is known to slow down the metabolism of Coumadin which can lead to elevated PT/INR. You have been prescribed 2 mg tablets of Coumadin. Please take 4 mg of Coumadin every day to start with; please follow-up with anticoagulation clinic next week to have your PT/INR checked. You also have an appointment set up with your primary care doctor on July 08, 2023; PT/INR can be checked then. The dosing adjustments should be made on the results. You can also discuss with your primary care doctor about switching you over to other blood thinners (Eliquis/ Xarelto). If you start experience severe abdominal pain, fever/chills, nausea/vomiting, bloody diarrhea, severe dizziness; please contact medical provider or go to the nearest hospital. Pending Studies at Discharge: No Stand-Alone Forms: My [facility], Smoking Cessation Medications and DC Order Prescriptions: New warfarin 2 mg tablet 4 mg PO DAILY Qty: 60 0RF Probiotic 3 billion cell capsule 3,000 mmu cells PO DAILY Qty: 30 0RF Rx Instructions: administer with a meal Continued metronidazole 500 mg tablet 500 mg PO TID 21 Days Qty: 63 0RF ciprofloxacin HCl 500 mg tablet 500 mg PO AMHS 21 Days Qty: 42 0RF Discontinued warfarin 5 mg tablet 2.5 mg PO QAM Discharge Orders: Discharge Order (Routine); Ordered 07/02/23 Ordered By: Mukesh Chairez Admission Data Admit Date/Time: 06/29/23 20:55 Attending Provider: Mukesh Chairez Admit Provider: Robby Shelley Primary Care Provider: Ivy Chand Other Providers: Robby Shelley; Amanuel Sahu; Silvino Rodney; Bette Trujillo; Kevin Merino; Dima Rhodes; Alba Carpenter; Dora Osborne; Zeeshan Honeycutt Jr; Christiano Germain; Cornel Concepcion; Yuni Olivas; Wilfredo Calvert; Trevor Aguero; Jameson Cheema I.; Fredrick Kraus II; Ines Worthy; Silvino Spivey; Zeeshan Estrada; Alexa Cobb; Tray Sher Other Interventions: Discharge Summary Assessment (RN) Last Done: 07/02/23 12:20
--- NOTE | 2023-07-03 07:41 | Electrocardiogram Report ---
Test Reason : Blood Pressure : / mmHG Vent. Rate : 079 BPM Atrial Rate : 340 BPM P-R Int : 000 ms QRS Dur : 166 ms QT Int : 388 ms P-R-T Axes : 082 030 041 degrees QTc Int : 444 ms Poor data quality, interpretation may be adversely affected Sinus rhythm Probably normal When compared with ECG of 26-FEB-2010 18:00, No significant change Confirmed by Hesham Griffiths ([id number]) on 07/03/2023 7:41:35 AM Referred By: Bailey Naqvi Confirmed By:Hesham Griffiths
--- NOTE | 2023-07-03 07:43 | Electrocardiogram Report ---
Test Reason : Blood Pressure : / mmHG Vent. Rate : 075 BPM Atrial Rate : 075 BPM P-R Int : 156 ms QRS Dur : 098 ms QT Int : 386 ms P-R-T Axes : 077 025 014 degrees QTc Int : 431 ms Poor data quality, interpretation may be adversely affected Normal sinus rhythm Probably normal When compared with ECG of 02-JUL-2023 06:20, (unconfirmed) No significant change Confirmed by Hesham Griffiths ([id number]) on 07/03/2023 7:42:53 AM Referred By: Bailey Naqvi Confirmed By:Hesham Griffiths
== END 2023-07-02 13:30 | disposition home or self-care (01) | DRG 392 ==
LOC: ED 15:23 → 3N 20:55